=== PATIENT | male | born 1960 | race Caucasian/White ===

== ENCOUNTER 2017-01-16 17:26 | Emergency (ER) | payer OTHER ==
[~2017-01-16] VITALS: Ht 177.8 cm; Wt 77.8 kg
[2017-01-16 17:35] VITALS: TEMP 36.5; Ht 177.8 cm; Wt 77.8 kg
[2017-01-16] MEDS ORDERED: SODIUM CHLORIDE 0.9% 1000ML 2,000 ML IV STA (17:56)
[2017-01-16] MEDS ORDERED: ONDANSETRON 8 MG/54 ML D5W IV STA (18:04)
[2017-01-16 18:34] LABS: BASO % 0.2 %; BASO ABS # 0.01 K/uL (0-0.2); COMPLETE YES; EOS % 0.4 %; HEMATOCRIT 48.8 % (42-52); IG% 0.2 %; LYMPH % 21.2 %; MEAN CELL VOLUME 96.4 fL (80-100); MEAN CORPUSCULAR HEMOGLOBIN 35.4 pg (25-34); MEAN CORPUSCULAR HGB CONC 36.7 g/dl (32-36); MEAN PLATELET VOLUME 9.5 fL (7.4-10.4); PLATELET COUNT 199 K/uL (130-400); RED BLOOD COUNT 5.06 M/uL (4.7-6.1); WHITE BLOOD COUNT 4.71 K/uL (4.8-10.8)
[2017-01-16 18:50] LABS: BUN/CREATININE RATIO 4.9 (10-20); CALCIUM 9.2 mg/dl (8.5-10.1); CREATININE 0.91 mg/dl (0.60-1.40)
[2017-01-16] MEDS ORDERED: LORAZEPAM 2 MG/ML 1 ML VIAL IV STA (19:47)
[2017-01-16] MEDS ORDERED: PROMETHAZINE HCL INJ 25 MG in SODIUM CHLORIDE 0.9% 50ML 50 ML IV STA (19:47)
[2017-01-16] MEDS ORDERED: SODIUM CHLORIDE 0.9% 1000ML 1,000 ML IV STA (19:48)
[2017-01-16 20:24] LABS: URINE APPEARANCE CLEAR (CLEAR); URINE COLOR ORANGE; URINE EPITHELIAL CELL AUTO >30 /lpf (0-5); URINE NITRITE NEG (NEG); UROBILINOGEN NEG (NEG)
[2017-01-16 20:38] LABS: MANUAL MICROSCOPIC REQUIRED? NO; REVIEW REQ? YES
[2017-01-16 20:39] LABS: URINE BILIRUBIN NEG (NEG)
--- NOTE | 2017-01-16 20:42 | DIAGNOSTIC IMAGING REPORT ---
ULTRASOUND RIGHT UPPER QUADRANT ABDOMEN CLINICAL HISTORY: Right upper quadrant abdominal pain. Elevated hepatic transaminases. COMPARISON STUDY: Abdominal CT dated 01/03/2016. TECHNIQUE: Real-time, grayscale, and color flow sonography of the right upper quadrant of the abdomen was performed. Images are reviewed in the transverse and longitudinal planes. FINDINGS: Liver: The liver is normal in size and slightly heterogeneous in echotexture. There is no intrahepatic biliary ductal dilatation. The main portal vein is patent. Gallbladder: The gallbladder is normal in appearance. No gallstones are identified. There is no gallbladder wall thickening or pericholecystic fluid. A sonographic Cooper's sign is reportedly absent. The common bile duct measures up to 0.3 cm in diameter. Pancreas: Visualized portions of the pancreatic head and body are normal in appearance. The distal pancreas was not visualized. The splenic vein is patent. Right kidney: Survey images of the right kidney demonstrate normal size and echotexture. There is no hydronephrosis. Ascites: None. IMPRESSION: No acute sonographic abnormality is identified in the right upper quadrant. No gallstones are seen. Electronically signed by: Gildardo Hawthorne M.D. 01/16/2017 8:41 PM Dictated Date/Time: 01/16/2017 8:39 PM
[2017-01-16 22:00] VITALS: BP 134/88; PULSE 87; O2SAT 94
[2017-01-16] MEDS ORDERED: PHENERGAN 25MG HOMEPACK PO ONE (22:15)
--- NOTE | 2017-01-16 22:15 | EMERGENCY ROOM VISIT NOTE ---
History Report prepared by Faina: Nesha Blackburn Under the Supervision of: Dr. José Miguel Vela M.D. First contact with patient: 17:56 Chief Complaint: VOMITING Stated Complaint: VOMITING, SHAKING Nursing Triage Summary: triage note: pt reports nausea, vomitting, diarrhea since this am. History of Present Illness The patient is a 56 year old male who presents to the Emergency Room with complaints of an episode of vomiting starting this morning. The patient complains of nausea, diarrhea, chills, and diaphoresis. The patient states that he had two bowel movements of diarrhea this morning and his last vomiting episode was just a few minutes ago. He reports that he does drink 2 6 packs a day, but couldn't drink anything this morning. He reports that when he tried to eat or drink anything this morning, he couldn't keep it down. Pt denies LOC, headache, fevers, visual changes, neck pain, chest pain, breathing difficulties , abdominal pain, back pain, melena, hematochezia, urinary symptoms, numbness, weakness, lymphadenopathy, rash, or other complaints. Source of History: patient Onset: this morning Position: other (global) Quality: other (global) Timing: other (episode) Associated Symptoms: + chills, + diaphoresis, + nausea, + diarrhea, No fevers, No abdominal pain, No melena, No hematochezia, No urinary symptoms Review of Systems See HPI for pertinent positives and negatives. A total of ten systems were reviewed and were otherwise negative. Past Medical & Surgical Medical Problems: (1) Alcohol abuse (2) BPH (benign prostatic hyperplasia) (3) Diabetes mellitus (4) Diabetic neuropathy associated with type 2 diabetes mellitus (5) Diabetic retinopathy (6) HTN (hypertension) (7) Rapid atrial fibrillation (8) Tobacco abuse Family History Denies family medical history Social History Smoking Status: Current Every Day Smoker Alcohol Use: other (2 6 packs a day) Drug Use: none Marital Status: in relationship Housing Status: lives with significant other Occupation Status: employed Current/Historical Medications Scheduled Finasteride (Proscar), 5 MG PO DAILY Metoprolol Tartrate (Metoprolol Tartrate), 50 MG PO BID Omeprazole (Prilosec), 20 MG PO DAILY Tamsulosin Hcl (Flomax), 0.4 MG PO DAILY Scheduled PRN Tramadol (Ultram), 100 MG PO BID PRN for Pain Allergies Coded Allergies: No Known Allergies (Unverified , 06/13/15) Physical Exam Vital Signs Date Time Temp Pulse Resp B/P (MAP) Pulse Ox O2 Delivery O2 Flow Rate FiO2 01/16/17 22:00 87 22 134/88 94 Room Air 01/16/17 20:00 98 20 156/89 98 Room Air 01/16/17 18:34 76 01/16/17 17:35 36.5 108 20 121/85 99 Room Air Physical Exam GENERAL: Awake, alert, mildly ill appearing, no distress HEAD: Normocephalic, atraumatic. No edema. EYES: Normal conjunctiva. Sclera non-icteric. OROPHARYNX: Lips, tongue, and mucosa unremarkable. No erythema or exudate. NECK: Supple. No nuchal rigidity. FROM. No adenopathy. RESPIRATORY: CTA bilaterally. No wheezes rales or rhonchi. CARDIAC: Borderline tachycardic rate, normal rhythm. ABDOMEN: Soft, non distended. No tenderness to palpation. No rebound or guarding. MUSCULOSKELETAL: Atraumatic. No edema. NEURO: Normal sensorium. SKIN: No rash or jaundice noted Medical Decision & Procedures ER Provider Diagnostic Interpretation: Radiology results as stated below per my review and radiologist interpretation: ULTRASOUND RIGHT UPPER QUADRANT ABDOMEN CLINICAL HISTORY: Right upper quadrant abdominal pain. Elevated hepatic transaminases. COMPARISON STUDY: Abdominal CT dated 01/03/2016. TECHNIQUE: Real-time, grayscale, and color flow sonography of the right upper quadrant of the abdomen was performed. Images are reviewed in the transverse and longitudinal planes. FINDINGS: Liver: The liver is normal in size and slightly heterogeneous in echotexture. There is no intrahepatic biliary ductal dilatation. The main portal vein is patent. Gallbladder: The gallbladder is normal in appearance. No gallstones are identified. There is no gallbladder wall thickening or pericholecystic fluid. A sonographic Cooper's sign is reportedly absent. The common bile duct measures up to 0.3 cm in diameter. Pancreas: Visualized portions of the pancreatic head and body are normal in appearance. The distal pancreas was not visualized. The splenic vein is patent. Right kidney: Survey images of the right kidney demonstrate normal size and echotexture. There is no hydronephrosis. Ascites: None. IMPRESSION: No acute sonographic abnormality is identified in the right upper quadrant. No gallstones are seen. Electronically signed by: Gildardo Hawthorne M.D. 01/16/2017 8:41 PM Dictated Date/Time: 01/16/2017 8:39 PM Laboratory Results 01/16/17 18:15 Red Blood Count 5.06, Mean Corpuscular Volume 96.4, Mean Corpuscular Hemoglobin 35.4, Mean Corpuscular Hemoglobin Concent 36.7, Mean Platelet Volume 9.5, Neutrophils (%) (Auto) 67.0, Lymphocytes (%) (Auto) 21.2, Monocytes (%) (Auto) 11.0, Eosinophils (%) (Auto) 0.4, Basophils (%) (Auto) 0.2, Neutrophils # (Auto ) 3.15, Lymphocytes # (Auto) 1.00, Monocytes # (Auto) 0.52, Eosinophils # (Auto ) 0.02, Basophils # (Auto) 0.01 01/16/17 18:15 Test 01/16/17 18:15 01/16/17 19:40 White Blood Count 4.71 K/uL (4.8-10.8) Red Blood Count 5.06 M/uL (4.7-6.1) Hemoglobin 17.9 g/dL (14.0-18.0) Hematocrit 48.8 % (42-52) Mean Corpuscular Volume 96.4 fL (80-100) Mean Corpuscular Hemoglobin 35.4 pg (25-34) Mean Corpuscular Hemoglobin Concent 36.7 g/dl (32-36) Platelet Count 199 K/uL (130-400) Mean Platelet Volume 9.5 fL (7.4-10.4) Neutrophils (%) (Auto) 67.0 % Lymphocytes (%) (Auto) 21.2 % Monocytes (%) (Auto) 11.0 % Eosinophils (%) (Auto) 0.4 % Basophils (%) (Auto) 0.2 % Neutrophils # (Auto) 3.15 K/uL (1.4-6.5) Lymphocytes # (Auto) 1.00 K/uL (1.2-3.4) Monocytes # (Auto) 0.52 K/uL (0.11-0.59) Eosinophils # (Auto) 0.02 K/uL (0-0.5) Basophils # (Auto) 0.01 K/uL (0-0.2) RDW Standard Deviation 42.8 fL (36.4-46.3) RDW Coefficient of Variation 12.2 % (11.5-14.5) Immature Granulocyte % (Auto) 0.2 % Immature Granulocyte # (Auto) 0.01 K/uL (0.00-0.02) Anion Gap 11.0 mmol/L (3-11) Est Creatinine Clear Calc Drug Dose 94.7 ml/min Estimated GFR () 109.6 Estimated GFR (Non- 94.5 BUN/Creatinine Ratio 4.9 (10-20) Calcium Level 9.2 mg/dl (8.5-10.1) Total Bilirubin 1.7 mg/dl (0.2-1) Direct Bilirubin 0.5 mg/dl (0-0.2) Aspartate Amino Transf (AST/SGOT) 75 U/L (15-37) Alanine Aminotransferase (ALT/SGPT) 67 U/L (12-78) Alkaline Phosphatase 80 U/L (45-117) Total Protein 7.2 gm/dl (6.4-8.2) Albumin 3.8 gm/dl (3.4-5.0) Lipase 161 U/L (73-393) Urine Color ORANGE Urine Appearance CLEAR (CLEAR) Urine pH 7.0 (4.5-7.5) Urine Specific Easley 1.020 (1.000-1.030) Urine Protein TRACE (NEG) Urine Glucose (UA) NEG (NEG) Urine Ketones 1+ (NEG) Urine Occult Blood NEG (NEG) Urine Nitrite NEG (NEG) Urine Bilirubin NEG (NEG) Urine Urobilinogen NEG (NEG) Urine Leukocyte Esterase TRACE (NEG) Urine WBC (Auto) 5-10 /hpf (0-5) Urine RBC (Auto) 5-10 /hpf (0-4) Urine Hyaline Casts (Auto) 1-5 /lpf (0-5) Urine Epithelial Cells (Auto) >30 /lpf (0-5) Urine Bacteria (Auto) NEG (NEG) Urine Renal Epithelial Cells /lpf (0-5) Urine Sperm (Auto) PRESENT (NOT PRESENT) Laboratory results reviewed by me Medications Administered Medications (Trade) Dose Ordered Sig/Alyssia Route Start Time Stop Time Status Last Admin Dose Admin Sodium Chloride 2,000 ml @ 999 mls/hr Q2H1M STAT IV 6/22/17 17:56 01/16/17 19:56 DC 01/16/17 18:25 999 MLS/HR Ondansetron HCl (Zofran 8mg Iv) 8 mg NOW STAT IV 01/16/17 18:04 01/16/17 18:05 DC 01/16/17 18:25 8 MG Promethazine HCl 25 mg/Sodium Chloride 51 ml @ 204 mls/hr NOW STAT IV 01/16/17 19:47 01/16/17 20:01 DC 01/16/17 20:03 204 MLS/HR Lorazepam (Ativan Inj) 1 mg NOW STAT IV 01/16/17 19:47 01/16/17 19:49 DC 01/16/17 19:56 1 MG Sodium Chloride 1,000 ml @ 200 mls/hr Q5H STAT IV 01/16/17 19:48 01/17/17 00:47 01/16/17 20:57 200 MLS/HR ED Course 175: Ordered NSS 2000 ml @ 999 mls/hr IV. 1802: The patient was evaluated in room C5. A complete history and physical exam was performed. 1803: Ordered Zofra 8mg Iv 8 mg IV. 1934: I reevaluated the patient. His nausea and vomiting has resolved. Upon reexamination he has right upper quadrant tenderness, so he will be having an ultra sound done. 1946: Ordered Ativan Inj 1 mg IV, Promethazine HCl 25 mg/Sodium Chloride 51 ml @ 204 mls/hr IV. 1947: Ordered NSS 1000 ml @ 200 mls/hr IV. 2102: I reevaluated the patient. He is feeling better. Oral challenge initiated. 2204: Patient reevaluated. Oral challenge is going well. Discussed further evaluation and management as an outpatient. Home pack for Phenergan will be given. Close follow-up with PCP will be necessary. Discussed his alcohol use. I gave my usual and customary discussion regarding this issue. Medical Decision Medication Reconciliation: I attest that I have personally reviewed the patient' s current medication list Blood pressure screening: Patient was found to have an elevated blood pressure and was referred to their primary doctor for recheck and further treatment. Triage Nursing notes reviewed. The patient's presentation and history were concerning for nausea vomiting and diarrhea. Etiologies such as gastroenteritis, food borne illness, infections, obstruction , pancreatitis, appendicitis, diverticulitis, inflammatory bowel disease, GI bleed, biliary pathology, toxicologic, alcohol-related issues, as well as others were entertained. The patient was evaluated. He had a benign abdomen. He had vomiting and diarrhea. He was hydrated and given Zofran. On reassessment the patient was doing better. He was checked again and was having some right upper quadrant abdominal discomfort. His CBC and chemistry panel are unremarkable although his LFTs were minimally elevated. He has had subtle elevations in the past. Since the patient has minimal elevation of his LFTs he went for ultrasound imaging which was unremarkable. I suspect that this may be related to his alcohol use which seems to be significant. The patient was given Phenergan and a dose of IV Ativan. He does not appear to be exhibiting significant signs of withdrawal at this time. He denies any history of blacking out, withdrawals, or seizures. He will need further management for his alcohol use. The patient was given an oral challenge and did very well with this. He desired discharge. Since he has no pain at this point in time and his diagnostic testing is rather unremarkable I believe he can be discharged to follow-up closely as an outpatient. The patient was in agreement. Return instructions were outlined and he was discharged in stable condition. By the evaluation outlined above other emergent etiologies such as those listed in the differential, as well as others, were deemed relatively unlikely. The patient was educated about the findings as listed above. All questions were answered and the patient was pleased with the treatment. Return instructions were outlined and the patient was discharged in stable condition. The patient was referred to his PCP for follow-up for a recheck of the current condition. Impression Primary Impression: Nausea, vomiting, and diarrhea Additional Impression: Alcohol abuse Scribe Attestation The scribe's documentation has been prepared under my direction and personally reviewed by me in its entirety. I confirm that the note above accurately reflects all work, treatment, procedures, and medical decision making performed by me. Departure Information Dispostion Home / Self-Care Referrals Jojo Mckeon MD (PCP) Patient Instructions [facility] Additional Instructions VOMITING INSTRUCTIONS: DO NOT drive, drink alcohol, operate machinery, or perform dangerous activities today. You were given medications in the ER that can affect your ability to safely function or operate a vehicle. Phenergan(promethazine) tablets 25mg: Take one every six hours as needed for nausea. Avoid alcohol, operating machinery or dangerous equipment, working on ladders or roofs, DRIVING, or situations where being under the influence may be dangerous. Ibuprofen(Motrin, Advil) may be used for fever or pain. Use 600mg every six hours as needed. Take with food. Avoid using more than 2400mg in a 24 hour period. Do not use 2400mg per day for more than three consecutive days without physician direction. Prolonged inappropriate use can lead to stomach upset or ulcers. Rest and drink plenty of fluids as tolerated. Slow sips of water or sports drinks are recommended instead of large amounts all at once. Continue current medications. Once your stomach is settled start with a clear liquid diet (jello, soup broth, etc.) and then advance as tolerated. You should avoid full, heavy meals for about 24 hrs from the time your symptoms resolved. Return to the ER for persistent vomiting, fevers, abdominal pain, chest pains, difficulty breathing, black or bloody stools, worsening of your condition, or as needed. Follow up with your primary physician in one to 2 Days for a recheck of your current condition. A recheck of your blood pressure and liver functions will be necessary. Also discussed your alcohol use. Problem Qualifiers
== END 2017-01-16 22:25 | disposition home or self-care (01) ==
LOC: C.EDB 17:27 → C.EDC 22:25
DX: R11.2 Nausea with vomiting, unspecified (principal); R11.0 Nausea; F10.10 Alcohol abuse, uncomplicated; I10 Essential (primary) hypertension; E11.40 Type 2 diabetes mellitus with diabetic neuropathy, unspecified; E11.319 Type 2 diabetes mellitus with unspecified diabetic retinopathy without macular edema; I48.91 Unspecified atrial fibrillation; F17.200 Nicotine dependence, unspecified, uncomplicated; Z79.899 Other long term (current) drug therapy

== ENCOUNTER → 2017-01-16 | Outpatient (CLI) | payer OTHER ==
[~2017-01-16] MED LIST: ASPI81TA28 PO; FINA5TAB4 PO; METO50TA17 PO; PRLSR20 PO; TAMS0.4C38 PO; TRAM-10 PO
[2017-01-16 12:01] LABS: BASO % 0.5 %; BASO ABS # 0.02 K/uL (0-0.2); COMPLETE YES; EOS % 3.4 %; HEMATOCRIT 48.7 % (42-52); LYMPH % 40.7 %; LYMPH ABS # 1.77 K/uL (1.2-3.4); MEAN CORPUSCULAR HEMOGLOBIN 35.7 pg (25-34); MEAN CORPUSCULAR HGB CONC 36.8 g/dl (32-36); MEAN PLATELET VOLUME 9.6 fL (7.4-10.4); MONO % 9.4 %; PLATELET COUNT 221 K/uL (130-400); RED BLOOD COUNT 5.02 M/uL (4.7-6.1); WHITE BLOOD COUNT 4.35 K/uL (4.8-10.8)
[2017-01-16 12:28] LABS: ESTIMATED AVERAGE GLUCOSE 111 mg/dl; HA1C FLAG Normal (Normal)
[2017-01-16 12:29] LABS: ALT/SGPT 64 U/L (12-78); BLOOD UREA NITROGEN 3 mg/dl (7-18); BUN/CREATININE RATIO 4.4 (10-20); CALCIUM 8.6 mg/dl (8.5-10.1); CARBON DIOXIDE 23 mmol/L (21-32); CHLORIDE 102 mmol/L (98-107); CHOLESTEROL 205 mg/dl (0-200); CREATININE 0.73 mg/dl (0.60-1.40); GLUCOSE 117 mg/dl (70-99); SODIUM 138 mmol/L (136-145); TRIGLYCERIDES 124 mg/dl (0-150); VERY LOW DENSITY LIPOPROT CALC 25 mg/dl
[2017-01-16 12:39] LABS: CHOLESTEROL/HDL RATIO 2.1; HDL CHOLESTEROL 96 mg/dl; LDL CHOLESTEROL CALCULATED 84 mg/dl
== END | disposition home or self-care (01) ==
LOC: C.LABPBG 08:55
PROVIDERS: ATTEND Family Medicine
DX: E11.42 Type 2 diabetes mellitus with diabetic polyneuropathy (principal); E11.9 Type 2 diabetes mellitus without complications; F41.9 Anxiety disorder, unspecified

== ENCOUNTER 2021-12-21 10:48 | Observation (INO) ==
--- NOTE | 2021-12-13 15:16 | Anesthesiology Consultation ---
Date of Service December 13, 2021 Assessment & Plan Chart Review Chart Review: Acceptable Risk for Surgery Consults Requested none Cardiology note dated 11/14/2021 " risks are explained at least moderate multifactorial recommend nuclear stress test." Nuclear stress test was performed on 12/06/2021 which was negative for ischemia. History Surgery Operation Date: 12/21/21 16:00 Proposed Procedures p Right Ankle Incision and Drainage Medial Ulceration, Saucerization Medial Malleolus with Imlpantation of Stimulus Beads, Possible Evacuation of Bone Cyst Talus, Application Picc Line for Antibiotic - Davide Robles DO Height/Weight Height: 5 ft 10 in Weight: 94.347 kg Allergies Allergy/AdvReac Type Severity Reaction Status Date / Time No Known Allergies Allergy Verified 12/13/21 13:18 Medications Home Medications Medication Instructions Recorded Confirmed Last Taken metoprolol tartrate 50 mg tablet 50 mg PO BID tab 03/29/19 12/13/21 02/06/21 08:00 Medical Marijuana 1 dose INHALATION DAILY PRN 03/14/21 12/13/21 Unknown metformin 1,000 mg tablet 500 mg PO BID #180 tab 05/01/21 12/13/21 Unknown cholecalciferol (vitamin D3) 1,250 50,000 unit PO .COMPLEX 90 Days 10/29/21 12/13/21 Unknown mcg (50,000 unit) capsule #24 cap atorvastatin 80 mg tablet 80 mg PO PM #90 tab 11/01/21 12/13/21 Unknown amitriptyline 25 mg tablet 25 mg PO QPM #30 tab 11/12/21 12/13/21 Unknown meloxicam 7.5 mg tablet 7.5 mg PO BID PRN #180 tab 11/12/21 12/13/21 Unknown Past Medical History Medical History (Updated 12/13/21 @ 15:11 by Dorie Lee DO) Acne Alcohol dependence, daily use 6 pack beer per day per patient Anxiety Arthritis Atrial fibrillation Dx 2014, follows with [facility] cardiology Background diabetic retinopathy associated with type 2 diabetes mellitus BPH (benign prostatic hyperplasia) COPD (chronic obstructive pulmonary disease) Diabetes type 2, uncontrolled NIDDM Diabetic neuropathy Hyperlipidemia Hypertension Mass of subcutaneous tissue of back stable x several years (right upper side) Pancreatic mass Stable per pt Personal history of diabetic foot ulcer Right Segmental and somatic dysfunction of upper extremity Temporomandibular joint disorder Right side clicking, no locking Exercise / Class Metabolic Activity III < 4 Walking/Shop/Light housework Chronic cough, RAMOS with minimal activity Past Family History Family History Grandfather Myocardial infarction Father Diabetes Mother Dementia Brother , GI hemorrhage, age 61 No problems noted. Sister No problems noted. Sister No problems noted. Sister No problems noted. Denies family history of Ovarian cancer Prostate cancer Breast cancer Colorectal cancer Past Surgical History Surgical History (Updated 12/13/21 @ 15:11 by Dorie Lee DO) History of esophagogastroduodenoscopy (EGD) History of hand surgery CHILD History of tooth extraction Status post laser cataract surgery of both eyes Past Anesthesia History No Hx of Anesthesia Complications and No Family Hx of Anesthesia Complications History of PONV No Hx of PONV and No Hx of Motion Sickness Social History Smoking Status: Current every day smoker tobacco type: cigarettes Smoking cigarettes per day: 1 PPD x 40+ years ADVISED Do You Dip or Chew Tobacco: No Hx Alcohol Use: Yes (6 PCK PER DAY) Alcohol type: beer alcohol intake frequency: 3 or more drinks per day Hx Substance Use: Yes substance use type: marijuana Substance Use Type Other:: medical card prn Last Used Substance Other:: 4 DAYS AGO- ONLY USES WHEN NEEDED, NOT DAILY Testing Laboratory Results 10/23/2021 Sodium 133 Potassium 4.6 BUN/creatinine 13/1.07 Glucose 288 Hemoglobin A1c 9.8 W BC 6.9 H/H16.3/44.7 Platelet 266 Electrocardiogram Date: 03/08/21 Findings: + NSR @ (90) Echocardiogram Date: 01/04/21 EF: 55-59 LV Function: normal Other Findings: + LVH (Mild concentric) Valvular Disease: + no significant valvular disease Stress Test Date: 12/06/21 Type: nuclear Findings: + WNL and + achieved max HR; no ischemia Resting EF: >70% Resting LV Function: normal Resting RWMA: + none Valvular Disease: no significant valvular disease
--- NOTE | 2021-12-20 16:36 | History & Physical Report ---
Date of Service December 20, 2021 Assessment & Plan (1) Closed trimalleolar fracture of right ankle with nonunion: Plan: Schedule a Right Ankle Incision and Drainage Medial Ulceration, Saucerization Medial Malleolus with Implantation of Antibiotic Stimulan Beads, Possible Evacuation of Bone Cyst Talus for 12/20/2021. All potential risks, benefits, complications, alternatives, and rehab have been discussed with the patient and he wishes to proceed. Plan for ASA 81 mg BID x 4 wks for post op DVT prophylaxis. We also discussed probable 6 weeks IV antibiotics post procedure. (2) Achilles tendon contracture, right: (3) Post-traumatic arthritis of ankle: (4) Acquired valgus deformity of right ankle: (5) Ulcer of right ankle: (6) Osteomyelitis of right tibia: History of Present Illness Chief Complaint: Right ankle wound/deformity Primary Care Provider: Jojo Mckeon MD This is a patient who sustained a right ankle trimalleolar ankle fracture approximately 1 year ago. He was instructed to maintain NWB status but he failed to do so. He was later set up for a pantalar fusion with a retrocalcaneal nail but was later canceled because inpatient surgeries were not being performed secondary to Covid admissions at [facility]. The patient then returned to the office with draining wound at the medial malleolus after he continued to walk on the lower leg. An MRI noted bone marrow edema within the medial malleolus at the level of the medial malleolus ulceration. He is now being set up for surgical I & D of the ankle wound. Allergies Allergy/AdvReac Type Severity Reaction Status Date / Time No Known Allergies Allergy Verified 12/13/21 13:18 Home Medications Medication Instructions Recorded Confirmed Type metoprolol tartrate 50 mg tablet 50 mg PO BID tab 03/29/19 12/13/21 History Medical Marijuana 1 dose INHALATION DAILY PRN 03/14/21 12/13/21 History metformin 1,000 mg tablet 500 mg PO BID #180 tab 05/01/21 12/13/21 Rx cholecalciferol (vitamin D3) 1,250 50,000 unit PO .COMPLEX 90 Days 10/29/21 12/13/21 Rx mcg (50,000 unit) capsule #24 cap atorvastatin 80 mg tablet 80 mg PO PM #90 tab 11/01/21 12/13/21 Rx amitriptyline 25 mg tablet 25 mg PO QPM #30 tab 11/12/21 12/13/21 Rx meloxicam 7.5 mg tablet 7.5 mg PO BID PRN #180 tab 11/12/21 12/13/21 Rx Past Med/Surg History Medical History Acne Alcohol dependence, daily use 6 pack beer per day per patient Anxiety Arthritis Atrial fibrillation Dx 2014, follows with [facility] cardiology Background diabetic retinopathy associated with type 2 diabetes mellitus BPH (benign prostatic hyperplasia) COPD (chronic obstructive pulmonary disease) Diabetes type 2, uncontrolled NIDDM Diabetic neuropathy Hyperlipidemia Hypertension Mass of subcutaneous tissue of back stable x several years (right upper side) Pancreatic mass Stable per pt Personal history of diabetic foot ulcer Right Segmental and somatic dysfunction of upper extremity Temporomandibular joint disorder Right side clicking, no locking Surgical History History of esophagogastroduodenoscopy (EGD) History of hand surgery CHILD History of tooth extraction Status post laser cataract surgery of both eyes Family History Grandfather Myocardial infarction Father Diabetes Mother Dementia Brother , GI hemorrhage, age 61 No problems noted. Sister No problems noted. Sister No problems noted. Sister No problems noted. Denies family history of Ovarian cancer Prostate cancer Breast cancer Colorectal cancer Social History Smoking Status: Current every day smoker Tobacco Type: Cigarettes Age Started Using Tobacco: 19; packs per day: 1; Cigarettes Per Day: 1 PPD x 40+ years ADVISED; Second Hand Exposure: No; Hx Alcohol Use: Yes (6 PCK PER DAY) Alcohol type: beer Alcohol type Comment: 6 PACK DAILY PER PT Hx Substance Use: Yes Last Used Substance Other:: 4 DAYS AGO- ONLY USES WHEN NEEDED, NOT DAILY Substance Use Type Other:: medical card prn Preferred Language: Mongolian Communication Ability: Effective Visual Impairment: No Limitations Hearing Ability: Normal Supervisor Waterproofing Required: No Beliefs That Will Affect Care: None marital status: Single Current Living Situation: Alone Current Living Situation Comment: states has no one to help current occupational status: employed current occupation: [employer] Feels Safe at Home: Yes Childhood Exposure to Second-Hand Smoke: No caffeine: No during the past year weight has: remained stable Dental Care, Regularly: No Physical Activity Frequency: Does not Exercise Seatbelt Use: always Sunscreen Use: No Assistive Devices: Crutches, Denture - Upper, Denture - Lower, Glasses and Wheelchair Physical Exam Constitutional: well developed and well nourished; no acute distress ENMT: external ear and nose normal, oropharynx normal Neck: trachea midline Respiratory: normal respiratory effort, lungs clear to auscultation Cardiovascular: Rate/Rhythm: regular rate and regular rhythm Gastrointestinal (Abdomen): normal bowel sounds, soft, nontender, no hepatosplenomegaly Musculoskeletal: Ankle: + deformity (Valgus right ankle) and + skin erythema (Mild right medial malleolus); no ecchymosis Skin: no rashes, warm and dry + ulcer (Right medial ankle) Neurologic: normal touch/pain/proprioception Psychiatric: A+Ox3, euthymic affect Speech: normal rate/rhythm/volume of speech Lymphatic: no cervical or axillary lymphadenopathy
[~2021-12-21 10:48] MED LIST changes: -ASPI81TA28 PO; -FINA5TAB4 PO; +LACTATED RINGER'S 1,000 ML IV SCH; -METO50TA17 PO; -PRLSR20 PO; -TAMS0.4C38 PO; -TRAM-10 PO; +ceFAZolin 2000MG 2,000 MG/15 ML SYR IV SCH
--- NOTE | 2021-12-21 11:14 | History & Physical Bridge Note ---
Date of Service December 21, 2021 History & Physical Bridge Note I have examined the patient, reviewed the History & Physical and in the interval since the performance of the History & Physical I have noted the following changes of clinical significance: no changes noted
[2021-12-21] MEDS ORDERED: ROPIVACAINE 0.5% 5 MG/ML 30 ML VIAL ONE ×2 (12:47→13:45)
[2021-12-21] MEDS ORDERED: MIDAZOLAM HCL 1 MG/ML 2ML VIAL ONE (13:00)
[2021-12-21] MEDS ORDERED: ONDANSETRON INJ 2 MG/ML 2 ML VIAL ONE (13:00)
[2021-12-21] MEDS ORDERED: PROPOFOL IV EMULSION 10 MG/ML 20 ML VIAL IV ONE (13:00)
[2021-12-21] MEDS ORDERED: fentaNYL citrate 100 MCG/2 ML VIAL ONE (13:00)
[2021-12-21] MEDS ORDERED: DEXAMETHASONE SOD INJ 4 MG/ML VIAL IV PRN (14:01)
[2021-12-21] MEDS ORDERED: HYDROmorphone INJ 2 MG/ML SYR/VIAL IV PRN (14:01)
[2021-12-21] MEDS ORDERED: ACETAMINOPHEN 500 MG TAB PO STA (14:01)
[2021-12-21] MEDS ORDERED: ONDANSETRON INJ 2 MG/ML 2 ML VIAL IV PRN ×2 (14:01→17:31)
[2021-12-21] MEDS ORDERED: ePHEDrine sulfate 50 MG/ML AMP IV PRN (14:01)
[2021-12-21] MEDS ORDERED: ATROPINE SULFATE 0.1 MG/ML 10ML SYR IV PRN (14:01)
[2021-12-21] MEDS ORDERED: ceFAZolin 330 MG/ML 1 GM VIAL ONE (14:13)
[2021-12-21] MEDS ORDERED: KETAMINE 50 MG/5 ML SYRINGE ONE (14:33)
[2021-12-21] MEDS ORDERED: VANCOMYCIN HCL 1000MG/20ML VIAL ONE (14:52)
[2021-12-21] MEDS ORDERED: GENTAMICIN SULFATE 40 MG/ML 2 ML VIAL ONE (14:52)
[2021-12-21] MEDS ORDERED: ePHEDrine sulfate 50 MG/ML SYR ONE (14:55)
--- NOTE | 2021-12-21 15:44 | Post Operative Brief Note ---
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 Saucerization Medial Malleolus bone with Implantation of antibiotic Stimulan Beads. Excision avulsion fracture medial talus- Davide Robles DO Surgeon Davide Robles DO [employer] Process Worker Josue Velasco PA-C Estimated Blood Loss 2 Findings Consistent with Post-Op Diagnosis Specimens Aerobic anaerobic Gram stain medial ankle deep soft tissue Bone for analysis of osteomyelitis medial malleolus Anesthesia Type General Regional Complications none Disposition Accompanied Patient To Recovery: No Overlapping Procedure I was present for: the critical portions of procedure. I was immediately available: during the entire case.
[2021-12-21] MEDS ORDERED: LABETALOL HCL IV 5 MG/ML 20ML IV STA ×2 (16:19→16:42)
[2021-12-21] MEDS ORDERED: LABETALOL HCL IV 5 MG/ML 20ML IV ONE (16:20)
[2021-12-21] MEDS ORDERED: NALOXONE HCL 0.4 MG/1 ML VIAL/CARP IV PRN (17:31)
[2021-12-21] MEDS ORDERED: HYDROmorphone INJ 0.5 MG/0.5 ML SYR IV PRN (17:31)
[2021-12-21] MEDS ORDERED: MELOXICAM 7.5 MG TAB PO PRN (17:31)
[2021-12-21] MEDS ORDERED: ALUMINUM/MAGNESIUM SUSP 30 ML UDC PO PRN (17:31)
[2021-12-21] MEDS ORDERED: PHARMACY GLYCEMIC MGMT CONSULT PRN (17:31)
[2021-12-21] MEDS ORDERED: NON-FORMULARY MEDICATION (Medical Marijuana 1 EA) INH PRN (17:31)
[2021-12-21] MEDS ORDERED: MAGNESIUM HYDROXIDE SUSP 30 ML UDC PO PRN (17:31)
[2021-12-21] MEDS ORDERED: oxyCODONE HCL IR 5 MG TAB (IMMEDIATE RELEASE) PO PRN (17:31)
[2021-12-21] MEDS ORDERED: METOCLOPRAMIDE HCL INJ 5 MG/ML 2 ML VIAL IV PRN (17:31)
[2021-12-21] MEDS ORDERED: bisacodyL 10 MG SUPP PR PRN (17:31)
[2021-12-21] MEDS ORDERED: diphenhydrAMINE Capsule 25 MG CAP PO PRN (17:31)
--- NOTE | 2021-12-21 17:46 | Anesthesiology Progress Note ---
Date of Service December 21, 2021 Anesthesia Post Procedure Vital Signs Vital Signs: Temp Pulse Pulse Resp BP Pulse Ox 12/21/21 17:15 36.4 C L 66 16 173/96 H 96 12/21/21 16:50 66 13 156/87 H 95 12/21/21 16:40 71 18 205/105 H 97 12/21/21 16:30 67 14 186/109 H 95 12/21/21 16:20 68 13 207/108 H 96 12/21/21 16:10 73 20 190/100 H 96 12/21/21 16:00 70 12 207/109 H 98 12/21/21 15:54 36.0 C L 72 21 183/87 H 100 12/21/21 11:00 36.5 C 72 18 168/96 H 98 Pain Intensity Right Lower Chest: Pain Intensity: 2 Transfer of Care Handoff Completed per policy Notes Mental Status: alert / awake / arousable Patient Amnestic to Procedure: Yes Nausea / Vomiting: adequately controlled Pain: adequately controlled Airway Patency, RR, SpO2: stable & adequate BP & HR: stable & adequate Hydration State: stable & adequate Anesthetic Complications: no major complications apparent
[2021-12-21] MEDS: SODIUM CHLORIDE 0.9% 1000ML 1,000 ML IV SCH (18:06)
--- NOTE | 2021-12-21 18:07 | Operative Report (OR) ---
DATE OF PROCEDURE: 12/21/2021 PREOPERATIVE DIAGNOSES: 1. Right ankle closed trimalleolar fracture with nonunion. 2. Ulcer, medial ankle, 2.5 cm diameter x 0.2 cm deep. 3. Osteomyelitis of the medial malleolus. 4. Achilles tendon contracture. 5. Posttraumatic arthritis of the right ankle. 6. Acquired valgus deformity of the right ankle. POSTOPERATIVE DIAGNOSES: 1. Right ankle closed trimalleolar fracture with nonunion. 2. Ulcer, medial ankle, 2.5 cm diameter x 0.2 cm deep. 3. Osteomyelitis of the medial malleolus. 4. Achilles tendon contracture. 5. Posttraumatic arthritis of the right ankle. 6. Acquired valgus deformity of the right ankle. 7. Avulsion fracture of the medial talus. PROCEDURES PERFORMED: 1. Right ankle irrigation and debridement, medial ankle ulceration, 2.5 cm in diameter x 0.2 cm deep including skin, dermis and subcutaneous tissue. 2. Saucerization of the medial malleolus bone with implantation of antibiotic Stimulan beads 5 mL. 3. Excision of avulsion fracture of the medial talus. SURGEON: Davide Robles DO. CUSTODIAL SERVICES MANAGER: Josue Velasco PA-C who was present for patient positioning, sterile prep and drape, management of retractors and instruments. He was present through the critical portions of the case i ncluding wound closure, application of sterile dressing and transport of the patient to recovery. ANESTHESIA: General, regional. SPECIMENS: 1. Aerobic, anaerobic, Gram stain, medial ankle deep soft tissue. 2. Bone for analysis of osteomyelitis, medial malleolus. DRAINS: None. COMPLICATIONS: None. BLOOD LOSS: 2 mL. PERTINENT HISTORY: This is a 61-year-old gentleman who sustained a trimalleolar ankle fracture. He was seen initially in the Emergency Department who recommended the patient to follow up in the clinic . The patient delayed seeking any type of care for multiple weeks and presented walking on the ankle with severe valgus deformity. The patient was instructed and scheduled for surgery. The patient is noncompliant and had other mitigating circumstances, which disallowed him from being able to have jimenes rgery. The patient then continued to walk on the ankle, developed a severe valgus deformity with a n onunion of the trimalleolar ankle fracture. Subsequently, had radiographs and MRI, which demonstrate osteomyelitis of the medial malleolus. He developed an ulcer over the medial ankle due to the sever e deformity, noted to be 2.5 cm diameter x 0.2 cm deep. Also noted to have Achilles tendon contractu re and pain and disability with ambulation. The patient was then scheduled for surgery as indicated. All potential risks, benefits, complications, alternatives, rehab potential for incomplete relief of symptoms, need for further surgery, DVT, PE, , persistent pain, swelling, scarring, weakness, ne urovascular injury, wound complications, nonunion, malunion, and need for further amputation were dis cussed with the patient. The patient decided to proceed with the procedure as indicated. DESCRIPTION OF PROCEDURE: The patient was taken to the operative suite and placed supine on the oper ating room table. After he had received a regional anesthetic, he was then anesthetized, LMA was pl aced. Tourniquet was placed high on the right thigh over cast padding. Right lower extremity was th en sterilely prepped and draped, elevated and exsanguinated with an Esmarch bandage and tourniquet in flated to 325 mmHg. Next, a 15 blade scalpel was used to make an incision along the medial ulceration measuring 2.5 cm di ameter x 0.2 cm deep. This was then incised in its mid plane, damaged portion of the tissue includin g skin, subcutaneous tissue and dermis were sharply excised using a 15 blade scalpel. Once the devit alized tissue was sharply excised, the tissue was then retracted with Yanet rakes revealing deep soft tissue and appeared to be fibrous tissue overlying the medial malleolus. The deep soft tissue was th en partially excised and then sent for culture, aerobic, anaerobic, Gram stain. Next, the tissue was excised and mobilized the medial malleolus. Medial malleolus was noted to be si gnificantly softened particularly adjacent to the periosteal layer. Next, due to the severe deformit y of the ankle and continued risk of having ulceration on the medial malleolus with the patient's cur rent condition, it was decided to perform a saucerization of the medial malleolus. Therefore, a lar ge wide osteotome was then used to excise the majority of the medial malleolus, leaving a small porti on of the medial malleolus to avoid violating the ankle joint. The large fragment of bone was then s harply excised using a 15 blade scalpel. Areas of nonunion were evident from the previous fracture. Next, an avulsion fracture of the medial talus was also encountered. This was then sharply excised using a combination of 15-blade scalpel and pituitary rongeur. All devitalized tissue and necrotic b one was removed from the site. Bone was sent as a specimen for pathology to assess for osteomyelitis . Next, top gloves and top sheet were changed. Pulsatile lavage was used with Ancef additive to lavage the site until clear. Next, antibiotic Stimulan beads 5 mL with vancomycin and gentamicin were then created and then the small beads were then packed into the medial ankle to provide continuous antibi otic elution. The deep remnants of the deltoid ligament and deep soft tissue were then closed using 2-0 Vicryl, the dermis was closed using buried interrupted 2-0 Vicryl, skin was closed using nylon jimenes tures. A sterile compressive dressing was applied, overwrapped with an Marino wrap. The tourniquet was released. The patient was awakened and taken to recovery in stable condition. Job ID: [id number]
--- NOTE | 2021-12-21 19:01 | Hospitalist Consultation ---
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 Doing well without complaints. - IVF/pain management/stool regimen/anti emetics/abx/DVT ppx per primary team. - rescue narcan ordered. - ordered blood cultures due to osteomyelitis and concern for bacteremia, although patient has already received abx. a previous wound culture (right toe) from September 2020 grew MSSA, would recommend ID consult, if concern for MSSA bacteremia, PICC line with 6 week IV cefazolin or other choice of abx may be necessary. (2) Diabetes type 2, uncontrolled: - on metformin at home, hold while inpt. - accuchecks ACHS with SSI. - encourage tight control of sugars for optimal wound healing. - continue amitriptyline 25mg HS for neuropathy starting tonight POD#0. (3) HTN (hypertension): - continue metoprolol tartrate 50 mg BID for HTN/afib starting tonight POD#0. (4) Hyperlipidemia: - continue atorvastatin 80 mg hs starting tonight POD#0. (5) Tobacco abuse: - offered nicotine patch, patient declines. (6) Alcohol dependence, daily use: - reports he consumes a 6 pack daily, last drink 2 days ago, 4. - offered alcohol while here overnight, patient denies. Will order AWSS. - recommend decreasing alcohol intake or cessation. - med/surg. - dvt ppx per primary team - full code. Supervising Physician Co-Signing Physician Notes I personally saw and examined the patient. I verified all renteria points and agree with Miranda Foster PA-C with the following exceptions and/or additions: 61 year old male presents for elective I&D right ankle ulceration. POD #0. O/E HS 1+2, no murmurs, Chest CTAB, surgical dressing not removed, no sensation in right toes, cap refill < 2s right toes, pulses not palpated as under surgical dressing. A/P Right ankle osteomyelitis - POD #0 I&D. would consider ID consult pending blood and surgical cultures. Blood cultures taken given OM noted and prior MSSA from September right toe. Prior MSSA from right toe concerning for needing IV antibiotic course. History of Present Illness Reason for Consultation: Medication management Attending Physician: Davide Robles DO History of Present Illness Mr. Lind is a 61-year-old male with past medical history significant for paroxysmal afib, hypertension, hyperlipidemia, DM2, daily alcohol use, BPH, and panic disorder who was admitted today for right ankle I&D with antibiotic beads implantation. Hospitalist group was consulted for medication management. Today, he is POD#0. He is doing well, without complaints. Allergies Allergy/AdvReac Type Severity Reaction Status Date / Time No Known Allergies Allergy Verified 12/21/21 11:19 Home Medications Medication Instructions Recorded Confirmed Type metoprolol tartrate 50 mg tablet 50 mg PO BID tab 03/29/19 12/21/21 History Medical Marijuana 1 dose INHALATION DAILY PRN 03/14/21 12/21/21 History metformin 1,000 mg tablet 500 mg PO BID #180 tab 05/01/21 12/21/21 Rx cholecalciferol (vitamin D3) 1,250 50,000 unit PO .COMPLEX 90 Days 10/29/21 12/21/21 Rx mcg (50,000 unit) capsule #24 cap atorvastatin 80 mg tablet 80 mg PO PM #90 tab 11/01/21 12/21/21 Rx amitriptyline 25 mg tablet 25 mg PO QPM #30 tab 11/12/21 12/21/21 Rx meloxicam 7.5 mg tablet 7.5 mg PO BID PRN #180 tab 11/12/21 12/21/21 Rx Patient History Medical History Acne Alcohol dependence, daily use 6 pack beer per day per patient Anxiety Arthritis Atrial fibrillation Dx 2014, follows with [facility] cardiology Background diabetic retinopathy associated with type 2 diabetes mellitus BPH (benign prostatic hyperplasia) COPD (chronic obstructive pulmonary disease) Diabetes type 2, uncontrolled NIDDM Diabetic neuropathy Hyperlipidemia Hypertension Mass of subcutaneous tissue of back stable x several years (right upper side) Pancreatic mass Stable per pt Personal history of diabetic foot ulcer Right Segmental and somatic dysfunction of upper extremity Temporomandibular joint disorder Right side clicking, no locking Surgical History History of esophagogastroduodenoscopy (EGD) History of hand surgery CHILD History of tooth extraction Status post laser cataract surgery of both eyes Family History Grandfather Myocardial infarction Father Diabetes Mother Dementia Brother , GI hemorrhage, age 61 No problems noted. Sister No problems noted. Sister No problems noted. Sister No problems noted. Denies family history of Ovarian cancer Prostate cancer Breast cancer Colorectal cancer Social History Smoking Status: Current every day smoker Tobacco Type: Cigarettes Age Started Using Tobacco: 19; packs per day: 1; Cigarettes Per Day: 1 PPD x 40+ years ADVISED; Second Hand Exposure: No; Do You Dip or Chew Tobacco: No; Tobacco Cessation Education Requested by Patient: No Hx Alcohol Use: Yes (6 PCK PER DAY) Alcohol type: beer Alcohol type Comment: 6 PACK DAILY PER PT Hx Substance Use: Yes Last Used Substance Other:: 4 DAYS AGO- ONLY USES WHEN NEEDED, NOT DAILY Substance Use Type Other:: medical card prn Preferred Language: Tristanian Communication Ability: Effective Visual Impairment: No Limitations Hearing Ability: Normal Hay Chopper Required: No Beliefs That Will Affect Care: None marital status: Single Current Living Situation: Alone Current Living Situation Comment: states has no one to help current occupational status: employed current occupation: SELF EMPLOYEED - [employer] Other Information That Helps Us Care for You: No Feels Safe at Home: Yes Safety Concerns: Feels Safe At This Time Childhood Exposure to Second-Hand Smoke: No caffeine: No during the past year weight has: remained stable Dental Care, Regularly: No Physical Activity Frequency: Does not Exercise Seatbelt Use: always Sunscreen Use: No Assistive Devices: Crutches, Denture - Upper, Denture - Lower, Glasses and Wheelchair Assistive Devices Comment: IS CURRENTLY USING WHEELCHAIR B/C ANKLE FX, STATES CAN GET AROUND OK Results & Data Results & Data ([facility]) Vital Signs (Past 12 Hours) Vital Signs Temp Pulse Pulse Resp BP Pulse Ox 12/21/21 18:15 36.2 C L 66 16 172/86 H 97 12/21/21 17:45 36.3 C L 66 16 170/78 H 97 12/21/21 17:15 36.4 C L 66 16 173/96 H 96 12/21/21 16:50 66 13 156/87 H 95 12/21/21 16:40 71 18 205/105 H 97 12/21/21 16:30 67 14 186/109 H 95 12/21/21 16:20 68 13 207/108 H 96 12/21/21 16:10 73 20 190/100 H 96 12/21/21 16:00 70 12 207/109 H 98 12/21/21 15:54 36.0 C L 72 21 183/87 H 100 12/21/21 11:00 36.5 C 72 18 168/96 H 98 Laboratory Results Abnormal lab results 12/21/21 12/21/21 12/21/21 Range/Units 11:30 15:54 17:17 POC Glucose 173 H 131 H 136 H (70-99) mg/dl PG Care Time/CCT Total # of Minutes Spent Total Time Spent with Patient: Total time spent is greater than 50% in coordination of care (as documented) at patient's floor/unit and/or counseling patient: Coding Level of Care Code 51645 Inpt Consult Level 4 Diagnoses HTN (hypertension) I10 Tobacco abuse Z72.0 Alcohol dependence, daily use F10.20 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
[2021-12-21] MEDS: INSULIN ASPART PER UNIT SC SCH ×2 (19:41→22:10)
[2021-12-21] MEDS ORDERED: LORazepam 1 MG TAB PO PRN (19:44)
[2021-12-21] MEDS: METOPROLOL TARTRATE 50 MG TAB PO SCH (19:47)
[2021-12-21] MEDS: DOCUSATE SODIUM 100 MG CAP PO SCH (19:47)
[2021-12-21] MEDS: ASPIRIN 81 MG ECTAB PO SCH (19:47)
[2021-12-21 20:04] LABS: Basophils # (auto) 0.02 K/uL (0-0.2); Basophils % (auto) 0.3 %; Eosinophils # (auto) 0.12 K/uL (0-0.5); Eosinophils % (auto) 1.8 %; Hematocrit (blood only) 41.6 % (42-52); Hemoglobin 14.6 g/dL (14.0-18.0); Immature Granulocytes # (auto) 0.01 K/uL (0.00-0.02); Immature Granulocytes % (auto) 0.1 %; Lymphocytes # (auto) 2.35 K/uL (1.2-3.4); Lymphocytes % (auto) 34.3 %; Mean Corpuscular Hemoglobin 33.3 pg (25-34); Mean Corpuscular Hgb Conc 35.1 g/dL (32-36); Mean Corpuscular Volume 94.8 fL (80-100); Mean Platelet Volume 9.3 fL (7.4-10.4); Monocytes # (auto) 0.51 K/uL (0.11-0.59); Monocytes % (auto) 7.4 %; Neutrophils # (auto) 3.84 K/uL (1.4-6.5); Neutrophils % (auto) 56.1 %; Platelet Count 198 K/uL (130-400); RDW Coefficient of Variation 11.9 % (11.5-14.5); RDW Standard Deviation 40.9 fL (36.4-46.3); Red Blood Count 4.39 M/uL (4.7-6.1); White Blood Count 6.85 K/uL (4.8-10.8)
[2021-12-21 20:33] LABS: Albumin Globulin Ratio 1.6 (0.9-2); BUN Creatinine Ratio 13.7 (10-20); Bilirubin,Total 0.8 mg/dl (0.2-1.0); Creatinine Clr Calc Pharmacy 94.6 ml/min; Est GFR (African American) 100.4 ml/min; Est GFR (Non-African American) 86.7 ml/min; Globulin 2.5 gm/dl (2.5-4.0); Potassium 3.8 mmol/L (3.5-5.1); Total Protein 6.5 gm/dl (6.0-8.3)
[2021-12-21] MEDS ORDERED: ATORVASTATIN 40 MG TAB PO SCH (21:00)
[2021-12-21] MEDS ORDERED: SENNA 8.6 MG TAB PO SCH (21:00)
[2021-12-21] MEDS ORDERED: AMITRIPTYLINE HCL 25 MG TAB PO SCH (21:00)
[2021-12-21] MEDS: ACETAMINOPHEN 500 MG TAB PO SCH (22:14)
[2021-12-21] MEDS: ceFAZolin 2000MG 2,000 MG/15 ML SYR IV SCH (22:14)
[2021-12-22] MEDS: SODIUM CHLORIDE 0.9% 1000ML 1,000 ML IV SCH (04:11)
[2021-12-22] MEDS: ACETAMINOPHEN 500 MG TAB PO SCH (05:44)
[2021-12-22] MEDS: ceFAZolin 2000MG 2,000 MG/15 ML SYR IV SCH (05:44)
[2021-12-22 06:26] LABS: Hematocrit (blood only) 39.5 % (42-52); Hemoglobin 13.9 g/dL (14.0-18.0); Mean Corpuscular Hemoglobin 33.4 pg (25-34); Mean Corpuscular Hgb Conc 35.2 g/dL (32-36); Mean Platelet Volume 9.8 fL (7.4-10.4); Platelet Count 188 K/uL (130-400); RDW Standard Deviation 40.8 fL (36.4-46.3); Red Blood Count 4.16 M/uL (4.7-6.1); White Blood Count 6.35 K/uL (4.8-10.8)
[2021-12-22 06:53] LABS: BUN Creatinine Ratio 12.4 (10-20); C Reactive Protein 1.05 mg/dl (0-0.5); Calcium 8.6 mg/dl (8.5-10.1); Creatinine Clr Calc Pharmacy 79.6 ml/min; Est GFR (African American) 81.4 ml/min; Est GFR (Non-African American) 70.3 ml/min; Potassium 4.2 mmol/L (3.5-5.1)
[2021-12-22] MEDS: METOPROLOL TARTRATE 50 MG TAB PO SCH (08:11)
[2021-12-22] MEDS: DOCUSATE SODIUM 100 MG CAP PO SCH (08:11)
[2021-12-22] MEDS: ASPIRIN 81 MG ECTAB PO SCH (08:12)
[2021-12-22] MEDS ORDERED: metFORMIN HCL 500 MG TAB PO SCH (09:00)
[2021-12-22] MEDS ORDERED: ERGOCALCIFEROL 50,000 UNITS 1250 MCG CAP PO SCH (09:00)
[2021-12-22] MEDS ORDERED: MULTIVITAMIN TAB PO SCH (09:00)
[2021-12-22] MEDS: INSULIN ASPART PER UNIT SC SCH ×2 (09:09→13:06)
--- NOTE | 2021-12-22 10:41 | Orthopedic Progress Note ---
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 Right ankle irrigation and debridement, medial ankle ulceration, 2.5 cm in diameter x 0.2 cm deep including skin, dermis and subcutaneous tissue. 2. Saucerization of the medial malleolus bone with implantation of antibiotic Stimulan beads 5 mL. 3. Excision of avulsion fracture of the medial talus. PT OT protocols. Limited weightbearing right lower extremity. DVT prophylaxis-aspirin p.o. twice daily, SCDs Pain management as written. DC planning-I have spoken to Josue Velasco PA-C from Dr. Robles's office today. It is our hope that the patient stays for at least 48 hours to see results of the cultures. There were plans for possible PIC line insertion if needed. However if patient is adamant about leaving and plans to sign out AMA, plans will be in place to send him home on p.o. Bactrim and Keflex with returning to the [facility] office early next week and to set up possible PICC line placement. I will discussed with patient in detail and we will see what he decides. Admission and Anticipated Discharge Date Admission Date: December 21, 2021 Subjective Postop day 1 Patient sitting in wheelchair at his bedside. No complaints of pain. He is taking his right ankle through range of motion without discomfort. Patient has a history of neuropathy. We discussed the possibility of plans for Dr. Robles keeping him for several days to watch his cultures and possible need for a PICC line. Patient has other ideas in mind. He feels that Dr. Robles said he would only be staying overnight. We discussed that Dr. Robles had spoken to me about this and felt that the patient would likely be here for several days. Patient states that he has too much going on at home and no one to help him to take care of things at home. He stated that he is likely going to be leaving today whether approved by Dr. Robles or not. Physical Exam Physical Exam: Dressings are clean, dry, and intact of the right ankle. Patient has neuropathy which remains consistent. Patient is taking the ankle through range of motion without discomfort. Results & Data ([facility]) Vital Signs (Past 12 Hours) Vital Signs Temp Pulse Pulse Resp BP Pulse Ox 12/22/21 08:07 64 155/87 H 12/22/21 07:52 36.7 C 65 16 175/96 H 95 12/22/21 04:10 36.8 C 68 18 139/78 94 12/21/21 23:02 71 170/93 H 12/21/21 22:41 36.5 C 73 18 167/113 H 98
--- NOTE | 2021-12-22 11:56 | Hospitalist Progress Note ---
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 Doing well without complaints. - IVF/pain management/stool regimen/anti emetics/abx/DVT ppx per primary team. - rescue narcan ordered. - Pathology on bone pending for osteomyelitis however WBC/ESR normal and CRP minimally elevated (expected post operatively) - Fortunately gram stain negative from surgical culture however full culture results pending - Discussed with Cornel Warren PA-C and if concern for osteomyelitis would consider ID follow up and antibiotics for this, however I see no evidence of this on prior CT imaging or labs. Follow up cultures as outpatient if patient leaves against medical advice. (2) Diabetes type 2, uncontrolled: Plan: HbA1C 9.8 in September - recommend close follow up with his PCP to address this on discharge - on metformin at home, continue on discharge, no change to outpatient recommended. - accuchecks ACHS with SSI. - encourage tight control of sugars for optimal wound healing. - continue amitriptyline 25mg HS for neuropathy (3) HTN (hypertension): Plan: - continue metoprolol tartrate 50 mg BID - given potential risk of over-treatment in literature do not recommend increa sing his anti-hypertensives on discharge, should follow up with PCP regarding this (4) Hyperlipidemia: Plan: - continue atorvastatin 80 mg hs (5) Tobacco abuse: Plan: - offered nicotine patch, patient declines. (6) Alcohol dependence, daily use: Plan: - reports he consumes a 6 pack daily, last drink 2 days ago, 4. - offered alcohol while here overnight, patient denies. No prior history of alcohol withdrawal however. - recommend decreasing alcohol intake or cessation with physician guidance. Plan: - med/surg. - dvt ppx per primary team - full code. Admission and Anticipated Discharge Date Admission Date: December 21, 2021 Subjective Patient reports doing well. No concerns or questions. No fever or chills. Wishes to be discharged. Review of Systems Review of Systems: All systems reviewed & are unremarkable except as noted in Subjective Physical Exam Constitutional: WD/WN, vitals as above Respiratory: normal respiratory effort, lungs clear to auscultation Cardiovascular: RRR, no murmur, no edema Extremities: normal capillary refill (right toes) Neurologic: Motor/Sensory: + sensory deficit (peripheral neuropathy in toes) Psychiatric: A+Ox3, euthymic affect Results & Data Results & Data ([facility]) Vital Signs (Past 12 Hours) Vital Signs Temp Pulse Pulse Resp BP BP Pulse Ox 12/22/21 11:15 66 172/89 H 12/22/21 11:11 36.9 C 67 16 176/108 H 97 12/22/21 08:07 64 155/87 H 12/22/21 07:52 36.7 C 65 16 175/96 H 95 12/22/21 04:10 36.8 C 68 18 139/78 94 PG Care Time/CCT Total # of Minutes Spent Total Time Spent with Patient: Total time spent is greater than 50% in coordination of care (as documented) at patient's floor/unit and/or counseling patient: Coding Level of Care Code 96730 Subseq Hosp Care Lvl 2 Diagnoses 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
[2021-12-22] MEDS ORDERED: ceFAZolin 2000MG 2,000 MG/15 ML SYR IV ONE (12:00)
[2021-12-22] MEDS ORDERED: MEDICAL MARIJUANA INH PRN (12:15)
--- NOTE | 2022-01-01 16:37 | Discharge Summary ---
Date of Service January 01, 2022 Admission HPI Per Admitting Provider This is a patient who sustained a right ankle trimalleolar ankle fracture approximately 1 year ago. He was instructed to maintain NWB status but he failed to do so. He was later set up for a pantalar fusion with a retrocalcaneal nail but was later canceled because inpatient surgeries were not being performed secondary to Covid admissions at [facility]. The patient then returned to the office with draining wound at the medial malleolus after he continued to walk on the lower leg. An MRI noted bone marrow edema within the medial malleolus at the level of the medial malleolus ulceration. He is now being set up for surgical I & D of the ankle wound. 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 Discharge Exam Constitutional well developed and well nourished; no acute distress ENMT external ear and nose normal, oropharynx normal Neck trachea midline Respiratory normal respiratory effort, lungs clear to auscultation Cardiovascular Rate/Rhythm: regular rate and regular rhythm Gastrointestinal (Abdomen) normal bowel sounds, soft, nontender, no hepatosplenomegaly Musculoskeletal Ankle: + deformity (Valgus right ankle) and + skin erythema (Mild right medial malleolus); no ecchymosis Skin no rashes, warm and dry + ulcer (Right medial ankle) Neurologic normal touch/pain/proprioception Psychiatric A+Ox3, euthymic affect Speech: normal rate/rhythm/volume of speech Lymphatic no cervical or axillary lymphadenopathy Discharge Data Allergies Allergy/AdvReac Type Severity Reaction Status Date / Time No Known Allergies Allergy Verified 12/28/21 10:15 Consultations 12/21/21 17:31 Consult Hospitalist Routine Procedures Performed Operation Date: 12/21/21 13:55 Actual Procedures p Right Ankle Incision and Drainage Medial Ulceration, Saucerization Medial Malleolus with Imlpantation of Stimulan Beads, Excision of Avulsion Fracture of Right Medial Talus(Right) - Davide Loredo DO Hospital Course (1) Closed trimalleolar fracture of right ankle with nonunion: Postop day 1 status post 1. Right ankle irrigation and debridement, medial ankle ulceration, 2.5 cm in diameter x 0.2 cm deep including skin, dermis and subcutaneous tissue. 2. Saucerization of the medial malleolus bone with implantation of antibiotic Stimulan beads 5 mL. 3. Excision of avulsion fracture of the medial talus. PT OT protocols. Limited weightbearing right lower extremity. DVT prophylaxis-aspirin p.o. twice daily, SCDs Pain management as written. DC planning-I have spoken to Josue Velasco PA-C from Dr. Loredo's office today. It is our hope that the patient stays for at least 48 hours to see results of the cultures. There were plans for possible PICC line insertion if needed. However if patient is adamant about leaving and plans to sign out AMA, plans will be in place to send him home on p.o. Bactrim and Keflex with returnin g to the [facility] office early next week and to set up possible PICC line placement. I will discussed with patient in detail and we will see what he decides. Total Time Total Time Spent Total Time Spent (In Minutes): 30 Discharge Plan Discharge Items Patient Disposition: Home - Home Health Services Reason For Visit: Right Ankle Osteomyelitis, Ulcer, Osteoarthritis Discharge Diagnosis: Right ankle non union; Right ankle ulcer ; question osteoarthritis. Activity: Per Instructions section Weightbearing: Right non-weightbearing Weightbearing Comment: No weight on the right foot Non-emergency contact: Surgeon Call non-emergency contact if: your pain is not controlled, your temperature is above 101.5, your wound has increased redness and your wound has increased drainage Follow-up/Referrals: Jojo Mckeon MD [Primary Care Provider] - Davide Loredo DO [Surgeon] - (Follow-up with Dr. Loredo next week for wound check. Call for an appointment.) Diet: Carb Consistent or DM2 Addtl Attending Provider Instructions: ACTIVITY RECOMMENDATIONS: Limitations: No weight bearing to affected limb at all times. SPECIAL CARE INSTRUCTIONS: * Some drainage onto the dressing is normal and is no cause for alarm. * Some swelling is natural especially after walking. * When resting, keep your foot elevated above the level of your heart. * Call [facility] if you notice: -Increased drainage -Fever over 101 degrees F -Severe constant pain BANDAGE: * Leave bandage/cast in place unless otherwise directed. * Keep bandage/cast dry at all times. FOLLOW UP VISIT WITH DR. LOREDO If appointment is not already scheduled: Please call [facility] after you get home today to schedule a follow-up appointment for next week with Dr. Loredo at . Pending Studies at Discharge: No Stand-Alone Forms: My [facility], Smoking Cessation Medications and DC Order Prescriptions: New acetaminophen [Tylenol Extra Strength] 500 mg Tablet 1,000 mg PO Q8 14 Days Qty: 84 RF: 0 aspirin 81 mg Tablet,Delayed Release (Dr/Ec) 81 mg PO BID 30 Days Qty: 60 RF: 0 sulfamethoxazole-trimethoprim [Bactrim DS] 800-160 mg tablet 1 tab PO Q12H Qty: 20 RF: 0 Continued metformin 1,000 mg tablet 500 mg PO BID Qty: 180 RF: 1 cholecalciferol (vitamin D3) 1,250 mcg (50,000 unit) capsule 50,000 unit PO .COMPLEX 90 Days Qty: 24 RF: 0 atorvastatin 80 mg tablet 80 mg PO PM Qty: 90 RF: 1 amitriptyline 25 mg tablet 25 mg PO QPM Qty: 30 RF: 1 meloxicam 7.5 mg tablet 7.5 mg PO BID PRN (Reason: pain) Qty: 180 RF: 1 metoprolol tartrate 50 mg tablet 50 mg PO BID RF: 0 Medical Marijuana 1 dose inhalation DAILY PRN (Reason: Anxiety) RF: 0 No Action metformin 850 mg tablet 850 mg PO BID Qty: 60 RF: 5 Discharge Orders: Discharge Order (Routine); Ordered 12/22/21 Ordered By: Cornel Lozano Admission Data Admit Date/Time: 12/21/21 15:54 Attending Provider: Davide Loredo Admit Provider: Davide Loredo Primary Care Provider: Jojo Mckeon Other Providers: Kamron Kunz ; Monica Yoon ; Fabrizio Del Cid ; Andrea Beasley ; Reagan Piper ; Gary Noriega ; Gildardo Cruz ; Lexus Harmon ; Valerio Rolle ; Cristina De Luna ; Douglas Sol ; Pio Still ; Miranda Foster ; Desi Krishna ; Moreno Lutz ; Monica Almonte ; Jerry Tellez ; Kellen Berumen ; Santosh Tang ; Fabrizio Love ; Roseanne Olivas ; Fern Clement ; Teo Chacko ; Dorie Causey ; Ray Hood ; Joaquín Ga ; Raj Dunn ; Wenceslao Mills ; Shivam Bone Other Interventions: Discharge Summary Assessment (RN) Last Done: 12/22/21 13:54
== END 2021-12-22 15:07 | disposition home health service (06) | DRG 464 ==
LOC: ASU 10:48 → INTOOBSV 15:54 → 3N 15:54

== ENCOUNTER 2022-11-12 09:42 | Observation (INO) ==
--- NOTE | 2022-10-11 14:51 | PAT Medication Instructions ---
Medication Instructions Date of Service October 11, 2022 Home Medications Medication Instructions Recorded metformin 1,000 mg tablet 500 mg PO BID #180 tabs 04/19/22 atorvastatin 80 mg tablet 80 mg PO PM #90 tabs 04/29/22 meloxicam 7.5 mg tablet 7.5 mg PO BID PRN pain #180 tabs 05/15/22 Wheelchair (Manual) (Manual #1 ea 10/10/22 Wheelchair) Wheelchair (Manual) (Manual #1 ea 10/10/22 Wheelchair) Wheeled Walker #1 ea 10/10/22 metoprolol tartrate 50 mg tablet 50 mg PO BID Medical Marijuana 1 dose inhalation DAILY PRN Anxiety metformin 1,000 mg tablet 500 mg PO BID atorvastatin 80 mg tablet 80 mg PO PM meloxicam 7.5 mg tablet 7.5 mg PO BID PRN pain ASK your surgeon for instructions meloxicam 7.5 mg tablet 7.5 mg PO BID PRN pain DO NOT take the morning of surgery Medical Marijuana 1 dose inhalation DAILY PRN Anxiety metformin 1,000 mg tablet 500 mg PO BID Take morning of surgery With a small sip of water, OTHERWISE NOTHING TO EAT OR DRINK AFTER MIDNIGHT: metoprolol tartrate 50 mg tablet 50 mg PO BID Take evening before surgery metoprolol tartrate 50 mg tablet 50 mg PO BID Medical Marijuana 1 dose inhalation DAILY PRN Anxiety (if needed) metformin 1,000 mg tablet 500 mg PO BID atorvastatin 80 mg tablet 80 mg PO PM Other Notes If you have any questions please call us at [phone] or [phone] or [phone] or [phone]
--- NOTE | 2022-10-16 14:08 | Anesthesiology Consultation ---
Date of Service October 16, 2022 Assessment & Plan (1) Encounter for pre-operative examination: Chart Review Chart Review: Acceptable Risk for Surgery and Patient seen in Pre Admission Testing Pt drinks at least six beers daily - Check BSG AM DOS Per PAT appt on 10/16/22, patient denies any recent travel or large group activities. Pt is vaccinated for Covid. Will leave to surgeon's discretion if preop Covid testing needed. Educated on importance of using Covid precautions one week prior to surgery Pt last seen by PCP 10/04/22= patient with history of uncontrolled diabetes, diabetic neuropathy with history of nonunion fracture. Developed an ulceration that became osteomyelitis of the tibia. Has follow-up with infectious disease. Did have recommendation from podiatry for BKA. Referral to orthopedics placed. It is also medically necessary that patient has wheelchair since he will be unable to ambulate after BKA Pt seen by cardio 05/23/22= patient seen for cardiology follow-up. Stable exertional dyspnea attributed to inactivity, deconditioning. Chronic stable cough. Paroxysmal atrial fibrillationnot felt to be candidate for anticoagulation due to medical noncompliance and alcohol abuse. Continue metoprolol. Hypertensioncontrolled. Dyslipidemiacontinue atorvastatin. Chronic alcohol abuse reduction in alcohol use advised. COPDtobacco cessation recommended. Medical noncompliance. Type 2 diabetes as per PCP. Right ankle fracture Novembertatus post dehiscence surgical I&D November 2021 for osteomyelitis. Following with infectious diseasepending surgical intervention this fall, unscheduled. No overt cardiac indications. Right ankle I&D 12/21/21= done under [facility] with LMA #5 (igel) Teaching & Discussion Pre-Anesthesia Teaching/Discussion Notes: Instructed NPO after midnight before surgery,except medications with 15 cc of water. Medication instructions provided according to the PAT guidelines. History Surgery Operation Date: 11/12/22 10:40 Proposed Procedures p Right Below Knee Amputation - Izaiah De Luna MD Height/Weight Height: 5 ft 10 in Weight: 92.8 kg Allergies Allergy/AdvReac Type Severity Reaction Status Date / Time No Known Allergies Allergy Verified 10/10/22 11:31 Medications Home Medications Medication Instructions Recorded Confirmed Last Taken metoprolol tartrate 50 mg tablet 50 mg PO BID 03/29/19 10/10/22 12/21/21 07:00 Medical Marijuana 1 dose inhalation DAILY PRN Anxiety 03/14/21 10/10/22 Unknown metformin 1,000 mg tablet 500 mg PO BID #180 tabs 04/19/22 10/10/22 Unknown atorvastatin 80 mg tablet 80 mg PO PM #90 tabs 04/29/22 10/10/22 Unknown meloxicam 7.5 mg tablet 7.5 mg PO BID PRN pain #180 tabs 05/15/22 10/10/22 Unknown Wheelchair (Manual) (Manual #1 ea 10/10/22 Unknown Wheelchair) Wheelchair (Manual) (Manual #1 ea 10/10/22 10/10/22 Unknown Wheelchair) Wheeled Walker #1 ea 10/10/22 10/10/22 Unknown amitriptyline 25 mg tablet See Rx Instructions .Route .COMPLEX 10/16/22 10/16/22 Unknown Past Medical History Medical History (Updated 10/16/22 @ 15:55 by Chela Mesa PA-C) Alcohol dependence, daily use 6 pack beer per day per patient Anxiety Atrial fibrillation Dx 2014, follows with [facility] cardiology last visit 04/2022 [place] not to be AC candidate due to medical noncompliance and alcohol abuse per cardio records Background diabetic retinopathy associated with type 2 diabetes mellitus BPH (benign prostatic hyperplasia) COPD (chronic obstructive pulmonary disease) Breathing enlarged Diabetes type 2, uncontrolled NIDDM Hgb A1C 6.5 on 10/16/22 Diabetic neuropathy Hyperlipidemia Hypertension Mass of subcutaneous tissue of back stable x several years (right upper side) Osteomyelitis of right tibia Right ankle fracture November 2020- led to osteomyelitis per records Pancreatic mass Stable per pt Personal history of diabetic foot ulcer Right Segmental and somatic dysfunction of upper extremity Temporomandibular joint disorder Right side clicking, no locking Exercise / Class Metabolic Activity III < 4 Walking/Shop/Light housework (one flight of stairs - no chest pain, mild SOB ) Past Family History Family History Grandfather Myocardial infarction Father Diabetes Mother Dementia Brother , GI hemorrhage, age 61 No problems noted. Sister No problems noted. Sister No problems noted. Sister No problems noted. Denies family history of Ovarian cancer Prostate cancer Breast cancer Colorectal cancer Past Surgical History Surgical History History of esophagogastroduodenoscopy (EGD) History of hand surgery CHILD History of tooth extraction Status post laser cataract surgery of both eyes Past Anesthesia History No Hx of Anesthesia Complications and No Family Hx of Anesthesia Complications History of PONV No Hx of PONV and No Hx of Motion Sickness Social History Smoking Status: Current every day smoker tobacco type: cigarettes Smoking cigarettes per day: 1 PPD x 40+ years ADVISED Do You Dip or Chew Tobacco: No Hx Alcohol Use: Yes (6 PCK PER DAY) Alcohol type: beer alcohol intake frequency: 3 or more drinks per day Hx Substance Use: Yes substance use type: marijuana Substance Use Type Other:: medical card prn Last Used Substance Other:: two days ago- ONLY USES WHEN NEEDED, NOT DAILY Review of Systems Cough- chronic cough- stable RAMOS- chronic and stable (cardio aware) Patient denies chest pain, shortness of breath at rest, reflux, cough, wheezing, palpitations. No hx of seizures, stroke, SD, apnea/snoring. No hx of blood clots or blood transfusions Physical Exam Vital Signs VITALS BP 116/69 P 96 TEMP 97.9 SP02 97% RESP 16 Constitutional no acute distress ENMT Mouth: no TMJ clicking Thyromental Distance: > or= 3.5 Finger Breadths (3.5) Mallampati Class: I Missing all teeth Neck + limited neck extension (minimal ) Respiratory normal respiratory effort; no respiratory distress Auscultation: lungs clear to auscultation bilaterally; no wheezes Cardiovascular Rate/Rhythm: regular rate and regular rhythm Heart Sounds: no murmur Vessels: no carotid bruit Musculoskeletal Spine: + pain with cervical ROM Extremities: extremities normal to inspection Psychiatric Orientation: alert Lab Results Anesthesia Preop Results Results Anesthesia Widget: WBC 5.20 K/ul (4.8-10.8) 10/16/22 Hgb 14.9 g/dl (14.0-18.0) 10/16/22 Hct 40.5 % (42.0-52.0) L 10/16/22 Plt 216 K/uL (130-400) 10/16/22 Na 129 mmol/L (136-145) L 10/16/22 K 4.3 mmol/L (3.5-5.1) 10/16/22 Cl 94 mmol/L (98-107) L 10/16/22 CO2 27 mmol/L (21-32) 10/16/22 BUN 12 mg/dl (6-23) 10/16/22 Creat 1.18 mg/dl (0.6-1.4) 10/16/22 Glucose Level 198 mg/dl (70-99(Fasting)) H 10/16/22 PT 11.9 Seconds (9.0-12.0) 10/16/22 PTT 28.2 Seconds (21.0-31.0) 10/16/22 INR 1.1 (0.9-1.1) 10/16/22 HA1c 6.5 % (4.5-5.6) H 10/16/22 Blood Type O Positive 10/16/22 Antibody Screen NEGATIVE 10/16/22 Testing Laboratory Results Hyponatremia - chronic - Na has fluctuated from 127-133 since 2017- discussed with Dr. yNe- patient can proceed as scheduled Electrocardiogram Date: 10/16/22 Findings: + NSR @ (91bpm ) Right atrial enlargement When compared to EKG from January 04, 2016- no significant change was found per cardio Chest X-Ray Date: 10/16/22 Findings: + NAD Echocardiogram Date: 01/04/21 EF: 55-59% LV Function: normal RWMA: + none Other Findings: + LVH (Mild/concentric) Valvular Disease: + no significant valvular disease Stress Test Date: 12/06/21 Type: nuclear Lexiscan myocardial perfusion imaging study is normal with no evidence of scar or inducible ischemia Stress EKG is negative for ischemia Gated SPECT imaging reveals normal myocardial thickening and wall motion LVEF was calculated to be >70% COVID-19 Risk Screen Screening Information COVID-19 Screen Date: 10/16/22 Exposure 21 Days Family/Household +COVID Last 21 Days: No Exposure 10 Days Any COVID Exposure Last 10 Days: No Symptoms Last 10 Days Experienced COVID Sx Last 10 Days: No + COVID 0-90 Days COVID + in Last 0-90 Days: No Risk Plan COVID Risk Plan: No Risk Identified Patient Education COVID Preop Screening Education Complete: Yes
--- NOTE | 2022-11-08 18:47 | History and Physical Report ---
CHIEF COMPLAINT: Right ankle pain, deformity and discomfort. HISTORY OF PRESENT ILLNESS: The patient is a 62-year-old long-term diabetic who presents for surgica l amputation of his right leg. He stated ankle fracture about 2 years ago but never had it treated. He had trimalleolar ankle fracture subluxation/dislocation. He has had persistent pain and discomfo rt and deformity of his symptoms. He has developed wound over the medial side of his ankle area. He does continue to walk on this. It does hurt. He has got intermittent drainage. He has had several consultations and he has now elected to proceed with surgical management amputation. There is reall y no way to salvage the situation. PAST MEDICAL HISTORY: 1. History of diabetes. 2. Atrial fibrillation. 3. COPD. 4. Elevated cholesterol. 5. Hypertension. 6. Pancreatic mass. 7. Chronic alcohol use. 8. TMJ disorder. PAST SURGICAL HISTORY: Includes: 1. EGD. 2. Hand surgery. 3. Oral surgery. 4. Cataract surgery. ALLERGIES: None. CURRENT MEDICATIONS: 1. Atorvastatin. 2. Medical marijuana. 3. Meloxicam. 4. Metformin. 5. Metoprolol. SOCIAL HISTORY: A 62-year-old male. Lives by himself. He drinks 6 beers at least a day. FAMILY HISTORY: Noncontributory. REVIEW OF SYSTEMS: Significant for alcohol abuse. He is a long-term diabetic. Denies any shortness of breath or DVT or PE. PHYSICAL EXAMINATION: GENERAL: Shows a relatively pleasant, poorly kempt middle-aged male. HEENT: Benign. NECK: Supple with no lymphadenopathy. LUNGS: Clear to auscultation. HEART: Regular rate and rhythm. ABDOMEN: Soft, nontender, nondistended. EXTREMITIES: Grossly neurovascularly intact except as follows. Examination of the right leg and foot reveals an obvious deformity to his ankle. He has got severe v algus deformity with prominence over the medial malleolus area with an open wound. He has got chroni c venous changes. There is drainage coming out of the medial wound. He can flex and extend his toes slightly. He has got fairly good hair ____ leg. He has got decreased sensation globally. X-RAYS: Previous x-rays reveal chronic right ankle fracture dislocation. ASSESSMENT: A 62-year-old male with multiple medical comorbidities including diabetes, alcohol abuse , atrial fibrillation, COPD, elevated cholesterol, hypertension with right chronic ankle fracture dis location with an open wound with chronic low level infection. There is really no salvage to the situ ation. The best treatment is a below-knee amputation. PLAN: We talked about treatment. He would like to proceed with a below-knee amputation. He would b e a good candidate for a prosthesis once his wound is healed. The risks and benefits of this procedu re were explained including but not limited to DVT, PE, , infection, neurological injury, vascul ar injury, bleeding problem, pain, limited range of motion, stiffness, persistent pain, wound to heal , need for further surgery. The patient understands and desires to proceed. Informed consent was ob tained. We did talk to him about holding his meloxicam and metformin before surgery and taking his metoprolol on the morning of surgery. He does live by himself. He will need DVT prophylaxis in the hospital d ue to his alcohol abuse. We will see him back 2 weeks postop. Job ID: [id number]
[~2022-11-12 09:42] MED LIST changes: +ACETAMINOPHEN 500 MG TAB PO SCH; -LACTATED RINGER'S 1,000 ML IV SCH; +LR 15ML/HR IV SCH; +LR 60ML/HR IV SCH; +ROPIVACAINE 0.5% 5 MG/ML 30 ML VIAL ONE; +TRANEXAMIC ACID 1,000 MG **IV Pre-op IV SCH
--- NOTE | 2022-11-12 11:06 | History & Physical Bridge Note ---
Date of Service November 12, 2022 History & Physical Bridge Note I have examined the patient, reviewed the History & Physical and in the interval since the performance of the History & Physical I have noted the following changes of clinical significance: no changes noted
[2022-11-12] MEDS ORDERED: ROPIVACAINE 0.5% 5 MG/ML 30 ML VIAL ONE (11:20)
[2022-11-12] MEDS ORDERED: HYDROmorphone INJ 1 MG/ML SYRINGE IV PRN (11:54)
[2022-11-12] MEDS ORDERED: ATROPINE SULFATE 0.1 MG/ML 10ML SYR IV PRN (11:54)
[2022-11-12] MEDS ORDERED: ONDANSETRON INJ 2 MG/ML 2 ML VIAL IV PRN ×2 (11:54→16:59)
[2022-11-12] MEDS ORDERED: fentaNYL citrate PF 100 MCG/2 ML VIAL IV PRN (11:54)
[2022-11-12] MEDS ORDERED: ePHEDrine sulfate 50 MG/ML AMP IV PRN (11:54)
[2022-11-12] MEDS ORDERED: MIDAZOLAM HCL 1 MG/ML 2ML VIAL ONE ×2 (12:48→13:28)
[2022-11-12] MEDS ORDERED: BUPIVACAINE/EPINEPHRINE 0.5% MPF 1:200,000 30 ML VIAL ONE (13:17)
[2022-11-12] MEDS ORDERED: PROPOFOL IV EMULSION 10 MG/ML 20 ML VIAL IV ONE (13:27)
[2022-11-12] MEDS ORDERED: LIDOCAINE 2% 20 MG/ML 5 ML SYR IV ONE (13:27)
[2022-11-12] MEDS ORDERED: KETAMINE 50 MG/5 ML SYRINGE ONE (13:28)
[2022-11-12] MEDS ORDERED: fentaNYL citrate PF 100 MCG/2 ML VIAL ONE (13:28)
[2022-11-12] MEDS ORDERED: ePHEDrine sulfate 50 MG/ML AMP ONE (14:53)
[2022-11-12] MEDS ORDERED: DEXAMETHASONE SOD INJ 4 MG/ML VIAL ONE (14:57)
[2022-11-12] MEDS ORDERED: ONDANSETRON INJ 2 MG/ML 2 ML VIAL ONE (14:57)
[2022-11-12] MEDS ORDERED: chlordiazePOXIDE HCl 25 MG CAP PO PRN (15:27)
[2022-11-12] MEDS ORDERED: LABETALOL HCL IV 5 MG/ML 20ML IV STA ×2 (15:31→17:17)
[2022-11-12] MEDS ORDERED: CEROVITE ADV FORMULA TAB PO STA (15:32)
[2022-11-12] MEDS ORDERED: LABETALOL HCL IV 5 MG/ML 20ML IV ONE (15:34)
--- NOTE | 2022-11-12 15:34 | Operative Report ---
PG Post Operative Report Pre & Post Diagnosis Operation Date: 11/12/22 12:30 Pre-Op Diagnosis: Chronically infected right ankle malunion with osteomyelitis Post-Op Diagnosis: Chronically infected right ankle malunion with osteomyelitis I identified the patient and participated in the time-out.: Yes Procedure Operation Date: 11/12/22 12:30 Actual Procedures p Right Below Knee Amputation(Right) - Izaiah De Luna MD Surgeon Izaiah De Luna MD Bag Tester Guilherme Gonzalez PA-C Estimated Blood Loss 100 Findings Consistent with Post-Op Diagnosis Operative findings revealed markedly deformed right ankle with open medial ulcer with chronic infection distally. Blood supply of the limb seemed appropriate and adequate. Specimens Right leg sent for pathology Anesthesia Type General Regional Complications none Disposition Accompanied Patient To Recovery: No Indications Patient is a 62-year-old gentleman with multiple medical comorbidities including significantly poorly managed diabetes and alcohol use who injured his ankle 2 years ago. He was treated nonoperatively and really basically just never sought care. He developed a chronic malunion of his ankle which eventually resulted in open wounds and infection. He failed all conservative measures and additional measures including the surgical treatment and elected proceed with right below- knee amputation. Description of Procedure The patient was taken the operating, identified, placed on the operating table supine position protectors were properly padded. IV antibiotics tried by anesthesia team. A general anesthetic was implemented. Some regional blocks were provided in the holding area. A right thigh tent was then placed. The right lower extremities and scrubbed with Hibiclens, prepped with ChloraPrep and draped in usual sterile fashion. The right leg was elevated exsanguinated with use of an Esmarch and the tourniquet was placed at 300 mmHg. A modified fishmouth type incision was made with a short anterior flap and a a longer distal posterior flap. Sharp dissection was carried through subcutaneous tissues directly down the fascia. Full-thickness flaps fascia envelope was developed and elevated over the proximal tibia for about 2 cm. The anterior compartment musculature was divided and transected and allowed to retract. The anterior tibial vessels were identified, suture ligated and cauterized. The deep peroneal nerve was cut and allowed to retract. The posterior incision was then made directly through the fascia and through the gastroc. The tibia was then cut at about the 14 cm distal to the knee joint. The fibula was cut about a centimeter proximal to this. The leg was then flexed and the posterior musculature was dissected off the back of the leg. The posterior tibial vessels were identified, suture- ligated and then cauterized. The tibial nerve was identified. It was traction was applied and it was cut and allowed to retract. The leg was then released from the distal thigh and upper leg and then passed off and sent for pathology. Hemostasis assured use the elective cautery. We did beveled the tibia to a prevent bony prominences. We then irrigated the wound extensively. We did inject locally with 30 cc of half percent Marcaine with epinephrine. The tourniquet was let down for final tourniquet time 27 minutes. Hemostasis assured use electrocautery. The fascia was then closed with 0 Vicryl suture in a [id number] fashion for subcutaneous tissues then closed with 2 Dexon suture in a buried fashion skin was closed with 3-0 nylon suture in simple fashion. Leg was then cleaned and dried and sterile dressed with Xeroform, 4 x 4's, sterile Kerlix wrap, Marino bandage were applied. Patient then brought out of general anesthesia and transferred to the recovery in stable condition. Patient tolerated procedure well and there were no complications. Guilherme Gonzalez, my physician social service assistant, was present for the entire procedure. His assistance was required for proper patient positioning, prepping and draping, surgical exposure, retraction, perform the technical details of the operation, closure of the wound and placement of the sterile bandage. I attest to the content of the Intraoperative Record and any orders documented therein. Any exceptions are noted below.
[2022-11-12] MEDS ORDERED: THIAMINE HCL 100 MG, FOLIC ACID 1 MG in SODIUM CHLORIDE 0.9% 1000ML 1,000 ML IV STA (15:36)
--- NOTE | 2022-11-12 16:10 | Anesthesiology Progress Note ---
Date of Service November 12, 2022 Anesthesia Post Procedure Vital Signs Vital Signs: Temp Pulse Pulse Resp BP Pulse Ox O2 Del Method 11/12/22 15:40 75 14 156/112 H 95 Room Air 11/12/22 16:00 69 14 164/88 H 93 Room Air 11/12/22 15:50 73 16 157/96 H 94 Room Air 11/12/22 15:30 84 16 192/97 H 100 Oxymask 11/12/22 15: 36.0 C L 89 22 135/82 99 Oxymask 11/12/22 10:10 36.4 C L 102 H 18 189/133 H 97 Room Air O2 Flow Rate 11/12/22 15:40 11/12/22 16:00 11/12/22 15:50 11/12/22 15:30 10 11/12/22 15:23 10 11/12/22 10:10 Transfer of Care Handoff Completed per policy Notes Mental Status: alert / awake / arousable and participated in evaluation Patient Amnestic to Procedure: Yes Nausea / Vomiting: adequately controlled Pain: adequately controlled Airway Patency, RR, SpO2: stable & adequate BP & HR: stable & adequate Hydration State: stable & adequate Anesthetic Complications: no major complications apparent and Pt Satisfied with anesthetic care
[2022-11-12] MEDS ORDERED: NALOXONE HCL 0.4 MG/1 ML VIAL/CARP IV PRN (16:59)
[2022-11-12] MEDS ORDERED: MAGNESIUM HYDROXIDE SUSP 30 ML UDC PO PRN (16:59)
[2022-11-12] MEDS ORDERED: GLUCOSE 40% GEL 15 GM TUBE PO PRN (16:59)
[2022-11-12] MEDS ORDERED: METOCLOPRAMIDE HCL INJ 5 MG/ML 2 ML VIAL IV PRN (16:59)
[2022-11-12] MEDS ORDERED: ALUMINUM/MAGNESIUM SUSP 30 ML UDC PO PRN (16:59)
[2022-11-12] MEDS ORDERED: oxyCODONE HCL IR 5 MG TAB (IMMEDIATE RELEASE) PO PRN (16:59)
[2022-11-12] MEDS ORDERED: DEXTROSE 50% 50 ML SYRINGE IV PRN (16:59)
[2022-11-12] MEDS ORDERED: GLUCOSE 10 TAB/TUBE PO PRN (16:59)
[2022-11-12] MEDS ORDERED: TAMSULOSIN HCL 0.4 MG CAP PO PRN (16:59)
[2022-11-12] MEDS ORDERED: bisacodyL 10 MG SUPP PR PRN (16:59)
[2022-11-12] MEDS ORDERED: PHARMACY GLYCEMIC MGMT CONSULT PRN ×2 (16:59)
[2022-11-12] MEDS ORDERED: diphenhydrAMINE Capsule 25 MG CAP PO PRN (16:59)
[2022-11-12] MEDS ORDERED: CARBOHYDRATES FOR HYPOGLYCEMIA PO PRN (16:59)
[2022-11-12] MEDS ORDERED: GLUCAGON FOR INJ 1 MG VIAL SQ PRN (16:59)
[2022-11-12] MEDS ORDERED: HYDROmorphone INJ 0.5 MG/0.5 ML SYR IV PRN (16:59)
[2022-11-12] MEDS: KETOROLAC 30 MG/ML VIAL IV SCH ×2 (18:35→22:54)
[2022-11-12] MEDS: SODIUM CHLORIDE 0.9% 1000ML 1,000 ML IV SCH (18:35)
[2022-11-12] MEDS: INSULIN ASPART PER UNIT CHARGE SC SCH ×2 (18:38→21:27)
[2022-11-12] MEDS: ASCORBIC ACID 500 MG TAB PO SCH (18:49)
--- NOTE | 2022-11-12 19:25 | Hospitalist Consultation ---
Date of Consultation November 12, 2022 Assessment & Plan (1) Alcohol dependence, daily use: 62 y/o male w/ PmHx HTN, T2DM w/ diabetic neuropathy, BPH, A. fib w/ RVR, Thiamine deficiency, vit D deficiency, osteomyelitis of R tibia, COPD, HLD, arthritis, anxiety admitted for R BKA surgery. Alcohol dependence: -Patient states sometimes with 6 pack per day, sometimes not. -Last drink 3-4 days ago, had wanted to keep sober for procedure. -Has Librium q8h PRN for alcohol withdrawal symptoms ordered already. -3-4 days out from last drink, likely out of withdrawal period. -Okay to monitor for symptoms, no need for AWSS at this time. -Continue thiamine 100mg qAM T2DM w/ neuropathy and diabetic retinopathy: -More controlled over last year. -Pharmacy glycemic consult in place. -Continue home amitriptyline for neuropathy. Can hold meloxicam in setting of recent surgery. A. Fib w/ RVR: -Rates remain well controlled. -Continue Metoprolol 50mg BID. HTN: -Continue home metoprolol 50mg BID. HLD: -Cont home atorvastatin 80mg daily. Tobacco use: -patient reports sometimes uses 1 pack per day other days doesn't use at all. -Offered nicotine patch however patient declined at this time. BPH: -No home medications, can add flomax if symptomatic while in hospital. Anxiety: -No home medications, can give PRN hydroxyzine if overly anxious while in hospital. Vitamin D deficiency: -No home medication supplement noted, can readdress as outpatient. DVT prophylaxis: Per surgical team. F/E/N/GI: progress as tolerated. Added famotidine in AM while in hospital. Dispo: Med/surg Code status: Full code. (2) Background diabetic retinopathy associated with type 2 diabetes mellitus: (3) Diabetes type 2, uncontrolled: (4) Personal history of diabetic foot ulcer: (5) Hyperlipidemia: (6) COPD (chronic obstructive pulmonary disease): (7) Anxiety: (8) Osteomyelitis of right tibia: (9) Vitamin D deficiency: (10) Thiamine deficiency: (11) Atrial fibrillation with RVR: (12) HTN (hypertension): (13) Tobacco abuse: (14) BPH (benign prostatic hyperplasia): Supervising Physician Co-Signing Physician Notes Patient seen and examined, chart reviewed, case discussed with Dr. Larsen and I agree with the assessment and plan as documented above. In brief, patient is a 62-year-old male with history of anxiety, atrial fibrillation, COPD, diabetes, hypertension, hyperlipidemia presenting with chronically infected right ankle malunion with osteomyelitis. Patient had a right below-knee amputation performed by Dr. De Luna today 11/12/2022.The surgery was performed under general regional anesthesia. Estimated blood loss 100 mL. Well-tolerated with no immediate complications identified. Patient seen in his room postoperatively. Doing well. States the pain is well controlled. On exam patient is resting comfortably, Afebrile, hemodynamically stable,no acute distress HEENT - NC/AT, MMM, Neck supple Heart - +S1/S2, regular, no m/r/g Lungs - CTA Abd - +BS, soft, NT/ND Ext - s/p BKA RIGHT - dressing in place, c/d/i Labs and images reviewed Assessment/Plan -Patient reports drinking a sixpack of beer per day. Is not concerned for withdrawal. Librium every 8 hours as needed ordered per primary team. We will continue to monitor for evidence of alcohol withdrawal Diabetesoverall more controlled. Glycemic consult placed by primary team Atrial fibrillationrate controlled, no anticoagulation. Patient on metoprolol. We will continue Remainder of plan as above History of Present Illness Reason for Consultation: Routine Post-op Medical tx + DT Prophylaxis Requesting Physician: Dr. Izaiah De Luna Attending Physician: Izaiah De Luna MD History of Present Illness Willie is a 62 year old male w/ PmHx HTN, T2DM w/ diabetic neuropathy, BPH, A. fib w/ RVR, Thiamine deficiency, vit D deficiency, osteomyelitis of R tibia, COPD, HLD, arthritis, anxiety admitted for BKA of R leg. Patient has a history of poorly controlled diabetes mellitus with last A1c in September 6.5 down from 9.8 the previous year. He developed R leg ulceration that transformed into osteomyelitis of the tibia and had been following with Dr. Snyder for infectious disease. Podiatry recommended BKA and so patient underwent R BKA today without complication. Patient seen at the bedside without complaints, just has worry about how he will get around at home with the R BKA. Allergies Allergy/AdvReac Type Severity Reaction Status Date / Time No Known Allergies Allergy Verified 11/12/22 10:02 Home Medications Medication Instructions Recorded Confirmed Type metoprolol tartrate 50 mg tablet 50 mg PO BID 03/29/19 11/12/22 History Medical Marijuana 1 dose inhalation DAILY PRN Anxiety 03/14/21 11/12/22 History metformin 1,000 mg tablet 500 mg PO BID #180 tabs 04/19/22 11/12/22 Rx meloxicam 7.5 mg tablet 7.5 mg PO BID PRN pain #180 tabs 05/15/22 11/12/22 Rx Wheelchair (Manual) (Manual #1 ea 10/10/22 Rx Wheelchair) Wheelchair (Manual) (Manual #1 ea 10/10/22 10/10/22 Rx Wheelchair) Wheeled Walker #1 ea 10/10/22 10/10/22 Rx amitriptyline 25 mg tablet See Rx Instructions .Route .COMPLEX 10/16/22 11/12/22 History atorvastatin 80 mg tablet 80 mg PO PM #90 tabs 11/02/22 11/12/22 Rx Patient History Medical History (Updated 10/16/22 @ 15:55 by Chela Mesa PA-C) Alcohol dependence, daily use 6 pack beer per day per patient Anxiety Atrial fibrillation Dx 2014, follows with [facility] cardiology last visit 04/2022 [place] not to be AC candidate due to medical noncompliance and alcohol abuse per cardio records Background diabetic retinopathy associated with type 2 diabetes mellitus BPH (benign prostatic hyperplasia) COPD (chronic obstructive pulmonary disease) Breathing enlarged Diabetes type 2, uncontrolled NIDDM Hgb A1C 6.5 on 10/16/22 Diabetic neuropathy Hyperlipidemia Hypertension Mass of subcutaneous tissue of back stable x several years (right upper side) Osteomyelitis of right tibia Right ankle fracture November 2020- led to osteomyelitis per records Pancreatic mass Stable per pt Personal history of diabetic foot ulcer Right Segmental and somatic dysfunction of upper extremity Temporomandibular joint disorder Right side clicking, no locking Surgical History History of esophagogastroduodenoscopy (EGD) History of hand surgery CHILD History of tooth extraction Status post laser cataract surgery of both eyes Family History Grandfather Myocardial infarction Father Diabetes Mother Dementia Brother , GI hemorrhage, age 61 No problems noted. Sister No problems noted. Sister No problems noted. Sister No problems noted. Denies family history of Ovarian cancer Prostate cancer Breast cancer Colorectal cancer Social History Smoking Status: Current every day smoker Tobacco Type: Cigarettes Age Started Using Tobacco: 19; packs per day: 1; Cigarettes Per Day: 1 PPD x 40+ years ADVISED; Second Hand Exposure: No; Do You Dip or Chew Tobacco: No; Tobacco Cessation Education Requested by Patient: No Hx Alcohol Use: Yes (6 PCK PER DAY) Alcohol type: beer Alcohol type Comment: 6 PACK DAILY PER PT Hx Substance Use: Yes Last Used Substance Other:: two days ago- ONLY USES WHEN NEEDED, NOT DAILY Substance Use Type Other:: medical card prn Preferred Language: Albanian Communication Ability: Effective Visual Impairment: No Limitations Hearing Ability: Normal Machine Clothing Worker Required: No Beliefs That Will Affect Care: None marital status: Single Current Living Situation: Alone Current Living Situation Comment: states has no one to help current occupational status: employed current occupation: [employer] Feels Safe at Home: Yes Safety Concerns: Feels Safe At This Time Childhood Exposure to Second-Hand Smoke: No caffeine: No during the past year weight has: remained stable Dental Care, Regularly: No Physical Activity Frequency: Does not Exercise Seatbelt Use: always Sunscreen Use: No Assistive Devices: Wheelchair Review of Systems Review of Systems: As per HPI. Physical Exam Constitutional: WD/WN, vitals as above Eyes: PERRL, conjunctivae normal, anicteric sclerae Respiratory: normal respiratory effort, lungs clear to auscultation Cardiovascular: Rate/Rhythm: + irregularly irregular Heart Sounds: normal S1 and normal S2 Gastrointestinal (Abdomen): normal bowel sounds, soft, nontender, no hepatosplenomegaly Skin: R BKA visualized with no abnormalities to wrapping, no erythema or swelling to skin above. Psychiatric: A+Ox3, euthymic affect Results & Data Results & Data Vital Signs (Past 12 Hours) Vital Signs Temp Pulse Pulse Resp BP Pulse Ox O2 Del Method 11/12/22 18:40 36.3 C L 79 20 196/94 H 97 Room Air 11/12/22 18:12 36.6 C 70 16 175/92 H 97 Room Air 11/12/22 17:40 69 15 161/91 H 95 Room Air 11/12/22 17:10 69 16 180/94 H 96 Room Air 11/12/22 16:55 69 14 169/90 H 96 Room Air 11/12/22 16:40 70 15 174/89 H 96 Room Air 11/12/22 16:25 69 15 169/90 H 95 Room Air 11/12/22 15:40 75 14 156/112 H 95 Room Air 11/12/22 16:10 36.6 C 71 14 165/95 H 95 Room Air 11/12/22 16:00 69 14 164/88 H 93 Room Air 11/12/22 15:50 73 16 157/96 H 94 Room Air 11/12/22 15:30 84 16 192/97 H 100 Oxymask 11/12/22 15:23 36.0 C L 89 22 135/82 99 Oxymask 11/12/22 10:10 36.4 C L 102 H 18 189/133 H 97 Room Air O2 Flow Rate 11/12/22 18:40 11/12/22 18:12 11/12/22 17:40 11/12/22 17:10 11/12/22 16:55 11/12/22 16:40 11/12/22 16:25 11/12/22 15:40 11/12/22 16:10 11/12/22 16:00 11/12/22 15:50 11/12/22 15:30 10 11/12/22 15:23 10 11/12/22 10:10 Resident Activity Tracking Resident Involvement: Resident Care Provided Care Provided: Adult Hospital Medicine
[2022-11-12] MEDS: ATORVASTATIN 40 MG TAB PO SCH (20:27)
[2022-11-12] MEDS: METOPROLOL TARTRATE 50 MG TAB PO SCH (20:27)
[2022-11-12] MEDS: ASPIRIN 81 MG ECTAB PO SCH (20:28)
[2022-11-12] MEDS: SENNA 8.6 MG TAB PO SCH (20:28)
[2022-11-12] MEDS: DOCUSATE SODIUM 100 MG CAP PO SCH (20:28)
[2022-11-12] MEDS: ceFAZolin 2000MG 2,000 MG/15 ML SYR IV SCH (20:29)
[2022-11-12] MEDS ORDERED: LANTUS PER UNIT CHARGE SC STA (20:59)
[2022-11-12] MEDS: ACETAMINOPHEN 500 MG TAB PO SCH (21:28)
[2022-11-12] MEDS ORDERED: TRANEXAMIC ACID / 0.7% NACL 1,000 MG/100 ML BAG IV SCH (21:30)
[2022-11-12] MEDS: AMITRIPTYLINE HCL 25 MG TAB PO SCH (22:52)
[2022-11-13] MEDS: INSULIN ASPART PER UNIT CHARGE SC SCH ×6 (00:30→21:06)
--- NOTE | 2022-11-13 03:26 | Billing Data ---
Date of Service November 12, 2022 Coding Level of Care Code 88134 IN/OBS CONSULT LVL 3,45M
[2022-11-13] MEDS: SODIUM CHLORIDE 0.9% 1000ML 1,000 ML IV SCH (04:20)
[2022-11-13] MEDS: ceFAZolin 2000MG 2,000 MG/15 ML SYR IV SCH (05:08)
[2022-11-13] MEDS: KETOROLAC 30 MG/ML VIAL IV SCH ×4 (05:08→21:17)
[2022-11-13] MEDS: ACETAMINOPHEN 500 MG TAB PO SCH ×3 (05:08→21:17)
[2022-11-13] MEDS: ASPIRIN 81 MG ECTAB PO SCH ×2 (08:09→21:15)
[2022-11-13] MEDS: THIAMINE HCL 100 MG TAB PO SCH (08:09)
[2022-11-13] MEDS: DOCUSATE SODIUM 100 MG CAP PO SCH ×2 (08:09→21:17)
[2022-11-13] MEDS: MULTIVITAMIN TAB PO SCH (08:10)
[2022-11-13] MEDS: ASCORBIC ACID 500 MG TAB PO SCH ×2 (08:10→16:59)
[2022-11-13] MEDS: FOLIC ACID 1 MG TAB PO SCH (08:10)
[2022-11-13] MEDS: METOPROLOL TARTRATE 50 MG TAB PO SCH ×2 (08:18→21:15)
--- NOTE | 2022-11-13 08:44 | Hospitalist Progress Note ---
Date of Service November 13, 2022 Assessment & Plan (1) Osteomyelitis of right tibia: Plan: 62 y/o male w/ PmHx HTN, T2DM w/ diabetic neuropathy, BPH, A. fib w/ RVR, Thiamine deficiency, vit D deficiency, osteomyelitis of R tibia, COPD, HLD, arthritis, anxiety admitted for R BKA surgery. POD# 1 s/p Right Below Knee Amputation(Right) - Izaiah De Luna MD EBL 100cc WBC elevation likely combination stress/surgery/steroids, afebrile. Hgb 14.9--> 12.2, acute blood loss anemia from surgery as well as dilutional from IVF Pain management/bowel regimen/PT/OT per primvary service DVT proph : asa 81mg BID ordered. Added famotidine 40mg daily and rec continuing this at d/c for GI prophylaxis given alcohol use. Also rec cessation from such, as has been several days from last drink without issue at present Checked mag given hx possible paroxysmal afib -- 1.3, IV replacement ordered Monitor labs on repeat if remains inpatient however patient hoping to go home/drive. Given BKA, unclear if modifications to car/safety. Awaiting PT evals -- dispo per primary service (2) Alcohol dependence, daily use: Plan: Prior drinking 6pk daily, last drink 3-4 days ago reported as wanted to be sober for procedure Continue to rec cessation Librium Q8H prn ordered by prior service, can continue Continue thiamine daily Rec continuing B12/thiamine/folate at discharge daily given prior lows, can f/u PCP for repeat testing if needed outpatient Na 131, however appears chronic lows. Not on any medications for hypothyroidism, was normal on last check. can repeat w/ PCP outpatient. If remains low, consider further testing w/ urine sodium/osm studies/CT chest to r/o lung malignancy/etc (3) Atrial fibrillation with RVR: Plan: A. Fib w/ RVR Remains in sinus currently on exam -- ?if from prior etoh use. EKG on pre-op testing also w/ NSR. No palpitations reported at present. Has not been drinking recently, denied recent palpitations but does note in time of increased stress/anxiety he does have palpitations Continues on metoprolol 50mg BID CHADsVASC score 3 for HTN, DM, peripheral vascular disease --> Recommend f/u PCP/consideration for holter/event to see how frequent/cessation of alcohol/discussed increased risk of stroke for underlying afib not on anticoagulation. On aspirin 81mg BID in meantime for DVT prophylaxis as above. Famotidine 40mg daily added for GI proph -- consider sending at d/c Checked mag -- 1.3, IV replacement ordered. Would f/u outpatient if issues w/ continued palpitations/consideration for daily mag oxide. (4) HTN (hypertension): Plan: HTN: Continue home metoprolol 50mg BID. (5) Hyperlipidemia: Plan: HLD: -Cont home atorvastatin 80mg daily. (6) Diabetes type 2, uncontrolled: Plan: T2DM w/ neuropathy and diabetic retinopathy: -More controlled over last year. -Pharmacy glycemic consult in place. -Continue home amitriptyline for neuropathy. Can hold meloxicam in setting of recent surgery. (7) Background diabetic retinopathy associated with type 2 diabetes mellitus: (8) Personal history of diabetic foot ulcer: (9) COPD (chronic obstructive pulmonary disease): Plan: not on any home inhalers, on room air at present Tobacco use: Patient reports sometimes uses 1 pack per day other days doesn't use at all. Offered nicotine patch however patient declined at this time. Cessation recommended (10) Anxiety: (11) Vitamin D deficiency: (12) Thiamine deficiency: (13) Tobacco abuse: (14) BPH (benign prostatic hyperplasia): Plan: BPH: -No home medications, can add flomax if symptomatic while in hospital. Anxiety: -No home medications, can give PRN hydroxyzine if overly anxious while in hospital. Vitamin D deficiency: -No home medication supplement noted, can readdress as outpatient. Plan Thank you for allowing hospitalist service to participate in the care of Mr Lind. Will follow along if remains inpatient vs rehab. Please call with any questions/concerns. Admission and Anticipated Discharge Date Admission Date: November 12, 2022 Supervising Physician Co-Signing Physician Notes The patient was not seen by me. The chart was reviewed. Case discussed with SUNG Wolff. Agree with assessment and plan Subjective eval this morning, doing well, up in the chair. pain controlled, not wanting anything currently as he is hopeful to go home. seen by OT but not PT. He is planning to drive himself home today -- dispo per ortho when seen if vehicle w/ modifications/etc. He denies any fever/chills, chest pain, shortness of breath, abdominal pain. Passing gas. No lightheaded/dizziness. Regarding history of afib, he notes palpitations in the past, depending on stress/anxiety/alcohol use. Currently without any palpitations/shortness of breath/etc. Rec f/u PCP about possible holter/etc/increased risk stroke w/ afib. Also cessation from alcohol. Physical Exam Constitutional: WD/WN, vitals as above Eyes: PERRL, conjunctivae normal, anicteric sclerae Respiratory: normal respiratory effort, lungs clear to auscultation Cardiovascular: Rate/Rhythm: regular rate and regular rhythm Heart Sounds: normal S1 and normal S2 Gastrointestinal (Abdomen): normal bowel sounds, soft, nontender, no hepatosplenomegaly Skin: R BKA visualized with no abnormalities to wrapping, no erythema or swelling to skin above. Psychiatric: A+Ox3, euthymic affect Results & Data Results & Data Vital Signs (Past 12 Hours) Vital Signs Temp Pulse Pulse Resp BP Pulse Ox O2 Del Method 11/13/22 07:28 36.6 C 70 16 144/78 H 95 Room Air 11/13/22 04:09 36.6 C 76 16 129/76 97 Room Air 11/12/22 21:24 36.9 C 86 18 156/83 H 96 Room Air 11/12/22 22:56 36.8 C 75 16 145/78 H 94 Room Air Laboratory Results 11/13/22 11/13/22 11/13/22 Range/Units 08:13 08:07 08:07 WBC (4.8-10.8) K/ul RBC (4.70-6.10) M/uL Hgb (14.0-18.0) g/dl Hct (42.0-52.0) % MCV (80.0-100.0) fL MCH (25.0-34.0) pg MCHC (32.0-36.0) g/dL RDW Std Deviation (36.4-46.3) fL RDW Coeff of Phoebe (11.5-14.5) % Plt Count (130-400) K/uL MPV (9.4-12.4) fL Sodium 131 L (136-145) mmol/L Potassium 4.2 (3.5-5.1) mmol/L Chloride 100 (98-107) mmol/L Carbon Dioxide 24 (21-32) mmol/L Anion Gap 7 (3-11) BUN 16 (6-23) mg/dl Creatinine 1.22 (0.6-1.4) mg/dl Est Cr Clr Drug Dosing 72.2 ml/min Est GFR ( Amer) 73.7 ml/min Est GFR (Non-Af Amer) 63.6 ml/min BUN/Creatinine Ratio 13.1 (10-20) Glucose 114 H (70-99(Fasting)) mg/dl POC Glucose 120 H (70-99) mg/dl Calcium 8.3 L (8.6-10.3) mg/dl Magnesium 1.3 L (1.7-2.4) mg/dl Hepatitis C Ab (EIA) Pending Hep C Ab Signal/Cutoff Pending 11/13/22 11/13/22 11/12/22 Range/Units 08:07 04:03 23:59 WBC 11.12 H (4.8-10.8) K/ul RBC 3.58 L (4.70-6.10) M/uL Hgb 12.2 L (14.0-18.0) g/dl Hct 33.5 L (42.0-52.0) % MCV 93.6 (80.0-100.0) fL MCH 34.1 H (25.0-34.0) pg MCHC 36.4 H (32.0-36.0) g/dL RDW Std Deviation 40.7 (36.4-46.3) fL RDW Coeff of Phoebe 11.9 (11.5-14.5) % Plt Count 175 (130-400) K/uL MPV 10.2 (9.4-12.4) fL Sodium (136-145) mmol/L Potassium (3.5-5.1) mmol/L Chloride (98-107) mmol/L Carbon Dioxide (21-32) mmol/L Anion Gap (3-11) BUN (6-23) mg/dl Creatinine (0.6-1.4) mg/dl Est Cr Clr Drug Dosing ml/min Est GFR ( Amer) ml/min Est GFR (Non-Af Amer) ml/min BUN/Creatinine Ratio (10-20) Glucose (70-99(Fasting)) mg/dl POC Glucose 136 H 194 H (70-99) mg/dl Calcium (8.6-10.3) mg/dl Magnesium (1.7-2.4) mg/dl Hepatitis C Ab (EIA) Hep C Ab Signal/Cutoff 11/12/22 11/12/22 11/12/22 Range/Units 20:53 18:33 15:23 WBC (4.8-10.8) K/ul RBC (4.70-6.10) M/uL Hgb (14.0-18.0) g/dl Hct (42.0-52.0) % MCV (80.0-100.0) fL MCH (25.0-34.0) pg MCHC (32.0-36.0) g/dL RDW Std Deviation (36.4-46.3) fL RDW Coeff of Phoebe (11.5-14.5) % Plt Count (130-400) K/uL MPV (9.4-12.4) fL Sodium (136-145) mmol/L Potassium (3.5-5.1) mmol/L Chloride (98-107) mmol/L Carbon Dioxide (21-32) mmol/L Anion Gap (3-11) BUN (6-23) mg/dl Creatinine (0.6-1.4) mg/dl Est Cr Clr Drug Dosing ml/min Est GFR ( Amer) ml/min Est GFR (Non-Af Amer) ml/min BUN/Creatinine Ratio (10-20) Glucose (70-99(Fasting)) mg/dl POC Glucose 265 H 181 H 147 H (70-99) mg/dl Calcium (8.6-10.3) mg/dl Magnesium (1.7-2.4) mg/dl Hepatitis C Ab (EIA) Hep C Ab Signal/Cutoff PG Care Time/CCT Total # of Minutes Spent Total Time Spent with Patient: Total time spent is greater than 50% in coordination of care (as documented) at patient's floor/unit and/or counseling patient: Coding Level of Care Code 04137 SUB INP/OBS CARE 2/35MIN Diagnoses Osteomyelitis of right tibia M86.9 Alcohol dependence, daily use F10.20 Atrial fibrillation with RVR I48.91 HTN (hypertension) I10 Hyperlipidemia E78.5 Diabetes type 2, uncontrolled E11.65 Background diabetic retinopathy associated with type 2 diabetes mellitus E11.3299 Personal history of diabetic foot ulcer Z86.31 COPD (chronic obstructive pulmonary disease) J44.9 Anxiety F41.9 Vitamin D deficiency E55.9 Thiamine deficiency E51.9 Tobacco abuse Z72.0 BPH (benign prostatic hyperplasia) N40.0
[2022-11-13] MEDS: FAMOTIDINE 40 MG TABLET PO SCH (08:47)
[2022-11-13 08:56] LABS: Hematocrit (blood only) 33.5 % (42.0-52.0); Hemoglobin 12.2 g/dl (14.0-18.0); Mean Corpuscular Hemoglobin 34.1 pg (25.0-34.0); Mean Corpuscular Hgb Conc 36.4 g/dL (32.0-36.0); Mean Corpuscular Volume 93.6 fL (80.0-100.0); Mean Platelet Volume 10.2 fL (9.4-12.4); Platelet Count 175 K/uL (130-400); RDW Coefficient of Variation 11.9 % (11.5-14.5); RDW Standard Deviation 40.7 fL (36.4-46.3); Red Blood Count 3.58 M/uL (4.70-6.10); White Blood Count 11.12 K/ul (4.8-10.8)
[2022-11-13] MEDS ORDERED: MEDICAL MARIJUANA INH PRN (09:00)
[2022-11-13 09:09] LABS: BUN Creatinine Ratio 13.1 (10-20); Calcium 8.3 mg/dl (8.6-10.3); Creatinine Clr Calc Pharmacy 72.2 ml/min; Est GFR (African American) 73.7 ml/min; Est GFR (Non-African American) 63.6 ml/min; Potassium 4.2 mmol/L (3.5-5.1)
[2022-11-13 10:52] LABS: Magnesium 1.3 mg/dl (1.7-2.4)
[2022-11-13] MEDS: MAGNESIUM SULFATE / D5W 1 GM/100 ML BAG IV SCH ×3 (12:01→15:37)
--- NOTE | 2022-11-13 14:49 | Pharmacy Report ---
Pharmacy Glycemic Short Note 2 - Date of Service November 13, 2022 - Glycemic Short BSG Results (Last 24 hours): 11/12/22 11/12/22 11/12/22 15:23 18:33 20:53 Glucose POC Glucose 147 H 181 H 265 H 11/12/22 11/13/22 11/13/22 23:59 04:03 08:07 Glucose 114 H POC Glucose 194 H 136 H 11/13/22 11/13/22 08:13 11:44 Glucose POC Glucose 120 H 156 H OUTPATIENT ANTIDIABETIC REGIMEN: * metformin * A1c 6.5% ASSESSMENT: * 62 year old s/p SITA 11/12 - pharmacy consulted for glycemic management. Patient is type 2 diabetic only on metformin at home * Received total of 32 units of insulin yesterday, of which 15 units were basal insulin to help covering steroid effects * Fasting BSG 114 mg/dL - will plan to continue only novolog for today PLAN FOR INPATIENT GLYCEMIC CONTROL: * Hold outpatient oral diabetes medications * Basal insulin * Lantus - hold * Bolus insulin * NovoLog per scale ACHS or Q6hrs while NPO * Goal Range: Low 110 mg/dL - High 140 mg/dL * Correction Factor: 25 mg/dL/unit * Nutritional / Prandial insulin per carb ratio of 1 unit per 9 grams CHO consumed
--- NOTE | 2022-11-13 14:59 | Progress Notes ---
DATE OF SERVICE: 11/13/2022. SUBJECTIVE: A 62-year-old gentleman with multiple medical comorbidities, postoperative day 1 from a right below-knee amputation. He is doing pretty well. He reports no particular pain. Therapy was a bit shaky today. No chest pain or shortness of breath. Not feeling dizzy or lightheaded. OBJECTIVE: VITAL SIGNS: Temperature 36.7. Vital signs are stable. EXTREMITIES: Examination of the right leg reveals the dressing to be in place. No drainage. He can do a straight leg raise. NEUROLOGIC: He is neurologically intact. LABORATORY DATA: Hemoglobin 12.2. Hematocrit 33.5. Electrolytes are stable. ASSESSMENT: A 62-year-old gentleman, postoperative day 1 from a right below-knee amputation, doing r easonably well. He has got a fairly poor social situation. I do not think it is in his best interes t to go directly home. PLAN: 1. DVT prophylaxis includes thigh-high TEDs, SCDs, and aspirin twice a day. 2. PT/OT. Mobilization as tolerated. 3. Wound care. We are going to leave this dressing on for 2-3 weeks until his followup appointment. Just leave the dressing in place. 4. DVT prophylaxis for excessive alcohol use. 5. Medical management as per the medicine service. 6. Disposition. I think this patient is best to go to rehab or halfway facility for a brief period of time. We will see how therapy continues to go and likely started on that. He seems like he is currently acceptable to that idea. Job ID: [id number]
[2022-11-13] MEDS: AMITRIPTYLINE HCL 25 MG TAB PO SCH (21:14)
[2022-11-13] MEDS: SENNA 8.6 MG TAB PO SCH (21:14)
[2022-11-13] MEDS: ATORVASTATIN 40 MG TAB PO SCH (21:14)
[2022-11-14] MEDS: KETOROLAC 30 MG/ML VIAL IV SCH ×3 (05:36→10:58)
[2022-11-14] MEDS: ACETAMINOPHEN 500 MG TAB PO SCH ×3 (05:37→21:06)
[2022-11-14] MEDS: METOPROLOL TARTRATE 50 MG TAB PO SCH ×2 (07:39→21:01)
[2022-11-14 07:40] LABS: Hematocrit (blood only) 34.3 % (42.0-52.0); Hemoglobin 12.5 g/dl (14.0-18.0); Mean Corpuscular Hemoglobin 34.3 pg (25.0-34.0); Mean Corpuscular Hgb Conc 36.4 g/dL (32.0-36.0); Mean Corpuscular Volume 94.2 fL (80.0-100.0); Platelet Count 165 K/uL (130-400); RDW Coefficient of Variation 11.9 % (11.5-14.5); RDW Standard Deviation 41.5 fL (36.4-46.3); Red Blood Count 3.64 M/uL (4.70-6.10); White Blood Count 8.56 K/ul (4.8-10.8)
--- NOTE | 2022-11-14 07:55 | Progress Notes ---
SUBJECTIVE: A 62-year-old gentleman, postoperative day 2 from a right below-knee amputation for an i nfected malunion. He is doing okay. He started to have a little bit of pain, but very manageable. Still not sure what his disposition plans are. OBJECTIVE: VITAL SIGNS: Temperature is 37.0. Vital signs are stable. GENERAL: Shows a pleasant middle-aged male. He is lying in bed and had to wake him this morning. EXTREMITIES: Examination of the right leg reveals the dressing to be clean, dry and intact. No sign s of drainage or problems. ASSESSMENT: A 62-year-old gentleman with multiple medical comorbidities postoperative day 2 from a r ight below-knee amputation. Medically and orthopedically he is doing fine. Just looking for place i n disposition. PLAN: 1. DVT prophylaxis includes thigh-high TEDs, SCDs, and aspirin twice a day. 2. PT/OT. Mobilization as tolerated. 3. Wound care. We are going to leave this bandage on for the next 2 to 3 weeks. 4. Disposition: Just waiting for discharge plans. He is not sure what the plan is. He needs assist danie with his animals at home. security services manager working on this. Job ID: [id number]
[2022-11-14 08:07] LABS: Albumin Level 3.2 gm/dl (3.4-5.0); Bilirubin,Total 0.7 mg/dl (0.2-1.0); Calcium 8.3 mg/dl (8.6-10.3); Magnesium 1.7 mg/dl (1.7-2.4); Potassium 4.1 mmol/L (3.5-5.1)
[2022-11-14 08:13] LABS: Albumin Globulin Ratio 1.5 (0.9-2); BUN Creatinine Ratio 13.9 (10-20); Creatinine Clr Calc Pharmacy 87.3 ml/min; Est GFR (African American) 92.6 ml/min; Est GFR (Non-African American) 79.9 ml/min; Globulin 2.2 gm/dl (2.5-4.0); Total Protein 5.4 gm/dl (6.0-8.3)
--- NOTE | 2022-11-14 08:29 | Hospitalist Progress Note ---
Date of Service November 14, 2022 Assessment & Plan (1) Osteomyelitis of right tibia: Plan: 62 y/o male w/ PmHx HTN, T2DM w/ diabetic neuropathy, BPH, A. fib w/ RVR, Thiamine deficiency, vit D deficiency, osteomyelitis of R tibia, COPD, HLD, arthritis, anxiety admitted for R BKA surgery. POD# 2 s/p Right Below Knee Amputation(Right) - Izaiah De Luna MD EBL 100cc WBC elevation likely combination stress/surgery/steroids, afebrile. Hgb 14.9--> 12.2. Acute blood loss anemia from surgery as well as dilutional from IVF. Repeat hgb remains stable Pain management/bowel regimen/PT/OT per primary service DVT proph : asa 81mg BID ordered. Added famotidine 40mg daily and rec continuing this at d/c for GI prophylaxis given alcohol use. Also rec cessation from such, as has been several days from last drink without issue at present Checked mag given hx possible paroxysmal afib -- 1.3, IV replacement ordered. Repeat 1.7 and ordered daily mag oxide, can consider continuing at dc Patient hoping to go home/drive --Given BKA, unclear if modifications to car/safety. PT evals --> dispo per primary service. Per patient, planning for dc tomorrow. Dispo per ortho/coordination w/ CM (2) Alcohol dependence, daily use: Plan: Prior drinking 6pk daily, last drink 3-4 days ago reported as wanted to be sober for procedure Continue to rec cessation Librium Q8H prn ordered by prior service -- has not had to use Continue thiamine/B12/folate -- consider continue at d/c given prior lows/etoh use Na improved 131 --> 134, appears chronically low. TSH wnl Rec outpt f/u w/ PCP for additional testing if remains low off etoh (3) Atrial fibrillation with RVR: Plan: A. Fib w/ RVR Remains in sinus currently on exam -- ?if from prior etoh use. EKG on pre-op testing also w/ NSR. No palpitations reported at present. Has not been drinking recently, denied recent palpitations but does note in time of increased stress/anxiety he does have palpitations Continues on metoprolol 50mg BID CHADsVASC score 3 for HTN, DM, peripheral vascular disease --> Recommend f/u PCP/consideration for holter/event to see how frequent/cessation of alcohol/discussed increased risk of stroke for underlying afib not on anticoagulation. On aspirin 81mg BID in meantime for DVT prophylaxis as above. Famotidine 40mg daily added for GI proph -- consider sending at d/c Checked mag -- 1.3, and IV replacement ordered and normalized on repeat Placed on daily mag oxide -- consider continuing at d/c (4) HTN (hypertension): Plan: Continue home metoprolol 50mg BID. Hydralazine made available prn given elevated BP 178/95 this morning (5) Hyperlipidemia: Plan: Cont home atorvastatin 80mg daily. (6) Diabetes type 2, uncontrolled: Plan: T2DM w/ neuropathy and diabetic retinopathy: More controlled over last year. Pharmacy glycemic consult in place. Continue home amitriptyline for neuropathy. Can hold meloxicam in setting of recent surgery. (7) Background diabetic retinopathy associated with type 2 diabetes mellitus: (8) Personal history of diabetic foot ulcer: (9) COPD (chronic obstructive pulmonary disease): Plan: not on any home inhalers, on room air at present 98% Tobacco use: Patient reports sometimes uses 1 pack per day other days doesn't use at all. Offered nicotine patch however patient declined at this time. Cessation recommended (10) Anxiety: (11) Vitamin D deficiency: (12) Thiamine deficiency: (13) Tobacco abuse: (14) BPH (benign prostatic hyperplasia): Plan: BPH: No home medications, can add flomax if symptomatic while in hospital. Anxiety: No home medications, can give PRN hydroxyzine if overly anxious while in hospital. Vitamin D deficiency: No home medication supplement noted, can readdress as outpatient. Plan Thank you for allowing hospitalist service to participate in the care of Mr Lind. Hospitalist service will sign off at this time. Please call with any questions/concerns Recommend patient have f/u PCP regarding his afib. Would obtain EKG w/ any reported palpitations/CP/SOB. Consider continuing B12/folate/thiamine at dc in addition to mag-oxide to prevent lows/elevated HRs Admission and Anticipated Discharge Date Admission Date: November 12, 2022 Supervising Physician Co-Signing Physician Notes The patient was not seen by me. The chart was reviewed. Case discussed with SUNG Wolff. Agree with assessment and plan Subjective eval this morning, doing alright. eating/drinking, passing lots of gas and feels like he has to hve BM. States some lightheadedness but no palpitations, chest pain or shortness of breath. he states the vitamins are overload for him and not sure if he wants to take -- encouraged. Also encouraged f/u PCP about his afib. Rates controlled, remains in sinus at present. Continues to deny palpitations which he has had in the past. RN to admin dose of hydralazine for BP. Waiting dispo per primary -- he states he is planning to stay inpatient today and hopeful for dc tomorrow. Questions/concerns addressed at this time. Physical Exam Physical Exam: General: WD male sitting up in bed, NAD HEENT; head normocephalic, atraumatic, mmm, trachea midline Resp:CTA, on room air CV: RRR, no significant m/r/g, no pitting ededma GI: +BS, slightly distended, nontender : no brothers MSK/Neuro: R BKA w/ dressing in place, no drainage observed Psych: AOx3 Results & Data Results & Data Vital Signs (Past 12 Hours) Vital Signs Temp Pulse Pulse Resp BP Pulse Ox O2 Del Method 11/14/22 07:38 72 186/90 H 11/14/22 07:36 36.9 C 75 16 172/94 H 98 Room Air 11/13/22 20:45 37 C 88 20 162/89 H 97 Room Air Laboratory Results 11/14/22 11/14/22 11/14/22 Range/Units 08:05 07:11 07:11 WBC (4.8-10.8) K/ul RBC (4.70-6.10) M/uL Hgb (14.0-18.0) g/dl Hct (42.0-52.0) % MCV (80.0-100.0) fL MCH (25.0-34.0) pg MCHC (32.0-36.0) g/dL RDW Std Deviation (36.4-46.3) fL RDW Coeff of Phoebe (11.5-14.5) % Plt Count (130-400) K/uL MPV (9.4-12.4) fL Sodium 134 L (136-145) mmol/L Potassium 4.1 (3.5-5.1) mmol/L Chloride 104 (98-107) mmol/L Carbon Dioxide 24 (21-32) mmol/L Anion Gap 6 (3-11) BUN 14 (6-23) mg/dl Creatinine 1.01 (0.6-1.4) mg/dl Est Cr Clr Drug Dosing 87.3 ml/min Est GFR ( Amer) 92.6 ml/min Est GFR (Non-Af Amer) 79.9 ml/min BUN/Creatinine Ratio 13.9 (10-20) Glucose 107 H (70-99(Fasting)) mg/dl POC Glucose 104 H (70-99) mg/dl Calcium 8.3 L (8.6-10.3) mg/dl Magnesium 1.7 (1.7-2.4) mg/dl Total Bilirubin 0.7 (0.2-1.0) mg/dl AST 28 (13-39) U/L ALT 8 (7-52) U/L Alkaline Phosphatase 46 (34-104) U/L Total Protein 5.4 L (6.0-8.3) gm/dl Albumin 3.2 L (3.4-5.0) gm/dl Globulin 2.2 L (2.5-4.0) gm/dl Albumin/Globulin Ratio 1.5 (0.9-2) TSH 1.803 (0.300-4.500) uIu/ml 11/14/22 11/13/22 11/13/22 Range/Units 07:11 20:42 17:11 WBC 8.56 (4.8-10.8) K/ul RBC 3.64 L (4.70-6.10) M/uL Hgb 12.5 L (14.0-18.0) g/dl Hct 34.3 L (42.0-52.0) % MCV 94.2 (80.0-100.0) fL MCH 34.3 H (25.0-34.0) pg MCHC 36.4 H (32.0-36.0) g/dL RDW Std Deviation 41.5 (36.4-46.3) fL RDW Coeff of Phoebe 11.9 (11.5-14.5) % Plt Count 165 (130-400) K/uL MPV 10.0 (9.4-12.4) fL Sodium (136-145) mmol/L Potassium (3.5-5.1) mmol/L Chloride (98-107) mmol/L Carbon Dioxide (21-32) mmol/L Anion Gap (3-11) BUN (6-23) mg/dl Creatinine (0.6-1.4) mg/dl Est Cr Clr Drug Dosing ml/min Est GFR ( Amer) ml/min Est GFR (Non-Af Amer) ml/min BUN/Creatinine Ratio (10-20) Glucose (70-99(Fasting)) mg/dl POC Glucose 133 H 104 H (70-99) mg/dl Calcium (8.6-10.3) mg/dl Magnesium (1.7-2.4) mg/dl Total Bilirubin (0.2-1.0) mg/dl AST (13-39) U/L ALT (7-52) U/L Alkaline Phosphatase (34-104) U/L Total Protein (6.0-8.3) gm/dl Albumin (3.4-5.0) gm/dl Globulin (2.5-4.0) gm/dl Albumin/Globulin Ratio (0.9-2) TSH (0.300-4.500) uIu/ml 11/13/22 11/13/22 Range/Units 11:44 08:07 WBC (4.8-10.8) K/ul RBC (4.70-6.10) M/uL Hgb (14.0-18.0) g/dl Hct (42.0-52.0) % MCV (80.0-100.0) fL MCH (25.0-34.0) pg MCHC (32.0-36.0) g/dL RDW Std Deviation (36.4-46.3) fL RDW Coeff of Phoebe (11.5-14.5) % Plt Count (130-400) K/uL MPV (9.4-12.4) fL Sodium (136-145) mmol/L Potassium (3.5-5.1) mmol/L Chloride (98-107) mmol/L Carbon Dioxide (21-32) mmol/L Anion Gap (3-11) BUN (6-23) mg/dl Creatinine (0.6-1.4) mg/dl Est Cr Clr Drug Dosing ml/min Est GFR ( Amer) ml/min Est GFR (Non-Af Amer) ml/min BUN/Creatinine Ratio (10-20) Glucose (70-99(Fasting)) mg/dl POC Glucose 156 H (70-99) mg/dl Calcium (8.6-10.3) mg/dl Magnesium 1.3 L (1.7-2.4) mg/dl Total Bilirubin (0.2-1.0) mg/dl AST (13-39) U/L ALT (7-52) U/L Alkaline Phosphatase (34-104) U/L Total Protein (6.0-8.3) gm/dl Albumin (3.4-5.0) gm/dl Globulin (2.5-4.0) gm/dl Albumin/Globulin Ratio (0.9-2) TSH (0.300-4.500) uIu/ml PG Care Time/CCT Total # of Minutes Spent Total Time Spent with Patient: Total time spent is greater than 50% in coordination of care (as documented) at patient's floor/unit and/or counseling patient: Coding Level of Care Code 68491 SUB INP/OBS CARE 235MIN Diagnoses Osteomyelitis of right tibia M86.9 Alcohol dependence, daily use F10.20 Atrial fibrillation with RVR I48.91 HTN (hypertension) I10 Hyperlipidemia E78.5 Diabetes type 2, uncontrolled E11.65 Background diabetic retinopathy associated with type 2 diabetes mellitus E11.3299 Personal history of diabetic foot ulcer Z86.31 COPD (chronic obstructive pulmonary disease) J44.9 Anxiety F41.9 Vitamin D deficiency E55.9 Thiamine deficiency E51.9 Tobacco abuse Z72.0 BPH (benign prostatic hyperplasia) N40.0
[2022-11-14] MEDS: THIAMINE HCL 100 MG TAB PO SCH (08:43)
[2022-11-14] MEDS: FOLIC ACID 1 MG TAB PO SCH (08:43)
[2022-11-14] MEDS: ASCORBIC ACID 500 MG TAB PO SCH ×2 (08:44→16:28)
[2022-11-14] MEDS: FAMOTIDINE 40 MG TABLET PO SCH (08:44)
[2022-11-14] MEDS: MULTIVITAMIN TAB PO SCH (08:45)
[2022-11-14] MEDS: INSULIN ASPART PER UNIT CHARGE SC SCH ×4 (08:50→21:30)
--- NOTE | 2022-11-14 08:53 | Pharmacy Report ---
Glycemic Ortho Sign Off Note - Date of Service November 14, 2022 - Scope Glycemic Pharmacist consulted for glycemic control and to write orders per [facility] inpatient glycemic control protocol. - Objective Accuchecks BSG (last 24hrs):: 11/13/22 11/13/22 11/13/22 08:07 11:44 17:11 Glucose 114 H POC Glucose 156 H 104 H 11/13/22 11/14/22 20:42 07:11 Glucose 107 H POC Glucose 133 H - Assessment * Pt is maintained on oral antidiabeticagent[s]as anoutpatient with excellent control per recent A1c * Blood sugars stable, therefore resumed home metformin on 11/14 - would recommend continuation of novolog with correction factor only * Goal is to maintain BSGs <200 mg/dl (ideally <150 mg/dl) to prevent post op complications - Plan For Inpatient Glycemic Control * Resumed home metformin - 500 mg bid 11/14 * Basal insulin * Not needed based on A1c, pre-op BSGs, and minimal risk factors for insulin resistance * Bolus insulin * Utilize low stress weight based NovoLog parameters per scale ACHS (correction factor only) * Pharmacy has entered glycemic orders and is signing off of the glycemic consult. We will no longer be making adjustments to inpatient regimen. Please feel free to re-consult if needed. Thank you.
[2022-11-14] MEDS: metFORMIN HCL 500 MG TAB PO SCH ×2 (09:06→16:28)
[2022-11-14] MEDS: CYANOCOBALAMIN (B-12) 500 MCG TABLET PO SCH (09:07)
[2022-11-14] MEDS: MAGNESIUM OXIDE 400 MG TAB PO SCH (09:11)
[2022-11-14] MEDS: ASPIRIN 81 MG ECTAB PO SCH ×2 (09:36→21:02)
[2022-11-14] MEDS: DOCUSATE SODIUM 100 MG CAP PO SCH ×2 (09:38→21:06)
[2022-11-14] MEDS: hydrALAZINE HCL 20 MG/ML VIAL IV PRN ×2 (11:36→22:00)
[2022-11-14] MEDS: ATORVASTATIN 40 MG TAB PO SCH (21:01)
[2022-11-14] MEDS: SENNA 8.6 MG TAB PO SCH (21:01)
[2022-11-14] MEDS: AMITRIPTYLINE HCL 25 MG TAB PO SCH (21:02)
[2022-11-15] MEDS: ACETAMINOPHEN 500 MG TAB PO SCH (05:23)
[2022-11-15] MEDS: metFORMIN HCL 500 MG TAB PO SCH (08:06)
[2022-11-15] MEDS: ASCORBIC ACID 500 MG TAB PO SCH (08:07)
[2022-11-15] MEDS: METOPROLOL TARTRATE 50 MG TAB PO SCH (08:07)
[2022-11-15] MEDS: ASPIRIN 81 MG ECTAB PO SCH (08:07)
[2022-11-15] MEDS: FAMOTIDINE 40 MG TABLET PO SCH (08:08)
[2022-11-15] MEDS: CYANOCOBALAMIN (B-12) 500 MCG TABLET PO SCH (08:08)
[2022-11-15] MEDS: THIAMINE HCL 100 MG TAB PO SCH (08:08)
[2022-11-15] MEDS: FOLIC ACID 1 MG TAB PO SCH (08:09)
[2022-11-15] MEDS: MULTIVITAMIN TAB PO SCH (08:09)
[2022-11-15] MEDS: MAGNESIUM OXIDE 400 MG TAB PO SCH (08:10)
[2022-11-15] MEDS: INSULIN ASPART PER UNIT CHARGE SC SCH ×2 (08:13→12:23)
[2022-11-15] MEDS: DOCUSATE SODIUM 100 MG CAP PO SCH (08:15)
--- NOTE | 2022-11-15 09:30 | Progress Notes ---
DATE OF SERVICE: 11/15/2022. SUBJECTIVE: A 62-year-old gentleman now postop day #3 from a right below-knee amputation. He is doi ng well. He is really adamant about going home and not going to rehab or [place] [facility]. His pain is controlled. Denies any chest pain or shortness of breath. OBJECTIVE: VITAL SIGNS: Temperature 36.9. Vital signs are stable. GENERAL: Shows a pleasant middle-aged male. He is lying in bed. He is awake, alert and appropriate . EXTREMITIES: Examination of the right leg reveals the dressing to be clean, dry and in place. No si gns of drainage. ASSESSMENT: A 62-year-old gentleman with multiple medical comorbidities. Postop day #3 from a right below-knee amputation. He is requesting to go home. Pain is controlled. PLAN: 1. DVT prophylaxis includes thigh-high TEDs, SCDs, and aspirin twice a day. 2. PT/OT. Mobilize as tolerated. 3. Pain control, doing okay with current pain regimen. 4. Disposition: Plan to discharge to home later today with some home health. Job ID: [id number]
--- NOTE | 2022-11-18 13:26 | Discharge Summary ---
Date of Service November 18, 2022 Discharge Data Consultations 11/12/22 16:59 Consult Hospitalist Routine Procedures Performed Operation Date: 11/12/22 12:30 Actual Procedures p Right Below Knee Amputation(Right) - Izaiah De Luna MD Hospital Course (1) Amputation of right lower extremity below knee: This is a 62 year old patient admitted on 11/12/22 and underwent below knee amputation. He tolerated the procedure well and there were no complications. Transferred to the PACU post op and later to the orthopedic floor for further care. He was given ancef for antibiotic prophylaxis. He was also given SRINIVASAN stockings, SCDs, and aspirin for DVT prophylaxis. Hemoglobin, hematocrit, and vital signs were monitored during his hospital stay and remained stable. Did not require any blood transfusions. The Hospitalist service was consulted for medical management post operatively. There were no complications during his hospital stay. By post op day #3 the patient was tolerating a diabetic diet, pain was reasonably controlled with oral pain medicine, and he was participating in physical therapy. On post op day #3 the patient was discharged home and set up with home health care. He was given printed discharge instructions including prescriptions for extra strength tylenol, aspirin, and oxycodone. Follow up approximately 2 weeks post op or sooner if there are problems or concerns. Coding Level of Care Code None Diagnoses Amputation of right lower extremity below knee S88.111A
== END 2022-11-15 14:18 | disposition home health service (06) | DRG 475 ==
LOC: ASU 09:42 → PACUINP 15:27 → INTOOBSV 15:27 → 3E 18:08

== ENCOUNTER 2023-05-08 11:05 | Inpatient (IN) ==
--- NOTE | 2023-05-08 11:09 | Emergency Department Note ---
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 He reports he has been feeling weak for the past several days. He denies cough or congestion but did feel chills last night. He admits that he was drinking alcohol yesterday and was "lift". However he feels his weakness was more than just being intoxicated. He denies any head strike or loss of consciousness. No new pain in his back extremities or legs. He reports he simply pulled the comforter off his bed and stayed there all night until he called EMS in the morning. On my evaluation the patient is fatigued appearing but no distress, afebrile with heart in the 90s and blood pressure 140s/100s and vital signs otherwise stable. He appears intoxicated. He has moderate dysarthric speech. He is moving extremities equally without difficulty. Head is atraumatic. There is no midline CTL spine tenderness palpation or step-offs. Pelvis is stable and hips with full range of motion bilaterally. Patient's right BKA is unremarkable with stump without discoloration edema or tenderness. EKG demonstrates atrial fibrillation without overt acute ischemia. CXR negative for acute cardiopulmonary process. WBC, hemoglobin and platelets within normal limits. Chemistry without metabolic acidosis. Sodium 123 with urine osmolality dilated suggestive of polydipsia in setting of alcoholism. Magnesium 1.5 with IV repletion initiated. LFTs are unremarkable. CPK wnl. TSH within normal limits. Medical alcohol was 134. Respiratory BioFire was negative. Treatment was provided with IV hydration, IV thiamine in addition to IV magnesium. Findings reviewed the patient agrees with plan for admission for further management. CT of the head and C-spine were ordered for completeness. Case was discussed with Dr. JAVIER Hood hospitalist, who will evaluate the patient for admission. CT of the head and C-spine subsequently negative for acute abnormalities. Further management per admitting team. Triage Nursing notes reviewed and agree them. Prior/outside medical records reviewed Vital Signs: reviewed Differential diagnosis: Infection, dehydration, metabolic abnormality, hypo/hyperglycemia, electrolyte disturbance, anemia, hypoxia, cardiac sources, intracerebral event, toxicologic, neurologic, as well as other pathologies. ER treatment provided: See below. Diagnostics interpreted by me: ECG: Atrial fibrillation, 88 bpm, no ectopy, no overt ST elevation or depression, QTc 474, QRS 84 Cardiac Monitoring: An order for continuous cardiac monitoring was placed and demonstrated Atrial fibrillation, 88 bpm, no ectopy. Laboratory studies: See below Imaging studies: See below Consultation(s): Case was discussed with Dr. Hood, [facility] hospitalist, who will evaluate the patient for admission. 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 He reports he has been feeling weak for the past several days. He denies cough or congestion but did feel chills last night. He admits that he was drinking alcohol yesterday and was "lift". However he feels his weakness was more than just being intoxicated. He denies any head strike or loss of consciousness. No new pain in his back extremities or legs. He reports he simply pulled the comforter off his bed and stayed there all night until he called EMS in the morning. ROS: See above HPI for pertinent positives & negatives. A total of 10 systems reviewed and were otherwise negative. VITALS:See Below PHYSICAL EXAMINATION: GENERAL: Awake, alert, intoxicated-appearing, in no distress HENT: Normocephalic, atraumatic. Oropharynx with dry mucous membranes and otherwise unremarkable. EYES: Normal conjunctiva. Sclera non-icteric. EOMI. No nystamgus. PEARRL. NECK: Supple. No nuchal rigidity. FROM. No JVD. RESPIRATORY: Clear to auscultation. CARDIAC: Regular rate, irregular rhythm. Extremities warm and well perfused. Pulses equal. ABDOMEN: Soft, non-distended. No tenderness to palpation. No rebound or guarding. No masses. RECTAL: Deferred. MUSCULOSKELETAL: Chest examination reveals no tenderness. The back is symmetrical on inspection without obvious abnormality. No midline CTL spine tenderness with patient or step-offs. There is no CVA tenderness to palpation. No joint edema. Right BKA c/d/i. Pelvis is stable. LOWER EXTREMITIES: Left calf non-tender. No edema. No discoloration. NEURO: Moderate dysarthria. Alert and oriented x4. Moving extremities equally without difficulty. SKIN: No rash or jaundice noted. Maldonado Bush MD Past Med/Surg History Medical History (Updated 05/08/23 @ 23:28 by Maldonado Bush MD) Alcohol dependence, daily use 6 pack beer per day per patient Anxiety Atrial fibrillation Dx 2014, follows with [facility] cardiology last visit 04/2022 Atco not to be AC candidate due to medical noncompliance and alcohol abuse per cardio records Background diabetic retinopathy associated with type 2 diabetes mellitus BPH (benign prostatic hyperplasia) COPD (chronic obstructive pulmonary disease) Breathing enlarged Diabetes type 2, uncontrolled NIDDM Hgb A1C 6.5 on 10/16/22 Diabetic neuropathy Encounter for pre-operative examination Hyperlipidemia Hypertension Mass of subcutaneous tissue of back stable x several years (right upper side) Osteomyelitis of right tibia Right ankle fracture November 2020- led to osteomyelitis per records Pancreatic mass Stable per pt Personal history of diabetic foot ulcer Right Segmental and somatic dysfunction of upper extremity Temporomandibular joint disorder Right side clicking, no locking Surgical History History of esophagogastroduodenoscopy (EGD) History of hand surgery CHILD History of tooth extraction Status post laser cataract surgery of both eyes Family History Grandfather Myocardial infarction Father Diabetes Mother Dementia Brother No problems noted. Sister No problems noted. Sister No problems noted. Sister No problems noted. Denies family history of Ovarian cancer Prostate cancer Breast cancer Colorectal cancer Social History Smoking Status: Current every day smoker Tobacco Type: Cigarettes Age Started Using Tobacco: 19; packs per day: 1; Cigarettes Per Day: 1 PPD x 40+ years ADVISED; Second Hand Exposure: No; Do You Dip or Chew Tobacco: No; Hx Alcohol Use: Yes (6 PCK PER DAY) Alcohol type: beer Alcohol type Comment: 6 PACK DAILY PER PT Hx Substance Use: Yes Last Used Substance Other:: two days ago- ONLY USES WHEN NEEDED, NOT DAILY Substance Use Type Other:: medical card prn Preferred Language: Omani Communication Ability: Effective Visual Impairment: No Limitations Hearing Ability: Normal Mixer Driver Required: No Beliefs That Will Affect Care: None marital status: Single Current Living Situation: Alone Current Living Situation Comment: states has no one to help current occupational status: employed current occupation: [employer] Feels Safe at Home: Yes Childhood Exposure to Second-Hand Smoke: No Diet: regular caffeine: No during the past year weight has: remained stable Dental Care, Regularly: No Physical Activity Frequency: Does not Exercise Seatbelt Use: always Sunscreen Use: No Assistive Devices: Crutches and Wheelchair Allergies Allergies Allergy/AdvReac Type Severity Reaction Status Date / Time No Known Allergies Allergy Verified 11/12/22 10:02 Home Meds Home Medications Medication Instructions Recorded Confirmed amitriptyline 25 mg tablet 25 mg PO QPM 05/08/23 05/08/23 Previous Rx's Medication Instructions Recorded Wheelchair (Manual) (Manual #1 ea 10/10/22 Wheelchair) Wheelchair (Manual) (Manual #1 ea 10/10/22 Wheelchair) Wheeled Walker #1 ea 10/10/22 Knee Scooter #1 ea 11/18/22 blood sugar diagnostic (OneTouch #100 ea 11/19/22 Ultra Test strips) blood-glucose meter (OneTouch #1 ea 11/19/22 Ultra2 Meter) lancets 33 gauge (OneTouch Delica #100 ea 11/19/22 Lancets) atorvastatin 80 mg tablet 80 mg PO PM #90 tabs 05/05/23 meloxicam 7.5 mg tablet 7.5 mg PO BID PRN pain #180 tabs 05/05/23 metformin 1,000 mg tablet 500 mg PO BID #180 tabs 05/05/23 metoprolol tartrate 50 mg tablet 50 mg PO BID #60 tabs 05/05/23 Results & Data (ED) Vital Signs Vital Signs - 24 hr 05/08/23 11:15 05/08/23 11:30 05/08/23 12:00 Temperature 36.4 C L Temperature Source Oral Pulse Rate 97 H 99 H Pulse Rate from SpO2 Sensor 86 99 H Pulse Rhythm Regular Pulse Strength Normal Respiratory Rate 15 13 Respiratory Effort / Characteristics Non-Labored Spontaneous Respiratory Depth Normal Respiratory Pattern Regular Blood Pressure 146/109 H 123/81 121/87 Blood Pressure Mean 121 95 98 Blood Pressure Position Lying Pulse Oximetry 100 99 99 Oxygen Delivery Method Room Air Sepsis Recent Fever Within 48 Hours No Sepsis New/Unexplained Change in Mental Status No Sepsis Action Taken by Nursing No Action Required 05/08/23 12:21 05/08/23 13:00 05/08/23 14:26 Temperature Temperature Source Pulse Rate 93 H 100 H 100 H Pulse Rate from SpO2 Sensor 109 H Pulse Rhythm Pulse Strength Respiratory Rate 17 16 Respiratory Effort / Characteristics Respiratory Depth Respiratory Pattern Blood Pressure 131/81 164/103 H Blood Pressure Mean 97 123 Blood Pressure Position Pulse Oximetry 98 100 Oxygen Delivery Method Sepsis Recent Fever Within 48 Hours Sepsis New/Unexplained Change in Mental Status Sepsis Action Taken by Nursing Laboratory Data 05/08/23 11:17 05/08/23 11:17 Lab Results 05/08/23 05/08/23 05/08/23 Range/Units 11:17 11:17 11:17 WBC 5.54 (4.8-10.8) K/ul RBC 4.23 L (4.70-6.10) M/uL Hgb 14.0 (14.0-18.0) g/dl Hct 38.4 L (42.0-52.0) % MCV 90.8 (80.0-100.0) fL MCH 33.1 (25.0-34.0) pg MCHC 36.5 H (32.0-36.0) g/dL RDW Std Deviation 37.5 (36.4-46.3) fL RDW Coeff of Phoebe 11.3 L (11.5-14.5) % Plt Count 195 (130-400) K/uL MPV 9.9 (9.4-12.4) fL Immature Gran % (Auto) 0.4 % Neut % (Auto) 51.4 % Lymph % (Auto) 34.8 % [place] % (Auto) 10.8 % Eos % (Auto) 2.2 % Baso % (Auto) 0.4 % Neut # (Auto) 2.85 (1.40-6.50) K/uL Lymph # (Auto) 1.93 (1.20-3.40) K/uL [place] # (Auto) 0.60 H (0.11-0.59) K/uL Eos # (Auto) 0.12 (0.00-0.50) K/uL Baso # (Auto) 0.02 (0.00-0.20) K/uL Immature Gran # (Auto) 0.02 (0.01-0.20) K/uL PT 11.8 (9.0-12.0) Seconds INR 1.1 (0.9-1.1) Sodium 123 L (136-145) mmol/L Potassium 3.9 (3.5-5.1) mmol/L Chloride 90 L (98-107) mmol/L Carbon Dioxide 21 (21-32) mmol/L Anion Gap 12 H (3-11) BUN 6 (6-23) mg/dl Creatinine 0.85 (0.6-1.4) mg/dl Est Cr Clr Drug Dosing 103.6 ml/min Est GFR ( Amer) 109.0 ml/min Est GFR (Non-Af Amer) 94.0 ml/min BUN/Creatinine Ratio 7.1 L (10-20) Glucose 128 H (70-99(Fasting)) mg/dl Osmolality (280-300) mOsm/kg Calcium 8.9 (8.6-10.3) mg/dl Phosphorus 4.3 (2.5-4.9) mg/dl Magnesium 1.5 L (1.7-2.4) mg/dl Total Bilirubin 0.7 (0.2-1.0) mg/dl Direct Bilirubin 0.1 (0-0.2) mg/dl AST 24 (13-39) U/L ALT 18 (7-52) U/L Alkaline Phosphatase 66 (34-104) U/L Total Creatine Kinase 85 (30-223) U/L Total Protein 6.1 (6.0-8.3) gm/dl Albumin 3.9 (3.4-5.0) gm/dl Globulin 2.2 L (2.5-4.0) gm/dl Albumin/Globulin Ratio 1.8 (0.9-2) Lipase 70 (11-82) U/L TSH 1.615 (0.300-4.500) uIu/ml Urine Color Urine Appearance (Clear) Urine pH (4.5-7.5) Ur Specific Jordan (1.000-1.030) Urine Protein (Negative) Urine Glucose (UA) (Negative) Urine Ketones (Negative) Urine Blood (Negative) Urine Nitrite (Negative) Urine Bilirubin (Negative) Urine Urobilinogen (Negative) Ur Leukocyte Esterase (Negative) Urine Osmolality (500-800) mOsm/kg Ur Random Sodium mmol/L Ethyl Alcohol mg/dL (<10.0) mg/dl Adenovirus (PCR) (NotDetected) B. pertussis DNA (PCR) (NotDetected) B.parapertussis DNA PCR (NotDetected) C. pneumoniae DNA (PCR) (NotDetected) Coronavirus OC43 (PCR) (NotDetected) Coronavirus HKU1 (PCR) (NotDetected) Coronavirus 229E (PCR) (NotDetected) SARS-CoV-2 (PCR) (NotDetected) Coronavirus NL63 (PCR) (NotDetected) Human Metapneumovir PCR (NotDetected) Influenza Type A (PCR) (NotDetected) Influenza Type B (PCR) (NotDetected) M. pneumoniae (PCR) (NotDetected) Parainfluenza 1 (PCR) (NotDetected) Parainfluenza 2 (PCR) (NotDetected) Parainfluenza 3 (PCR) (NotDetected) Parainfluenza 4 (PCR) (NotDetected) RSV (PCR) (NotDetected) Entero/Rhino (PCR) (NotDetected) 05/08/23 05/08/23 05/08/23 Range/Units 11:17 11:41 11:42 WBC (4.8-10.8) K/ul RBC (4.70-6.10) M/uL Hgb (14.0-18.0) g/dl Hct (42.0-52.0) % MCV (80.0-100.0) fL MCH (25.0-34.0) pg MCHC (32.0-36.0) g/dL RDW Std Deviation (36.4-46.3) fL RDW Coeff of Phoebe (11.5-14.5) % Plt Count (130-400) K/uL MPV (9.4-12.4) fL Immature Gran % (Auto) % Neut % (Auto) % Lymph % (Auto) % [place] % (Auto) % Eos % (Auto) % Baso % (Auto) % Neut # (Auto) (1.40-6.50) K/uL Lymph # (Auto) (1.20-3.40) K/uL [place] # (Auto) (0.11-0.59) K/uL Eos # (Auto) (0.00-0.50) K/uL Baso # (Auto) (0.00-0.20) K/uL Immature Gran # (Auto) (0.01-0.20) K/uL PT (9.0-12.0) Seconds INR (0.9-1.1) Sodium (136-145) mmol/L Potassium (3.5-5.1) mmol/L Chloride (98-107) mmol/L Carbon Dioxide (21-32) mmol/L Anion Gap (3-11) BUN (6-23) mg/dl Creatinine (0.6-1.4) mg/dl Est Cr Clr Drug Dosing ml/min Est GFR ( Amer) ml/min Est GFR (Non-Af Amer) ml/min BUN/Creatinine Ratio (10-20) Glucose (70-99(Fasting)) mg/dl Osmolality 292 (280-300) mOsm/kg Calcium (8.6-10.3) mg/dl Phosphorus (2.5-4.9) mg/dl Magnesium (1.7-2.4) mg/dl Total Bilirubin (0.2-1.0) mg/dl Direct Bilirubin (0-0.2) mg/dl AST (13-39) U/L ALT (7-52) U/L Alkaline Phosphatase (34-104) U/L Total Creatine Kinase (30-223) U/L Total Protein (6.0-8.3) gm/dl Albumin (3.4-5.0) gm/dl Globulin (2.5-4.0) gm/dl Albumin/Globulin Ratio (0.9-2) Lipase (11-82) U/L TSH (0.300-4.500) uIu/ml Urine Color Urine Appearance (Clear) Urine pH (4.5-7.5) Ur Specific Jordan (1.000-1.030) Urine Protein (Negative) Urine Glucose (UA) (Negative) Urine Ketones (Negative) Urine Blood (Negative) Urine Nitrite (Negative) Urine Bilirubin (Negative) Urine Urobilinogen (Negative) Ur Leukocyte Esterase (Negative) Urine Osmolality (500-800) mOsm/kg Ur Random Sodium mmol/L Ethyl Alcohol mg/dL 134.5 H (<10.0) mg/dl Adenovirus (PCR) Not Detected (NotDetected) B. pertussis DNA (PCR) Not Detected (NotDetected) B.parapertussis DNA PCR Not Detected (NotDetected) C. pneumoniae DNA (PCR) Not Detected (NotDetected) Coronavirus OC43 (PCR) Not Detected (NotDetected) Coronavirus HKU1 (PCR) Not Detected (NotDetected) Coronavirus 229E (PCR) Not Detected (NotDetected) SARS-CoV-2 (PCR) Not Detected (NotDetected) Coronavirus NL63 (PCR) Not Detected (NotDetected) Human Metapneumovir PCR Not Detected (NotDetected) Influenza Type A (PCR) Not Detected (NotDetected) Influenza Type B (PCR) Not Detected (NotDetected) M. pneumoniae (PCR) Not Detected (NotDetected) Parainfluenza 1 (PCR) Not Detected (NotDetected) Parainfluenza 2 (PCR) Not Detected (NotDetected) Parainfluenza 3 (PCR) Not Detected (NotDetected) Parainfluenza 4 (PCR) Not Detected (NotDetected) RSV (PCR) Not Detected (NotDetected) Entero/Rhino (PCR) Not Detected (NotDetected) 05/08/23 05/08/23 05/08/23 Range/Units 13:50 13:50 13:50 WBC (4.8-10.8) K/ul RBC (4.70-6.10) M/uL Hgb (14.0-18.0) g/dl Hct (42.0-52.0) % MCV (80.0-100.0) fL MCH (25.0-34.0) pg MCHC (32.0-36.0) g/dL RDW Std Deviation (36.4-46.3) fL RDW Coeff of Phoebe (11.5-14.5) % Plt Count (130-400) K/uL MPV (9.4-12.4) fL Immature Gran % (Auto) % Neut % (Auto) % Lymph % (Auto) % [place] % (Auto) % Eos % (Auto) % Baso % (Auto) % Neut # (Auto) (1.40-6.50) K/uL Lymph # (Auto) (1.20-3.40) K/uL [place] # (Auto) (0.11-0.59) K/uL Eos # (Auto) (0.00-0.50) K/uL Baso # (Auto) (0.00-0.20) K/uL Immature Gran # (Auto) (0.01-0.20) K/uL PT (9.0-12.0) Seconds INR (0.9-1.1) Sodium (136-145) mmol/L Potassium (3.5-5.1) mmol/L Chloride (98-107) mmol/L Carbon Dioxide (21-32) mmol/L Anion Gap (3-11) BUN (6-23) mg/dl Creatinine (0.6-1.4) mg/dl Est Cr Clr Drug Dosing ml/min Est GFR ( Amer) ml/min Est GFR (Non-Af Amer) ml/min BUN/Creatinine Ratio (10-20) Glucose (70-99(Fasting)) mg/dl Osmolality (280-300) mOsm/kg Calcium (8.6-10.3) mg/dl Phosphorus (2.5-4.9) mg/dl Magnesium (1.7-2.4) mg/dl Total Bilirubin (0.2-1.0) mg/dl Direct Bilirubin (0-0.2) mg/dl AST (13-39) U/L ALT (7-52) U/L Alkaline Phosphatase (34-104) U/L Total Creatine Kinase (30-223) U/L Total Protein (6.0-8.3) gm/dl Albumin (3.4-5.0) gm/dl Globulin (2.5-4.0) gm/dl Albumin/Globulin Ratio (0.9-2) Lipase (11-82) U/L TSH (0.300-4.500) uIu/ml Urine Color Yellow Urine Appearance Clear (Clear) Urine pH 5.5 (4.5-7.5) Ur Specific [place] 1.005 (1.000-1.030) Urine Protein Negative (Negative) Urine Glucose (UA) Negative (Negative) Urine Ketones Negative (Negative) Urine Blood Negative (Negative) Urine Nitrite Negative (Negative) Urine Bilirubin Negative (Negative) Urine Urobilinogen Negative (Negative) Ur Leukocyte Esterase Negative (Negative) Urine Osmolality 149 L (500-800) mOsm/kg Ur Random Sodium 24 mmol/L Ethyl Alcohol mg/dL (<10.0) mg/dl Adenovirus (PCR) (NotDetected) B. pertussis DNA (PCR) (NotDetected) B.parapertussis DNA PCR (NotDetected) C. pneumoniae DNA (PCR) (NotDetected) Coronavirus OC43 (PCR) (NotDetected) Coronavirus HKU1 (PCR) (NotDetected) Coronavirus 229E (PCR) (NotDetected) SARS-CoV-2 (PCR) (NotDetected) Coronavirus NL63 (PCR) (NotDetected) Human Metapneumovir PCR (NotDetected) Influenza Type A (PCR) (NotDetected) Influenza Type B (PCR) (NotDetected) M. pneumoniae (PCR) (NotDetected) Parainfluenza 1 (PCR) (NotDetected) Parainfluenza 2 (PCR) (NotDetected) Parainfluenza 3 (PCR) (NotDetected) Parainfluenza 4 (PCR) (NotDetected) RSV (PCR) (NotDetected) Entero/Rhino (PCR) (NotDetected) Administered Medications Amitriptyline HCl (Amitriptyline Hcl 25 Mg Tab) 25 mg PO QPM ROJELIO Stop: 06/07/23 20:59 Last Admin: 05/08/23 21:23 Dose: 25 mg Documented By: NYDIA Atorvastatin Calcium (Atorvastatin 40 Mg Tab) 80 mg PO PM ROJELIO Stop: 06/07/23 20:59 Last Admin: 05/08/23 21:23 Dose: 80 mg Documented By: NYDIA Chlordiazepoxide HCl (Chlordiazepoxide Hcl 25 Mg Cap) 50 mg PO Q6H ROJELIO Stop: 05/09/23 12:00 Last Admin: 05/08/23 18:55 Dose: 50 mg Documented By: NYDIA Insulin Aspart (Insulin Aspart Per Unit Charge) 0 units SC ACHS ROJELIO Stop: 06/07/23 16:29 Last Admin: 05/08/23 22:02 Dose: 1 units Documented By: NYDIA Co-signed By: MEMOK Admin: 05/08/23 19:19 Dose: 1 units Documented By: CLIFFORD Co-signed By: NYDIA Metoprolol Tartrate (Metoprolol Tartrate 50 Mg Tab) 50 mg PO BID ROJELIO Stop: 06/07/23 20:59 Last Admin: 05/08/23 21:22 Dose: 50 mg Documented By: NYDIA Discontinued Medications Multivitamins 10 ml/ Thiamine HCl 100 mg/ Folic Acid 1 mg/Sodium Chloride 1,011.2 mls @ 500 mls/hr IV .Q2H2M ONE Stop: 05/08/23 13:23 Last Infusion: 05/08/23 15:37 Dose: 0 mls/hr Documented By: Admin: 05/08/23 12:09 Dose: 500 mls/hr Documented By: MARIAN Thiamine HCl 200 mg/ Sodium (Chloride) 52 mls @ 210 mls/hr IV NOW STA Stop: 05/08/23 11:36 Last Infusion: 05/08/23 13:50 Dose: 0 mls/hr Documented By: Admin: 05/08/23 12:09 Dose: 210 mls/hr Documented By: MARIAN Magnesium Sulfate/Dextrose (Magnesium Sulfate / D5w) 1 gm in 100 mls @ 100 mls/hr IV NOW STA Stop: 05/08/23 14:45 Last Infusion: 05/08/23 15:37 Dose: 0 mls/hr Documented By: Admin: 05/08/23 13:54 Dose: 100 mls/hr Documented By: MICHELLE Magnesium Sulfate/Dextrose (Magnesium Sulfate / D5w) 1 gm in 100 mls @ 50 mls/hr IV Q2H ROJELIO Stop: 05/08/23 21:58 Last Admin: 05/08/23 21:34 Dose: 50 mls/hr Documented By: Infusion: 05/08/23 21:20 Dose: 0 mls/hr Documented By: Admin: 05/08/23 18:55 Dose: 50 mls/hr Documented By: NYDIA Lorazepam (Lorazepam 2 Mg/1 Ml Vial) 0.5 mg IV NOW STA Stop: 05/08/23 16:04 Last Admin: 05/08/23 16:15 Dose: 0.5 mg Documented By: NYDIA Metoprolol Succinate (Metoprolol Succ 50mg Ext Rel Tab) 50 mg PO NOW STA Stop: 05/08/23 16:04 Last Admin: 05/08/23 16:14 Dose: 50 mg Documented By: NYDIA Imaging Data Radiologist's Impression: Chest X-Ray 05/08/23 11:22 XR chest 1V portable HISTORY: weakness COMPARISON: Chest 10/16/2022. FINDINGS: The lungs are clear. Cardiac silhouette is normal in size. No pleural effusions. No pneumothorax. IMPRESSION: No acute process. ACT 112: Negative or not required by law. Electronically signed by: Chip Cerda M.D. 05/08/2023 11:[address] 05/08/23 13:[address] DOSE: 1137.06 mGy.cm HISTORY: weak, pain, fall TECHNIQUE: Multiaxial CT images of the cervical spine were performed and reformatted in the sagittal and coronal plane without the use of contrast. A dose lowering technique was utilized adhering to the principles of ALARA. COMPARISON: None. FINDINGS: No fractures. No subluxation. Prevertebral soft tissues and the C1-C2 interval are intact. No pneumothorax. Scattered subcentimeter nodules measure up to 3 mm within the lung apices which appear stable and are therefore likely benign. Moderate degenerative disease within the mid to lower cervical spine. There is straightening of the cervical spine. IMPRESSION: No fractures within the cervical spine. ACT 112: Negative or not required by law. Electronically signed by: Chip Cerda M.D. 05/08/2023 2:[address] 05/08/23 13:34 CT head/brain wo con CLINICAL HISTORY: 62 years-old Male with weak, pain, fall. Acute headache with weakness TECHNIQUE: Multiple axial CT images of the head were obtained without contrast. A dose lowering technique was utilized adhering to the principles of ALARA. COMPARISON: CT cervical spine of same day FINDINGS: No acute intracranial hemorrhage, midline shift, intracranial mass, hydrocephalus, territorial ischemia or abnormal extra-axial collection. Mild involutional changes. Study is motion degraded. The calvarium is intact. The paranasal sinuses, mastoid air cells, and middle ear cavities are clear. IMPRESSION: No acute intracranial abnormality. ACT 112: Negative or not required by law. The above report was generated using voice recognition software. It may contain grammatical, syntax or spelling errors. Electronically signed by: Enzo De Jesus M.D. 05/08/2023 2:36 PM Discharge Plan Visit Data Chief Complaint: Fall Stated Complaint: FALL ED Provider: Maldonado Bush Discharge Problem: Hyponatremia, Alcohol dependence, daily use, Generalized weakness, Hypomagnesemia Patient Disposition: Admitted As Inpatient Discharge Instructions Interventions: ED Discharge Assessment Last Done: 05/08/23 17:58
[2023-05-08] MEDS ORDERED: THIAMINE HCL 200 MG in SODIUM CHLORIDE 0.9% 50 ML IV STA (11:22)
[2023-05-08] MEDS ORDERED: MULTI-VITAMIN INFUSION 10 ML, THIAMINE HCL 100 MG, FOLIC ACID 1 MG in SODIUM CHLORIDE 0... IV ONE (11:22)
[2023-05-08 11:54] LABS: Basophils # (auto) 0.02 K/uL (0.00-0.20); Basophils % (auto) 0.4 %; Eosinophils # (auto) 0.12 K/uL (0.00-0.50); Eosinophils % (auto) 2.2 %; Hematocrit (blood only) 38.4 % (42.0-52.0); Immature Granulocytes # (auto) 0.02 K/uL (0.01-0.20); Immature Granulocytes % (auto) 0.4 %; Lymphocytes # (auto) 1.93 K/uL (1.20-3.40); Lymphocytes % (auto) 34.8 %; Mean Corpuscular Hemoglobin 33.1 pg (25.0-34.0); Mean Corpuscular Hgb Conc 36.5 g/dL (32.0-36.0); Mean Corpuscular Volume 90.8 fL (80.0-100.0); Mean Platelet Volume 9.9 fL (9.4-12.4); Monocytes % (auto) 10.8 %; Neutrophils # (auto) 2.85 K/uL (1.40-6.50); Neutrophils % (auto) 51.4 %; Platelet Count 195 K/uL (130-400); RDW Coefficient of Variation 11.3 % (11.5-14.5); RDW Standard Deviation 37.5 fL (36.4-46.3); Red Blood Count 4.23 M/uL (4.70-6.10); White Blood Count 5.54 K/ul (4.8-10.8)
--- NOTE | 2023-05-08 11:55 | XRay Report ---
XR chest 1V portable HISTORY: weakness COMPARISON: Chest 10/16/2022. FINDINGS: The lungs are clear. Cardiac silhouette is normal in size. No pleural effusions. No pneumot horax. IMPRESSION: No acute process. ACT 112: Negative or not required by law. Electronically signed by: Chip Cerda M.D. 05/08/2023 11:54 AM
[2023-05-08 12:18] LABS: Albumin Globulin Ratio 1.8 (0.9-2); Albumin Level 3.9 gm/dl (3.4-5.0); BUN Creatinine Ratio 7.1 (10-20); Bilirubin,Total 0.7 mg/dl (0.2-1.0); Calcium 8.9 mg/dl (8.6-10.3); Creatinine Clr Calc Pharmacy 103.6 ml/min; Globulin 2.2 gm/dl (2.5-4.0); Magnesium 1.5 mg/dl (1.7-2.4); Phosphorus 4.3 mg/dl (2.5-4.9); Potassium 3.9 mmol/L (3.5-5.1); Total Protein 6.1 gm/dl (6.0-8.3)
[2023-05-08 12:19] LABS: Bilirubin Direct 0.1 mg/dl (0-0.2)
[2023-05-08 12:25] LABS: Thyroid Stimulating Hormone 1.615 uIu/ml (0.300-4.500)
[2023-05-08 12:41] LABS: INR 1.1 (0.9-1.1); Prothrombin Time 11.8 Seconds (9.0-12.0)
[2023-05-08 13:13] LABS: Adenovirus PCR Not Detected (NotDetected); Bordetella parapertussis PCR Not Detected (NotDetected); Bordetella pertussis PCR Not Detected (NotDetected); Chlamydia pneumoniae PCR Not Detected (NotDetected); Coronavirus 229E PCR Not Detected (NotDetected); Coronavirus CoV-2 (COVID19)PCR Not Detected (NotDetected); Coronavirus HKU1 PCR Not Detected (NotDetected); Coronavirus NL63 PCR Not Detected (NotDetected); Coronavirus OC43PCR Not Detected (NotDetected); Human Metapneumovirus PCR Not Detected (NotDetected); Influenza A PCR Not Detected (NotDetected); Influenza B PCR Not Detected (NotDetected); Mycoplasma pneumoniae PCR Not Detected (NotDetected); Parainfluenza Virus 1 PCR Not Detected (NotDetected); Parainfluenza Virus 2 PCR Not Detected (NotDetected); Parainfluenza Virus 3 PCR Not Detected (NotDetected); Parainfluenza Virus 4 PCR Not Detected (NotDetected); Respiratory Syncytial VirusPCR Not Detected (NotDetected); Rhinovirus/Enterovirus PCR Not Detected (NotDetected)
[2023-05-08] MEDS ORDERED: MAGNESIUM SULFATE / D5W 1 GM/100 ML BAG IV STA (13:46)
--- NOTE | 2023-05-08 13:54 | Electrocardiogram Report ---
Test Reason : Blood Pressure : / mmHG Vent. Rate : 088 BPM Atrial Rate : 000 BPM P-R Int : 000 ms QRS Dur : 084 ms QT Int : 392 ms P-R-T Axes : 000 069 081 degrees QTc Int : 474 ms Atrial fibrillation Abnormal ECG When compared with ECG of 16-OCT-2022 14:15, Atrial fibrillation has replaced Sinus rhythm Confirmed by David Day ([id number]) on 05/08/2023 1:54:04 PM Referred By: REFERRED SELF Confirmed By:David Day
[2023-05-08 14:28] LABS: Appearance Urine Clear (Clear); Bilirubin Urine Negative (Negative); Blood Urine Negative (Negative); Color Urine Yellow; Glucose Urine UA Negative (Negative); Ketones Urine Negative (Negative); Leukocyte Esterase Urine Negative (Negative); Nitrite Urine Negative (Negative); Protein Urine Negative (Negative); Specific Gravity Urine 1.005 (1.000-1.030); Urobilinogen Urine Negative (Negative); pH Urine 5.5 (4.5-7.5)
--- NOTE | 2023-05-08 14:33 | History & Physical Report ---
Date of Service May 08, 2023 Assessment & Plan (1) Weakness: Plan: Weakness Patient endorses alcohol intoxication, but also endorses weakness has been progression over several days which is worse than usual and is now limiting his ability to move from his wheelchair. Suspect global deconditioning and weakness in the setting of ongoing alcohol abuse thiamine deficiency We will treat alcohol as noted below Bio fire is negative, no respiratory symptoms Denies infectious symptoms. No leukocytosis Hyponatremic at 123 with normal glucose, suspect beer Potomania Replete electrolytes as indicated, PT/OT (2) Hyponatremia: Plan: Hyponatremia -Suspect beer potomania rather than SIADH Fluids for alcohol treatment as noted Trend BMP every 4 hours. If sodium decreasing rather than improving with fluids, fluid restrict at that time in order urine sodium/osmolality. (3) Alcohol intoxication: Plan: Alcohol intoxication, dependency, abuse Patient with alcohol 134.5 on admission. Was bindge drinking last night, last drink beer in the evening. At least 6 pack daily, has prior history of withdrawal We will admit on DAR S, Librium protocol Banana bag Thiamine daily Folic acid daily (4) Diabetic neuropathy associated with type 2 diabetes mellitus: Plan: Type II DM Hold home metformin - Basal Bolus weight based - Goal 110-150 (5) Amputation of right lower extremity below knee: Plan: - Site intact, naf. No cellulitis (6) HTN (hypertension): Plan: Hypertension Continue metoprolol (7) Hyperlipidemia: Plan: Hyperlipidemia Continue atorvastatin (8) Atrial fibrillation: Plan: A-fib with intermittently rapid rate on admission. Patient is followed with cardiology as an outpatient previously, not on anticoagulant due to recurrent fall risk with continued alcohol abuse and medication noncompliance. Continuemetoprolol History of Present Illness Primary Care Provider: Jojo Mckeon MD Willie Dixon is a 62-year-old male with a past history of type 2 diabetes, hypertension, tobacco abuse, A-fib with RVR, thiamine deficiency and alcohol abuse, hyperlipidemia, COPD who presents to the ER with generalized weakness and inability to transition from wheelchair to his bed due to severe weakness which has been worse for several days. Has been continuing to drink alcohol. Has not passed out or hit his head. Patient is slurring speech while in the ER and appears intoxicated. Extremity testing is limited by right BKA, but no obvious focal strength deficits. Alcohol 134.5 at time of admission, BioFire is negative Patient seen at the bedside. He reports he feels very tired, and had several sixpacks of beer last night does not remember how many. Reports he normally drinks 1-2 sixpacks per night and has been drinking daily for several weeks. Does endorse that he needs to drink less. Denies chest pain, chest pressure. N o fever chills or sweats. Denies focal strength or sensory changes. Reports he feels washed out all over and is now too weak to stand. Has never had a seizure before. Denies history of DTs. Reports he does not recall ever having low sodium before. Last drink was last night. Denies recreational drug use. Full code. Allergies Allergy/AdvReac Type Severity Reaction Status Date / Time No Known Allergies Allergy Verified 11/12/22 10:02 Home Medications Medication Instructions Recorded Confirmed Type Wheelchair (Manual) (Manual #1 ea 10/10/22 Rx Wheelchair) Wheelchair (Manual) (Manual #1 ea 10/10/22 10/10/22 Rx Wheelchair) Wheeled Walker #1 ea 10/10/22 10/10/22 Rx Knee Scooter #1 ea 11/18/22 Rx blood sugar diagnostic (OneTouch #100 ea 11/19/22 Rx Ultra Test strips) blood-glucose meter (OneTouch #1 ea 11/19/22 Rx Ultra2 Meter) lancets 33 gauge (OneTouch Delica #100 ea 11/19/22 Rx Lancets) atorvastatin 80 mg tablet 80 mg PO PM #90 tabs 05/05/23 05/08/23 Rx meloxicam 7.5 mg tablet 7.5 mg PO BID PRN pain #180 tabs 05/05/23 05/08/23 Rx metformin 1,000 mg tablet 500 mg PO BID #180 tabs 05/05/23 05/08/23 Rx metoprolol tartrate 50 mg tablet 50 mg PO BID #60 tabs 05/05/23 05/08/23 Rx amitriptyline 25 mg tablet 25 mg PO QPM 05/08/23 05/08/23 History Past Med/Surg History Medical History (Updated 05/08/23 @ 14:48 by Ray Hood MD) Alcohol dependence, daily use 6 pack beer per day per patient Anxiety Atrial fibrillation Dx 2014, follows with [facility] cardiology last visit 04/2022 [place] not to be AC candidate due to medical noncompliance and alcohol abuse per cardio records Background diabetic retinopathy associated with type 2 diabetes mellitus BPH (benign prostatic hyperplasia) COPD (chronic obstructive pulmonary disease) Breathing enlarged Diabetes type 2, uncontrolled NIDDM Hgb A1C 6.5 on 10/16/22 Diabetic neuropathy Encounter for pre-operative examination Hyperlipidemia Hypertension Mass of subcutaneous tissue of back stable x several years (right upper side) Osteomyelitis of right tibia Right ankle fracture November 2020- led to osteomyelitis per records Pancreatic mass Stable per pt Personal history of diabetic foot ulcer Right Segmental and somatic dysfunction of upper extremity Temporomandibular joint disorder Right side clicking, no locking Surgical History History of esophagogastroduodenoscopy (EGD) History of hand surgery CHILD History of tooth extraction Status post laser cataract surgery of both eyes Family History Grandfather Myocardial infarction Father Diabetes Mother Dementia Brother No problems noted. Sister No problems noted. Sister No problems noted. Sister No problems noted. Denies family history of Ovarian cancer Prostate cancer Breast cancer Colorectal cancer Social History Smoking Status: Current every day smoker Tobacco Type: Cigarettes Age Started Using Tobacco: 19; packs per day: 1; Cigarettes Per Day: 1 PPD x 40+ years ADVISED; Second Hand Exposure: No; Do You Dip or Chew Tobacco: No; Hx Alcohol Use: Yes (6 PCK PER DAY) Alcohol type: beer Alcohol type Comment: 6 PACK DAILY PER PT Hx Substance Use: Yes Last Used Substance Other:: two days ago- ONLY USES WHEN NEEDED, NOT DAILY Substance Use Type Other:: medical card prn Preferred Language: Malay Communication Ability: Effective Visual Impairment: No Limitations Hearing Ability: Normal Surfboard Maker Required: No Beliefs That Will Affect Care: None marital status: Single Current Living Situation: Alone Current Living Situation Comment: states has no one to help current occupational status: employed current occupation: SEL[employer] Feels Safe at Home: Yes Childhood Exposure to Second-Hand Smoke: No Diet: regular caffeine: No during the past year weight has: remained stable Dental Care, Regularly: No Physical Activity Frequency: Does not Exercise Seatbelt Use: always Sunscreen Use: No Assistive Devices: Crutches and Wheelchair Physical Exam Physical Exam: General: Fatigued appearing. NAD. Cooperative. HEENT: Atraumatic, normocephalic. Vision/hearing grossly intact Pulm: CTAB A&P. -wheezes, -rales, -rhonchi. Symmetrical chest rise. No increased work of breathing. No respiratory distress. Cardiac: Regular, tachycardic, -mrg. Radial pulses intact and symmetrical. Abdominal: Nontender, nondistended, soft. BS present. Ext: R BKA. Site intact. No cellulitis. Distal sensation grossly intact in upper ext, LLE, and R stump. Results & Data Results & Data Vital Signs (Past 12 Hours) Vital Signs Temp Pulse Resp BP Pulse Ox O2 Del Method 05/08/23 14:26 100 H 16 164/103 H 100 05/08/23 13:00 100 H 17 131/81 98 05/08/23 12:21 93 H 05/08/23 12:00 99 H 13 121/87 99 05/08/23 11:30 123/81 99 05/08/23 11:15 36.4 C L 97 H 15 146/109 H 100 Room Air PG Care Time/CCT Total # of Minutes Spent Total Time Spent with Patient: Total time spent is greater than 50% in coordination of care (as documented) at patient's floor/unit and/or counseling patient: Coding Level of Care Code 14543 INT INP/OBS CARE 3/75MIN Diagnoses Weakness R53.1 Hyponatremia E87.1 Alcohol intoxication F10.929 Diabetic neuropathy associated with type 2 diabetes mellitus E11.40 Amputation of right lower extremity below knee S88.111A HTN (hypertension) I10 Hyperlipidemia E78.5 Atrial fibrillation I48.91
--- NOTE | 2023-05-08 14:38 | CT Scan Report ---
CT head/brain wo con CLINICAL HISTORY: 62 years-old Male with weak, pain, fall. Acute headache with weakness TECHNIQUE: Multiple axial CT images of the head were obtained without contrast. A dose lowering tech nique was utilized adhering to the principles of ALARA. COMPARISON: CT cervical spine of same day FINDINGS: No acute intracranial hemorrhage, midline shift, intracranial mass, hydrocephalus, territorial ischem ia or abnormal extra-axial collection. Mild involutional changes. Study is motion degraded. The calvarium is intact. The paranasal sinuses, mastoid air cells, and middle ear cavities are clear . IMPRESSION: No acute intracranial abnormality. ACT 112: Negative or not required by law. The above report was generated using voice recognition software. It may contain grammatical, syntax o r spelling errors. Electronically signed by: Enzo De Jesus M.D. 05/08/2023 2:36 PM
--- NOTE | 2023-05-08 14:40 | CT Scan Report ---
CERVICAL SPINE CT CT DOSE: 1137.06 mGy.cm HISTORY: weak, pain, fall TECHNIQUE: Multiaxial CT images of the cervical spine were performed and reformatted in the sagittal and coronal plane without the use of contrast. A dose lowering technique was utilized adhering to th e principles of ALARA. COMPARISON: None. FINDINGS: No fractures. No subluxation. Prevertebral soft tissues and the C1-C2 interval are intact. No pneumothorax. Scattered subcentimeter nodules measure up to 3 mm within the lung apices which appe ar stable and are therefore likely benign. Moderate degenerative disease within the mid to lower cerv ical spine. There is straightening of the cervical spine. IMPRESSION: No fractures within the cervical spine. ACT 112: Negative or not required by law. Electronically signed by: Chip Cerda M.D. 05/08/2023 2:38 PM
[2023-05-08] MEDS ORDERED: GLUCAGON FOR INJ 1 MG VIAL SQ PRN (14:49)
[2023-05-08] MEDS ORDERED: DEXTROSE 50% 50 ML SYRINGE IV PRN (14:49)
[2023-05-08] MEDS ORDERED: GLUCOSE 40% GEL 15 GM TUBE PO PRN (14:49)
[2023-05-08] MEDS ORDERED: GLUCOSE 10 TAB/TUBE PO PRN (14:49)
[2023-05-08] MEDS ORDERED: CARBOHYDRATES FOR HYPOGLYCEMIA PO PRN (14:49)
[2023-05-08] MEDS ORDERED: METOPROLOL SUCC 50MG EXT REL TAB PO STA (16:03)
[2023-05-08] MEDS ORDERED: LORazepam 2 MG/1 ML VIAL IV STA (16:03)
[2023-05-08] MEDS ORDERED: LABETALOL HCL IV 5 MG/ML 20ML IV PRN (16:03)
[2023-05-08] MEDS ORDERED: chlordiazePOXIDE ALCOHOL WITHDRAWL 50MG PO STA (17:59)
[2023-05-08 18:48] LABS: BUN Creatinine Ratio 5.9 (10-20); Calcium 8.9 mg/dl (8.6-10.3); Creatinine Clr Calc Pharmacy 103.6 ml/min; Potassium 4.5 mmol/L (3.5-5.1)
[2023-05-08] MEDS: chlordiazePOXIDE HCl 25 MG CAP PO SCH (18:55)
[2023-05-08] MEDS: MAGNESIUM SULFATE / D5W 1 GM/100 ML BAG IV SCH ×2 (18:55→21:34)
[2023-05-08] MEDS: INSULIN ASPART PER UNIT CHARGE SC SCH ×2 (19:19→22:02)
[2023-05-08] MEDS: METOPROLOL TARTRATE 50 MG TAB PO SCH (21:22)
[2023-05-08] MEDS: AMITRIPTYLINE HCL 25 MG TAB PO SCH (21:23)
[2023-05-08] MEDS: ATORVASTATIN 40 MG TAB PO SCH (21:23)
[2023-05-08 22:56] LABS: BUN Creatinine Ratio 7.3 (10-20); Calcium 8.7 mg/dl (8.6-10.3); Creatinine Clr Calc Pharmacy 80.8 ml/min; Est GFR (African American) 84.5 ml/min; Est GFR (Non-African American) 72.9 ml/min; Potassium 4.5 mmol/L (3.5-5.1)
[2023-05-09] MEDS: chlordiazePOXIDE HCl 25 MG CAP PO SCH ×4 (00:54→18:38)
[2023-05-09 02:21] LABS: Basophils # (auto) 0.03 K/uL (0.00-0.20); Basophils % (auto) 0.4 %; Eosinophils # (auto) 0.13 K/uL (0.00-0.50); Eosinophils % (auto) 1.8 %; Hematocrit (blood only) 36.5 % (42.0-52.0); Hemoglobin 13.3 g/dl (14.0-18.0); Immature Granulocytes # (auto) 0.02 K/uL (0.01-0.20); Immature Granulocytes % (auto) 0.3 %; Lymphocytes # (auto) 2.27 K/uL (1.20-3.40); Mean Corpuscular Hemoglobin 33.7 pg (25.0-34.0); Mean Corpuscular Hgb Conc 36.4 g/dL (32.0-36.0); Mean Corpuscular Volume 92.4 fL (80.0-100.0); Mean Platelet Volume 9.3 fL (9.4-12.4); Monocytes # (auto) 0.93 K/uL (0.11-0.59); Monocytes % (auto) 13.1 %; Neutrophils # (auto) 3.71 K/uL (1.40-6.50); Neutrophils % (auto) 52.4 %; Platelet Count 187 K/uL (130-400); RDW Coefficient of Variation 11.7 % (11.5-14.5); RDW Standard Deviation 39.8 fL (36.4-46.3); Red Blood Count 3.95 M/uL (4.70-6.10); White Blood Count 7.09 K/ul (4.8-10.8)
[2023-05-09 02:22] LABS: BUN Creatinine Ratio 7.9 (10-20); Calcium 8.8 mg/dl (8.6-10.3); Creatinine Clr Calc Pharmacy 77.3 ml/min; Potassium 4.3 mmol/L (3.5-5.1)
[2023-05-09] MEDS: THIAMINE HCL 100 MG TAB PO SCH (08:29)
[2023-05-09] MEDS: ENOXAPARIN INJ 40 MG/0.4 ML SYR SQ SCH (08:30)
[2023-05-09] MEDS: METOPROLOL TARTRATE 50 MG TAB PO SCH ×2 (08:30→21:06)
[2023-05-09] MEDS ORDERED: cloNIDine HCL 0.1 MG TAB PO PRN (08:45)
--- NOTE | 2023-05-09 08:50 | Hospitalist Progress Note ---
Date of Service May 09, 2023 Assessment & Plan (1) Weakness: Plan: Weakness Patient endorses alcohol intoxication, but also endorses weakness has been progression over several days which is worse than usual and is now limiting his ability to move from his wheelchair. Suspect global deconditioning and weakness in the setting of ongoing alcohol abuse thiamine deficiency Bio fire is negative, no respiratory symptoms Hyponatremic at 123 with normal glucose, suspect beer Potomania Replete electrolytes as indicated, PT/OT (2) Hyponatremia: Plan: Hyponatremia -Suspect beer potomania rather than SIADH Fluids for alcohol treatment as noted restrict fluids (3) Alcohol intoxication: Plan: Alcohol intoxication, dependency, abuse Patient with alcohol 134.5 on admission. Was bindge drinking last night, last drink beer in the evening. At least 6 pack daily, has prior history of withdrawal We will admit on DAR S, Librium protocol Banana bag Thiamine daily Folic acid daily (4) Diabetic neuropathy associated with type 2 diabetes mellitus: Plan: Type II DM Hold home metformin - Basal Bolus weight based - Goal 110-150 (5) Amputation of right lower extremity below knee: Plan: - Site intact, naf. No cellulitis (6) HTN (hypertension): Plan: Hypertension Continue metoprolol (7) Hyperlipidemia: Plan: Hyperlipidemia Continue atorvastatin (8) Atrial fibrillation: Plan: A-fib with intermittently rapid rate on admission. Patient is followed with cardiology as an outpatient previously, not on anticoagulant due to recurrent fall risk with continued alcohol abuse and medication noncompliance. Continue metoprolol Admission and Anticipated Discharge Date Admission Date: May 08, 2023 Subjective Patient is pleasant and mentally intact despite his alcohol withdrawal. He is receiving good doses of medications. He has no focal complaints or problems but does recall feeling a lot worse when he was at home. Later today became markedly hypertensive we will continue to try to control blood pressure with as needed medications until we have more through his withdrawal Physical Exam Physical Exam: Alert and oriented x3 Card exam is regular lungs are clear He has a right BKA stump is intact Results & Data Results & Data Vital Signs (Past 12 Hours) Vital Signs Pulse Pulse Resp BP BP Pulse Ox O2 Del Method 05/09/23 08:27 78 17 181/98 H 97 Room Air 05/09/23 07:35 75 05/09/23 07:00 77 22 183/107 H 94 05/09/23 06:30 74 20 154/90 H 95 10/13/23 06:00 75 18 171/87 H 95 05/09/23 05:30 73 26 H 146/77 H 94 05/09/23 05:00 74 16 164/90 H 95 05/09/23 04:30 77 18 147/96 H 96 05/09/23 04:00 76 24 140/82 97 05/09/23 03:30 76 16 145/92 H 95 05/09/23 03:01 78 12 173/79 H 96 05/09/23 02:30 76 18 137/76 95 05/09/23 02:00 77 20 151/90 H 97 05/09/23 01:30 76 24 138/71 95 05/09/23 01:00 80 20 146/74 H 96 05/09/23 00:30 78 24 151/78 H 95 05/09/23 00:00 78 20 166/96 H 98 05/08/23 23:30 79 18 150/83 H 97 05/08/23 23:00 79 20 156/84 H 96 05/08/23 23:09 77 05/08/23 22:22 82 18 163/85 H 99 Room Air Laboratory Results Reviewed CBC reviewed chemistry PG Care Time/CCT Total # of Minutes Spent Total Time Spent with Patient: Total time spent is greater than 50% in coordination of care (as documented) at patient's floor/unit and/or counseling patient: Coding Level of Care Code 99160 SUB INP/OBS CARE 2/35MIN Diagnoses Weakness R53.1 Hyponatremia E87.1 Alcohol intoxication F10.929 Diabetic neuropathy associated with type 2 diabetes mellitus E11.40 Amputation of right lower extremity below knee S88.111A HTN (hypertension) I10 Hyperlipidemia E78.5 Atrial fibrillation I48.91
[2023-05-09] MEDS: INSULIN ASPART PER UNIT CHARGE SC SCH ×4 (09:46→21:07)
[2023-05-09] MEDS: FOLIC ACID 1 MG in SYRINGE 9.8 ML IV SCH (09:46)
[2023-05-09] MEDS ORDERED: hydrALAZINE HCL 20 MG/ML VIAL IV PRN (17:25)
[2023-05-09] MEDS: AMITRIPTYLINE HCL 25 MG TAB PO SCH (21:06)
[2023-05-09] MEDS: ATORVASTATIN 40 MG TAB PO SCH (21:07)
[2023-05-10] MEDS: chlordiazePOXIDE HCl 25 MG CAP PO SCH ×2 (01:34→08:17)
[2023-05-10] MEDS: ENOXAPARIN INJ 40 MG/0.4 ML SYR SQ SCH (08:17)
[2023-05-10] MEDS: INSULIN ASPART PER UNIT CHARGE SC SCH (08:17)
[2023-05-10] MEDS: METOPROLOL TARTRATE 50 MG TAB PO SCH (08:18)
[2023-05-10] MEDS: THIAMINE HCL 100 MG TAB PO SCH (08:18)
[2023-05-10] MEDS: FOLIC ACID 1 MG in SYRINGE 9.8 ML IV SCH (08:19)
[2023-05-10 08:40] LABS: BUN Creatinine Ratio 13.4 (10-20); Calcium 8.8 mg/dl (8.6-10.3); Creatinine Clr Calc Pharmacy 82.6 ml/min; Est GFR (African American) 97.3 ml/min; Est GFR (Non-African American) 83.9 ml/min; Potassium 4.2 mmol/L (3.5-5.1)
[2023-05-10 08:43] LABS: Basophils # (auto) 0.02 K/uL (0.00-0.20); Basophils % (auto) 0.5 %; Eosinophils # (auto) 0.16 K/uL (0.00-0.50); Eosinophils % (auto) 3.8 %; Hematocrit (blood only) 35.2 % (42.0-52.0); Hemoglobin 12.7 g/dl (14.0-18.0); Immature Granulocytes # (auto) 0.02 K/uL (0.01-0.20); Immature Granulocytes % (auto) 0.5 %; Lymphocytes # (auto) 1.78 K/uL (1.20-3.40); Lymphocytes % (auto) 42.2 %; Mean Corpuscular Hemoglobin 33.5 pg (25.0-34.0); Mean Corpuscular Hgb Conc 36.1 g/dL (32.0-36.0); Mean Corpuscular Volume 92.9 fL (80.0-100.0); Mean Platelet Volume 9.8 fL (9.4-12.4); Monocytes % (auto) 14.2 %; Neutrophils # (auto) 1.64 K/uL (1.40-6.50); Neutrophils % (auto) 38.8 %; Platelet Count 164 K/uL (130-400); RDW Coefficient of Variation 11.6 % (11.5-14.5); RDW Standard Deviation 39.8 fL (36.4-46.3); Red Blood Count 3.79 M/uL (4.70-6.10); White Blood Count 4.22 K/ul (4.8-10.8)
[2023-05-10] MEDS ORDERED: LIDOCAINE 5% 1 PATCH TD STA (10:54)
--- NOTE | 2023-05-10 16:16 | Discharge Summary ---
Date of Service May 10, 2023 Admission HPI Per Admitting Provider Willie Dixon is a 62-year-old male with a past history of type 2 diabetes, hypertension, tobacco abuse, A-fib with RVR, thiamine deficiency and alcohol abuse, hyperlipidemia, COPD who presents to the ER with generalized weakness and inability to transition from wheelchair to his bed due to severe weakness which has been worse for several days. Has been continuing to drink alcohol. Has not passed out or hit his head. Patient is slurring speech while in the ER and appears intoxicated. Extremity testing is limited by right BKA, but no obvious focal strength deficits. Alcohol 134.5 at time of admission, BioFire is negative Patient seen at the bedside. He reports he feels very tired, and had several sixpacks of beer last night does not remember how many. Reports he normally drinks 1-2 sixpacks per night and has been drinking daily for several weeks. Does endorse that he needs to drink less. Denies chest pain, chest pressure. No fever chills or sweats. Denies focal strength or sensory changes. Reports he feels washed out all over and is now too weak to stand. Has never had a seizure before. Denies history of DTs. Reports he does not recall ever having low sodium before. Last drink was last night. Denies recreational drug use. Full code. Principal Diagnosis Alcohol withdrawal Discharge Exam Patient is awake alert understands the ramifications him going home early. Cardiac exam is regular not tachycardic blood pressures controlled Discharge Data Allergies Allergy/AdvReac Type Severity Reaction Status Date / Time No Known Allergies Allergy Verified 11/12/22 10:02 Consultations 05/08/23 14:07 ED Decision to Admit Stat Ordered Studies 05/08/23 13:34 CT cervical spine wo con Stat CT head/brain wo con Stat Hospital Course (1) Weakness: Weakness Patient endorses alcohol intoxication, but also endorses weakness has been progression over several days which is worse than usual and is now limiting his ability to move from his wheelchair. Patient states he does not wish to stop drinking and therefore will not put him on a tapering dose of clonazepam at home. He only received 1 dose of clonidine for blood pressure control in the hospital and says he is leaving no matter what. He was discharged home with instructions to consider discussing his alcohol use with his primary care provider or attending AA sessions. Bio fire is negative, no respiratory symptoms Hyponatremic at 123 with normal glucose, suspect beer Potomania sodium has increased to 132 with only fluid restriction. Patient does not have a prosthesis for his BKA but gets around in a wheelchair and wishes to go home. (2) Hyponatremia: Hyponatremia improving/resolving -Suspect beer potomania rather than SIADH Fluids for alcohol treatment as noted restrict fluids (3) Alcohol intoxication: Alcohol intoxication, dependency, abuse Not interested in cessation at this time (4) Diabetic neuropathy associated with type 2 diabetes mellitus: Type II DM Resume home metformin - (5) Amputation of right lower extremity below knee: - Site intact, naf. No cellulitis patient states that this occurred due to a fracture that was unintended to during COVID (6) HTN (hypertension): Hypertension Continue metoprolol (7) Hyperlipidemia: Hyperlipidemia Continue atorvastatin (8) Atrial fibrillation: A-fib with intermittently rapid rate on admission. Patient is followed with cardiology as an outpatient previously, not on anticoagulant due to recurrent fall risk with continued alcohol abuse and medication noncompliance. Continue metoprolol atrial fibrillation has resolved Total Time Total Time Spent Total Time Spent (In Minutes): It required greater than 30 minutes to prepare this patient for discharge Discharge Plan Discharge Items Patient Disposition: Home - Self-Care Reason For Visit: WEAKNESS, ETOH WITHDRAWAL Discharge Diagnosis: alcohol withdrawal Activity: Resume your previous activity Non-emergency contact: Primary Care Provider Call non-emergency contact if: your symptoms worsen Follow-up/Referrals: Jojo Mckeon MD [Primary Care Provider] - Diet: Regular Addtl Attending Provider Instructions: please consider seeing AA about your alcohol use, speak to your primary care Pending Studies at Discharge: No Stand-Alone Forms: [employer], Smoking Cessation Medications and DC Order Prescriptions: Continued (DME) Manual Wheelchair Device See Rx Instructions .Route Qty: 1 0RF Rx Instructions: As directed S82.851K- standard WC/with cushion, needed x 1year (DME) Knee Scooter Misc See Rx Instructions .ROUTE .MEDSUPPLY Qty: 1 0RF Rx Instructions: As directed (DME) OneTouch Ultra Test Strip See Rx Instructions .Route Qty: 100 1RF Rx Instructions: CHECK BSG ONCE DAILY; DX CODE-E11.65 (DME) blood-glucose meter [OneTouch Ultra2 Meter] Misc See Rx Instructions .Route Qty: 1 0RF Rx Instructions: CHECK BSG ONCE DAILY; DX CODE-E11.65 (DME) lancets [OneTouch Delica Lancets] 33 gauge misc See Rx Instructions .Route Qty: 100 1RF Rx Instructions: TEST BSG ONCE DAILY; DX CODE- E11.65 atorvastatin 80 mg tablet 80 mg PO PM Qty: 90 1RF meloxicam 7.5 mg tablet 7.5 mg PO BID PRN (Reason: pain) Qty: 180 1RF metformin 1,000 mg tablet 500 mg PO BID Qty: 180 1RF metoprolol tartrate 50 mg tablet 50 mg PO BID Qty: 60 0RF (DME) Wheeled Walker Misc See Rx Instructions .MEDSUPPLY Qty: 1 0RF Rx Instructions: As directed (DME) Manual Wheelchair Device See Rx Instructions .Route Qty: 1 0RF Rx Instructions: As directed amitriptyline 25 mg tablet 25 mg PO QPM Rx Instructions: TAKE 1 TABLET BY MOUTH EVERY DAY IN THE EVENING Discharge Orders: Discharge Order (Routine); Ordered 05/10/23 Ordered By: Reagan Piper Admission Data Admit Date/Time: 05/08/23 14:35 Attending Provider: Reagan Piper Admit Provider: Ray Hood Primary Care Provider: Jojo Mckeon Other Providers: Ray Hood Other Interventions: Discharge Summary Assessment (RN) Last Done: 05/10/23 11:18 Coding Level of Care Code 76518 INP/OBS DISCH >30 MIN Diagnoses Weakness R53.1 Hyponatremia E87.1 Alcohol intoxication F10.929 Diabetic neuropathy associated with type 2 diabetes mellitus E11.40 Amputation of right lower extremity below knee S88.111A HTN (hypertension) I10 Hyperlipidemia E78.5 Atrial fibrillation I48.91
[2023-05-10] MEDS ORDERED: chlordiazePOXIDE HCl 25 MG CAP PO SCH (16:45)
== END 2023-05-10 12:53 | disposition home or self-care (01) | DRG 897 ==
LOC: ED 11:05 → EDINP 14:35 → SUATTDRO 14:35 → EDINP 17:58 → 2E 05-09 18:34